=== PATIENT | male | born 1945 | race Caucasian/White ===

== ENCOUNTER 2017-08-12 12:25 | Inpatient (IN) | payer MEDICARE ==
[2017-08-12] MEDS: ALLOPURINOL 300 MG TAB PO (09:00)
[2017-08-12] MEDS: ESCITALOPRAM OXALATE 10 MG TAB (LEXAPRO) PO (09:00)
[2017-08-12] MEDS: DULoxetine 30 MG CAP (CYMBALTA) PO (09:00)
[2017-08-12] MEDS: NS 2,400 ML in APPROPRIATE DILUENT 1 EA IV (13:00)
[2017-08-12 13:12] LABS: HEMATOCRIT 44.8 % (42.0-52.0); HEMOGLOBIN 14.9 g/dl (13.5-17.5); MEAN CORPUSCULAR HEMOGLOBIN 31.8 pg (27.0-33.0); MEAN CORPUSCULAR HGB CONC 33.3 g/dl (32.0-36.5); MEAN CORPUSCULAR VOLUME 95.7 fl (80.0-96.0); PLATELET COUNT, AUTOMATED 144 10^3/uL (150-450); RED BLOOD COUNT 4.68 10^6/uL (4.30-6.10); RED CELL DISTRIBUTION WIDTH 16.1 % (11.5-14.5); WHITE BLOOD COUNT 17.4 10^3/uL (4.0-10.0)
[2017-08-12 13:17] LABS: PROTHROMBIN TIME 15.4 SECONDS (12.4-14.5)
[2017-08-12 13:18] LABS: PARTIAL THROMBOPLASTIN TIME 34.6 SECONDS (26.8-37.9)
[2017-08-12 13:28] LABS: ALBUMIN/GLOBULIN RATIO 0.73 (1.00-1.93); ALKALINE PHOSPHATASE 102 U/L (45-117); ALT/SGPT 255 U/L (12-78); AMYLASE 16 U/L (25-115); ANION GAP 8 MEQ/L (8-16); AST/SGOT 370 U/L (7-37); BILIRUBIN,DIRECT 0.2 MG/DL (0.0-0.2); BILIRUBIN,TOTAL 0.5 MG/DL (0.2-1.0); BLOOD UREA NITROGEN 39 MG/DL (7-18); CARBON DIOXIDE LEVEL 25 MEQ/L (21-32); CHLORIDE LEVEL 97 MEQ/L (98-107); CPK CREATINE PHOSPHOKINASE 329 U/L (39-308); CREATININE FOR GFR 3.44 MG/DL (0.70-1.30); GLOMERULAR FILTRATION RATE 18.9 (>42); GLUCOSE, FASTING 111 MG/DL (70-100); MB/CK RELATIVE INDEX 4.55 (< OR =4); POTASSIUM SERUM 5.1 MEQ/L (3.5-5.1); SODIUM LEVEL 130 MEQ/L (136-145); TOTAL PROTEIN 7.1 GM/DL (6.4-8.2)
[2017-08-12 13:38] LABS: ADD MANUAL DIFFER YES; DIFF SLIDE NUMBER 285; POSITIVE MORPH POS FLAG
[2017-08-12 13:40] LABS: BANDS 8 % (< 11); LYMPHOCYTES 9 % (16-52); MONOCYTES 5 % (0-8); NEUTROPHILS 78 % (35-75)
[2017-08-12 13:41] LABS: LACTIC ACID SEPSIS PROTOCOL 3.9 MMOL/L (0.4-2.0)
[2017-08-12 13:41] LABS: PLATELET ESTIMATE DECREASED (NORMAL); TROPONIN I 2.62 NG/ML (< 0.10)
[2017-08-12 13:42] LABS: ANISOCYTOSIS 1+; POLYCHROMASIA 1+
[2017-08-12 14:03] LABS: INFLUENZA A AMPLIFICATION NEGATIVE (NEGATIVE); INFLUENZA B AMPLIFICATION NEGATIVE (NEGATIVE)
[2017-08-12 14:06] LABS: ABG BASE EXCESS -5.7 (-2.0-2.0); ABG HCO3 19.6 MEQ/L (22.0-26.0); ABG O2 SATURATION 93.5 % (95.0-99.0); ABG PARTIAL PRESSURE CO2 37.8 mmHg (35.0-45.0); ABG PARTIAL PRESSURE O2 72.8 mmHg (75.0-100.0); ABG STANDARD HCO3 19.8 MEQ/L (22.0-26.0); ABG TOTAL CO2 20.8 MEQ/L (23.0-31.0); ABG pH (ARTERIAL) 7.333 UNITS (7.350-7.450)
[2017-08-12] MEDS: VANCOMYCIN 1000 MG/20 ML VIAL (J3370) IP (14:30)
[2017-08-12] MEDS: IMIPENEM/CILASTATIN 500 MG in D5W MINI-BAG PLUS 100 ML IV (14:30)
[2017-08-12] MEDS: NOREPINEPHRINE BITARTRATE 8 MG in D5W 500 ML IV (14:35)
[2017-08-12] MEDS: NS 1,000 ML IV ×2 (14:45→16:00)
[2017-08-12] MEDS: VANCOMYCIN HCL 1,000 MG, VIAL MATE ADAPTER 1 EACH in D5W 250 ML IV ×2 (14:45→21:40)
[2017-08-12 16:04] LABS: APPEARANCE, URINE HAZY (CLEAR); BACTERIA, URINE AUTO 3+ (NEGATIVE); BILIRUBIN, URINE AUTO NEGATIVE (NEGATIVE); BLOOD, URINE BLOOD 2+ (NEGATIVE); COLOR, URINE YELLOW (YELLOW); GLUCOSE, URINE (UA) AUTO NEGATIVE (NEGATIVE); KETONE, URINE AUTO NEGATIVE (NEGATIVE); LEUKOCYTE ESTERASE, URINE AUTO 2+ (NEGATIVE); NITRITE, URINE AUTO NEGATIVE (NEGATIVE); PROTEIN, URINE AUTO 1+ mg/dL (NEGATIVE); RBC, URINE AUTO 14 /HPF (0-3); SPECIFIC GRAVITY URINE AUTO 1.013 (1.002-1.035); SQUAMOUS EPITHELIAL CELL UR AU 0 /HPF (0-6); UROBILINOGEN, URINE AUTO 0.2 mg/dL (0.0-2.0); WBC, URINE AUTO 15 /HPF (0-3)
[2017-08-12] MEDS ORDERED: VANCOMYCIN HCL 750 MG, VIAL MATE ADAPTER 1 EACH in D5W 250 ML IV (17:45)
[2017-08-12] MEDS: MORPHINE 4 MG/ML 1ML VIAL/SYRINGE (J2270) IV (19:47)
[2017-08-12] MEDS: ACETAMINOPHEN TAB 650MG DOSE (2X325MG) PO ×2 (19:49→23:25)
[2017-08-12 19:55] LABS: CPK CREATINE PHOSPHOKINASE 537 U/L (39-308); THYROXINE (T4) 6.3 UG/DL (4.5-12.0)
[2017-08-12 19:59] LABS: CK-MB VALUE MASS 26.6 NG/ML (<3.6); FREE THYROXINE INDEX 2.3 % (1.4-3.8); MB/CK RELATIVE INDEX 4.95 (< OR =4); T UPTAKE 36 % (33-40)
[2017-08-12] MEDS ORDERED: NOREPINEPHRINE BITARTRATE 16 MG in D5W 484 ML IV (20:00)
[2017-08-12 20:04] LABS: TROPONIN I 3.22 NG/ML (< 0.10)
[2017-08-12 20:08] LABS: OSMOLALITY URINE 275 MOSM/KG (500-800)
[2017-08-12 20:16] LABS: CHLORIDE,RANDOM URINE 14 MEQ/L; POTASSIUM RANDOM URINE 42.5 MEQ/L; SODIUM,RANDOM URINE 15 MEQ/L; TOTAL PROTEIN,RANDOM URINE 86.3 MG/DL (0.0-12.0)
[2017-08-12] MEDS: TAMSULOSIN 0.4 MG CAP PO (20:24)
[2017-08-12] MEDS: METOPROLOL TART 25 MG TABLET PO (20:25)
[2017-08-12] MEDS: IMIPENEM/CILASTATIN 250 MG in D5W MINI-BAG PLUS 100 ML IV (20:34)
[2017-08-12] MEDS ORDERED: IPRATROPIUM 0.5MG/ALBUTEROL 2.5MG INH SOL UD 3ML (DUONEB)(J7620) NEB (21:30)
[2017-08-12] MEDS: PANTOPRAZOLE 40MG INJ (PROTONIX) (C9113) IV (21:37)
[2017-08-12] MEDS: SENOKOT S TAB PO (21:37)
[2017-08-12] MEDS: HEPARIN SOD (PORCINE) 5000 UNITS/ML VIAL SC (21:37)
[2017-08-12] MEDS: GABAPENTIN 300 MG CAP PO (21:37)
[2017-08-12] MEDS: ACYCLOVIR 200 MG CAPSULE PO (21:39)
[2017-08-12] MEDS: ASPIRIN 81 MG ENTERIC TAB PO (21:40)
[2017-08-12 23:13] LABS: ABG BASE EXCESS -4.5 (-2.0-2.0); ABG HCO3 19.9 MEQ/L (22.0-26.0); ABG O2 SATURATION 99.3 % (95.0-99.0); ABG PARTIAL PRESSURE CO2 34.8 mmHg (35.0-45.0); ABG PARTIAL PRESSURE O2 158.4 mmHg (75.0-100.0); ABG STANDARD HCO3 20.8 MEQ/L (22.0-26.0); ABG pH (ARTERIAL) 7.376 UNITS (7.350-7.450)
[2017-08-12] MEDS: VANCOMYCIN HCL 500 MG in D5W MINI-BAG PLUS 100 ML IV (23:25)
[2017-08-13 00:12] LABS: CK-MB VALUE MASS 15.3 NG/ML (<3.6); CPK CREATINE PHOSPHOKINASE 420 U/L (39-308); MB/CK RELATIVE INDEX 3.64 (< OR =4)
[2017-08-13 00:17] LABS: TROPONIN I 4.39 NG/ML (< 0.10)
[2017-08-13] MEDS: IPRATROPIUM 0.5MG/ALBUTEROL 2.5MG INH SOL UD 3ML (DUONEB)(J7620) NEB ×4 (02:34→20:39)
[2017-08-13] MEDS: IMIPENEM/CILASTATIN 250 MG in D5W MINI-BAG PLUS 100 ML IV ×4 (04:13→20:16)
[2017-08-13] MEDS: NS 1,000 ML IV (04:17)
[2017-08-13] MEDS: HEPARIN SOD (PORCINE) 5000 UNITS/ML VIAL SC ×3 (05:48→21:06)
[2017-08-13 06:05] LABS: HEMATOCRIT 35.8 % (42.0-52.0); MEAN CORPUSCULAR HEMOGLOBIN 31.8 pg (27.0-33.0); MEAN CORPUSCULAR HGB CONC 33.2 g/dl (32.0-36.5); MEAN CORPUSCULAR VOLUME 95.7 fl (80.0-96.0); PLATELET COUNT, AUTOMATED 116 10^3/uL (150-450); RED BLOOD COUNT 3.74 10^6/uL (4.30-6.10); WHITE BLOOD COUNT 18.2 10^3/uL (4.0-10.0)
[2017-08-13 06:10] LABS: HEMOGLOBIN 11.9 g/dl (13.5-17.5)
[2017-08-13 06:33] LABS: VANCOMYCIN RANDOM 19.9 UG/ML
[2017-08-13 06:38] LABS: ALBUMIN 2.4 GM/DL (3.2-5.2); ALBUMIN/GLOBULIN RATIO 0.83 (1.00-1.93); ALKALINE PHOSPHATASE 86 U/L (45-117); ALT/SGPT 177 U/L (12-78); ANION GAP 7 MEQ/L (8-16); AST/SGOT 182 U/L (7-37); BILIRUBIN,TOTAL 0.5 MG/DL (0.2-1.0); BLOOD UREA NITROGEN 40 MG/DL (7-18); CALCIUM LEVEL 7.6 MG/DL (8.8-10.2); CARBON DIOXIDE LEVEL 22 MEQ/L (21-32); CHLORIDE LEVEL 106 MEQ/L (98-107); CREATININE FOR GFR 1.96 MG/DL (0.70-1.30); GLOMERULAR FILTRATION RATE 36.2 (>42); GLUCOSE, FASTING 106 MG/DL (70-100); MAGNESIUM LEVEL 2.1 MG/DL (1.8-2.4); POTASSIUM SERUM 4.6 MEQ/L (3.5-5.1); SODIUM LEVEL 135 MEQ/L (136-145); TOTAL PROTEIN 5.3 GM/DL (6.4-8.2)
[2017-08-13 06:41] LABS: CK-MB VALUE MASS 13.5 NG/ML (<3.6); CPK CREATINE PHOSPHOKINASE 289 U/L (39-308); MB/CK RELATIVE INDEX 4.67 (< OR =4)
[2017-08-13 06:43] LABS: TROPONIN I 2.63 NG/ML (< 0.10)
[2017-08-13] MEDS ORDERED: NOREPINEPHRINE BITARTRATE 8 MG in D5W 500 ML IV (07:14)
[2017-08-13] MEDS: METOPROLOL TART 25 MG TABLET PO ×2 (09:00→20:00)
[2017-08-13] MEDS: VANCOMYCIN HCL 1,000 MG, VIAL MATE ADAPTER 1 EACH in D5W 250 ML IV (09:25)
[2017-08-13] MEDS: TAMSULOSIN 0.4 MG CAP PO ×2 (09:25→20:16)
[2017-08-13] MEDS: GABAPENTIN 300 MG CAP PO ×3 (09:26→20:16)
[2017-08-13] MEDS: ALLOPURINOL 300 MG TAB PO (09:26)
[2017-08-13] MEDS: ACYCLOVIR 200 MG CAPSULE PO ×3 (09:26→20:16)
[2017-08-13] MEDS: ASPIRIN 81 MG ENTERIC TAB PO (09:26)
[2017-08-13] MEDS: SENOKOT S TAB PO ×2 (09:26→20:16)
[2017-08-13] MEDS: ESCITALOPRAM OXALATE 10 MG TAB (LEXAPRO) PO (09:26)
[2017-08-13] MEDS: DULoxetine 30 MG CAP (CYMBALTA) PO (09:26)
[2017-08-13 10:08] LABS: CORTISOL AM 24.4 UG/DL (4.3-22.4)
[2017-08-13] MEDS: MORPHINE 4 MG/ML 1ML VIAL/SYRINGE (J2270) IV ×3 (12:22→20:16)
[2017-08-13] MEDS: PANTOPRAZOLE 40MG INJ (PROTONIX) (C9113) IV (20:16)
[2017-08-13] MEDS: ACETAMINOPHEN TAB 650MG DOSE (2X325MG) PO (21:06)
[2017-08-14] MEDS: MORPHINE 4 MG/ML 1ML VIAL/SYRINGE (J2270) IV ×3 (00:16→08:41)
[2017-08-14] MEDS: IPRATROPIUM 0.5MG/ALBUTEROL 2.5MG INH SOL UD 3ML (DUONEB)(J7620) NEB ×4 (01:39→21:13)
[2017-08-14] MEDS: IMIPENEM/CILASTATIN 250 MG in D5W MINI-BAG PLUS 100 ML IV ×2 (02:55→09:02)
[2017-08-14 05:44] LABS: HEMATOCRIT 37.7 % (42.0-52.0); HEMOGLOBIN 12.6 g/dl (13.5-17.5); MEAN CORPUSCULAR HEMOGLOBIN 31.3 pg (27.0-33.0); MEAN CORPUSCULAR HGB CONC 33.4 g/dl (32.0-36.5); MEAN CORPUSCULAR VOLUME 93.8 fl (80.0-96.0); PLATELET COUNT, AUTOMATED 111 10^3/uL (150-450); RED BLOOD COUNT 4.02 10^6/uL (4.30-6.10); RED CELL DISTRIBUTION WIDTH 15.7 % (11.5-14.5); WHITE BLOOD COUNT 10.4 10^3/uL (4.0-10.0)
[2017-08-14] MEDS: ACETAMINOPHEN TAB 650MG DOSE (2X325MG) PO ×2 (06:05→19:01)
[2017-08-14] MEDS: HEPARIN SOD (PORCINE) 5000 UNITS/ML VIAL SC (06:05)
[2017-08-14 06:13] LABS: ALBUMIN 2.4 GM/DL (3.2-5.2); ALBUMIN/GLOBULIN RATIO 0.83 (1.00-1.93); ALKALINE PHOSPHATASE 85 U/L (45-117); ALT/SGPT 132 U/L (12-78); ANION GAP 7 MEQ/L (8-16); AST/SGOT 86 U/L (7-37); BILIRUBIN,TOTAL 0.5 MG/DL (0.2-1.0); BLOOD UREA NITROGEN 29 MG/DL (7-18); CALCIUM LEVEL 7.8 MG/DL (8.8-10.2); CARBON DIOXIDE LEVEL 24 MEQ/L (21-32); CHLORIDE LEVEL 107 MEQ/L (98-107); CREATININE FOR GFR 1.33 MG/DL (0.70-1.30); GLOMERULAR FILTRATION RATE 56.6 (>42); GLUCOSE, FASTING 85 MG/DL (70-100); POTASSIUM SERUM 4.5 MEQ/L (3.5-5.1); SODIUM LEVEL 138 MEQ/L (136-145); TOTAL PROTEIN 5.3 GM/DL (6.4-8.2)
[2017-08-14] MEDS: NOREPINEPHRINE BITARTRATE 16 MG in D5W 484 ML IV (08:35)
[2017-08-14] MEDS: TAMSULOSIN 0.4 MG CAP PO ×2 (09:04→20:36)
[2017-08-14] MEDS: VANCOMYCIN HCL 1,000 MG, VIAL MATE ADAPTER 1 EACH in D5W 250 ML IV (09:04)
[2017-08-14] MEDS: SENOKOT S TAB PO ×2 (09:04→20:36)
[2017-08-14] MEDS: ALLOPURINOL 300 MG TAB PO (09:05)
[2017-08-14] MEDS: DULoxetine 30 MG CAP (CYMBALTA) PO (09:05)
[2017-08-14] MEDS: ASPIRIN 81 MG ENTERIC TAB PO (09:06)
[2017-08-14] MEDS: METOPROLOL TART 25 MG TABLET PO ×2 (09:06→20:36)
[2017-08-14] MEDS: GABAPENTIN 300 MG CAP PO ×3 (09:06→20:36)
[2017-08-14] MEDS: ACYCLOVIR 200 MG CAPSULE PO ×3 (09:06→20:36)
[2017-08-14] MEDS ORDERED: SODIUM CHLORIDE 0.9% INJ 10 ML SYR IV (10:00)
[2017-08-14] MEDS: ESCITALOPRAM OXALATE 10 MG TAB (LEXAPRO) PO (10:26)
[2017-08-14] MEDS: BACLOFEN 10 MG TAB PO ×2 (12:06→20:36)
[2017-08-14] MEDS: ERTAPENEM SODIUM 1 GM in NS MINI-BAG PLUS 50 ML IV (12:06)
[2017-08-14] MEDS: MORPHINE 30 MG SA TAB PO ×2 (13:48→21:37)
[2017-08-14] MEDS: SODIUM CHLORIDE 0.9% INJ 10 ML SYR IV ×2 (13:48→20:38)
[2017-08-14] MEDS: ONDANSETRON 4MG/2ML VIAL (J2405) IV (18:26)
[2017-08-14] MEDS: PANTOPRAZOLE 40MG INJ (PROTONIX) (C9113) IV (20:37)
[2017-08-15] MEDS: IPRATROPIUM 0.5MG/ALBUTEROL 2.5MG INH SOL UD 3ML (DUONEB)(J7620) NEB ×4 (01:45→21:15)
[2017-08-15] MEDS: MORPHINE 30 MG SA TAB PO ×3 (05:15→20:54)
[2017-08-15] MEDS: SODIUM CHLORIDE 0.9% INJ 10 ML SYR IV ×3 (05:15→20:52)
[2017-08-15 05:36] LABS: HEMATOCRIT 39.3 % (42.0-52.0); HEMOGLOBIN 13.3 g/dl (13.5-17.5); MEAN CORPUSCULAR HEMOGLOBIN 31.4 pg (27.0-33.0); MEAN CORPUSCULAR HGB CONC 33.8 g/dl (32.0-36.5); MEAN CORPUSCULAR VOLUME 92.9 fl (80.0-96.0); PLATELET COUNT, AUTOMATED 119 10^3/uL (150-450); RED BLOOD COUNT 4.23 10^6/uL (4.30-6.10); RED CELL DISTRIBUTION WIDTH 15.9 % (11.5-14.5); WHITE BLOOD COUNT 8.7 10^3/uL (4.0-10.0)
[2017-08-15 05:57] LABS: ALBUMIN 2.3 GM/DL (3.2-5.2); ALBUMIN/GLOBULIN RATIO 0.82 (1.00-1.93); ALKALINE PHOSPHATASE 83 U/L (45-117); ALT/SGPT 93 U/L (12-78); ANION GAP 3 MEQ/L (8-16); AST/SGOT 48 U/L (7-37); BILIRUBIN,TOTAL 0.4 MG/DL (0.2-1.0); BLOOD UREA NITROGEN 19 MG/DL (7-18); CALCIUM LEVEL 7.8 MG/DL (8.8-10.2); CARBON DIOXIDE LEVEL 28 MEQ/L (21-32); CHLORIDE LEVEL 110 MEQ/L (98-107); CREATININE FOR GFR 1.09 MG/DL (0.70-1.30); GLOMERULAR FILTRATION RATE > 60.0 (>42); GLUCOSE, FASTING 91 MG/DL (70-100); MAGNESIUM LEVEL 1.8 MG/DL (1.8-2.4); POTASSIUM SERUM 3.9 MEQ/L (3.5-5.1); SODIUM LEVEL 141 MEQ/L (136-145); TOTAL PROTEIN 5.1 GM/DL (6.4-8.2)
[2017-08-15] MEDS: GABAPENTIN 300 MG CAP PO ×3 (08:27→20:51)
[2017-08-15] MEDS: ESCITALOPRAM OXALATE 10 MG TAB (LEXAPRO) PO (08:27)
[2017-08-15] MEDS: DULoxetine 30 MG CAP (CYMBALTA) PO (08:27)
[2017-08-15] MEDS: ACYCLOVIR 200 MG CAPSULE PO ×3 (08:27→20:51)
[2017-08-15] MEDS: ALLOPURINOL 300 MG TAB PO (08:27)
[2017-08-15] MEDS: ASPIRIN 81 MG ENTERIC TAB PO (08:28)
[2017-08-15] MEDS: METOPROLOL TART 25 MG TABLET PO ×2 (08:28→20:54)
[2017-08-15] MEDS: TAMSULOSIN 0.4 MG CAP PO ×2 (08:28→20:52)
[2017-08-15] MEDS: BACLOFEN 10 MG TAB PO ×2 (08:28→20:52)
[2017-08-15] MEDS: SENOKOT S TAB PO ×2 (08:28→20:52)
[2017-08-15] MEDS: FINASTERIDE 5 MG TAB PO (11:02)
[2017-08-15] MEDS: ERTAPENEM SODIUM 1 GM in NS MINI-BAG PLUS 50 ML IV (11:20)
[2017-08-15] MEDS: PANTOPRAZOLE 40MG INJ (PROTONIX) (C9113) IV (20:51)
[2017-08-15] MEDS: ATORVASTATIN 20 MG TAB PO (20:51)
[2017-08-16] MEDS: IPRATROPIUM 0.5MG/ALBUTEROL 2.5MG INH SOL UD 3ML (DUONEB)(J7620) NEB ×4 (02:20→19:57)
[2017-08-16] MEDS: MORPHINE 30 MG SA TAB PO ×2 (05:35→13:29)
[2017-08-16] MEDS: SODIUM CHLORIDE 0.9% INJ 10 ML SYR IV ×3 (05:36→21:29)
[2017-08-16 05:55] LABS: HEMOGLOBIN 12.5 g/dl (13.5-17.5); MEAN CORPUSCULAR HEMOGLOBIN 31.6 pg (27.0-33.0); MEAN CORPUSCULAR HGB CONC 33.8 g/dl (32.0-36.5); MEAN CORPUSCULAR VOLUME 93.4 fl (80.0-96.0); PLATELET COUNT, AUTOMATED 128 10^3/uL (150-450); RED BLOOD COUNT 3.96 10^6/uL (4.30-6.10); RED CELL DISTRIBUTION WIDTH 15.8 % (11.5-14.5); WHITE BLOOD COUNT 6.4 10^3/uL (4.0-10.0)
[2017-08-16 06:14] LABS: ALBUMIN 2.2 GM/DL (3.2-5.2); ALBUMIN/GLOBULIN RATIO 0.69 (1.00-1.93); ALKALINE PHOSPHATASE 72 U/L (45-117); ALT/SGPT 55 U/L (12-78); ANION GAP 6 MEQ/L (8-16); AST/SGOT 23 U/L (7-37); BILIRUBIN,TOTAL 0.4 MG/DL (0.2-1.0); BLOOD UREA NITROGEN 18 MG/DL (7-18); C REACTIVE PROTEIN QUANTITATIV 8.37 MG/DL (0.00-0.30); CALCIUM LEVEL 7.8 MG/DL (8.8-10.2); CARBON DIOXIDE LEVEL 26 MEQ/L (21-32); CHLORIDE LEVEL 106 MEQ/L (98-107); CREATININE FOR GFR 1.12 MG/DL (0.70-1.30); GLOMERULAR FILTRATION RATE > 60.0 (>42); GLUCOSE, FASTING 95 MG/DL (70-100); MAGNESIUM LEVEL 1.7 MG/DL (1.8-2.4); POTASSIUM SERUM 3.7 MEQ/L (3.5-5.1); SODIUM LEVEL 138 MEQ/L (136-145); TOTAL PROTEIN 5.4 GM/DL (6.4-8.2)
[2017-08-16] MEDS: MAG SULF 1GM/100ML (MAG RUN) 1 GM in APPROPRIATE DILUENT 1 EA IV (08:24)
[2017-08-16] MEDS: SENOKOT S TAB PO ×2 (08:24→20:33)
[2017-08-16] MEDS: ASPIRIN 81 MG ENTERIC TAB PO (08:24)
[2017-08-16] MEDS: GABAPENTIN 300 MG CAP PO ×3 (08:25→20:33)
[2017-08-16] MEDS: TAMSULOSIN 0.4 MG CAP PO ×2 (08:25→20:33)
[2017-08-16] MEDS: BACLOFEN 10 MG TAB PO ×2 (08:25→20:34)
[2017-08-16] MEDS: FINASTERIDE 5 MG TAB PO (08:25)
[2017-08-16] MEDS: ESCITALOPRAM OXALATE 10 MG TAB (LEXAPRO) PO (08:25)
[2017-08-16] MEDS: ALLOPURINOL 300 MG TAB PO (08:25)
[2017-08-16] MEDS: DULoxetine 30 MG CAP (CYMBALTA) PO (08:25)
[2017-08-16] MEDS: ACYCLOVIR 200 MG CAPSULE PO ×3 (08:25→20:33)
[2017-08-16] MEDS: METOPROLOL TART 25 MG TABLET PO ×2 (08:26→20:34)
[2017-08-16] MEDS: POTASSIUM CHLORIDE 10 MEQ SR TABLET PO (08:26)
[2017-08-16] MEDS: ERTAPENEM SODIUM 1 GM in NS MINI-BAG PLUS 50 ML IV (12:22)
[2017-08-16] MEDS: NS 500 ML IV (14:12)
[2017-08-16] MEDS: NS 1,000 ML IV (15:21)
[2017-08-16] MEDS: ATORVASTATIN 20 MG TAB PO (20:33)
[2017-08-16] MEDS: PANTOPRAZOLE 40MG INJ (PROTONIX) (C9113) IV (20:34)
[2017-08-16] MEDS: MORPHINE 15 MG SA TAB PO (21:28)
[2017-08-17] MEDS: IPRATROPIUM 0.5MG/ALBUTEROL 2.5MG INH SOL UD 3ML (DUONEB)(J7620) NEB ×4 (01:59→20:00)
[2017-08-17 04:04] LABS: HEMATOCRIT 36.8 % (42.0-52.0); HEMOGLOBIN 12.4 g/dl (13.5-17.5); MEAN CORPUSCULAR HEMOGLOBIN 31.8 pg (27.0-33.0); MEAN CORPUSCULAR HGB CONC 33.7 g/dl (32.0-36.5); MEAN CORPUSCULAR VOLUME 94.4 fl (80.0-96.0); PLATELET COUNT, AUTOMATED 149 10^3/uL (150-450); RED CELL DISTRIBUTION WIDTH 15.9 % (11.5-14.5); WHITE BLOOD COUNT 6.5 10^3/uL (4.0-10.0)
[2017-08-17 04:24] LABS: ALBUMIN/GLOBULIN RATIO 0.63 (1.00-1.93); ALKALINE PHOSPHATASE 68 U/L (45-117); ALT/SGPT 43 U/L (12-78); ANION GAP 5 MEQ/L (8-16); AST/SGOT 22 U/L (7-37); BILIRUBIN,TOTAL 0.3 MG/DL (0.2-1.0); BLOOD UREA NITROGEN 16 MG/DL (7-18); C REACTIVE PROTEIN QUANTITATIV 7.73 MG/DL (0.00-0.30); CALCIUM LEVEL 7.7 MG/DL (8.8-10.2); CARBON DIOXIDE LEVEL 28 MEQ/L (21-32); CHLORIDE LEVEL 110 MEQ/L (98-107); CREATININE FOR GFR 0.95 MG/DL (0.70-1.30); GLOMERULAR FILTRATION RATE > 60.0 (>42); GLUCOSE, FASTING 109 MG/DL (70-100); MAGNESIUM LEVEL 1.9 MG/DL (1.8-2.4); POTASSIUM SERUM 3.9 MEQ/L (3.5-5.1); SODIUM LEVEL 143 MEQ/L (136-145); TOTAL PROTEIN 5.2 GM/DL (6.4-8.2)
[2017-08-17] MEDS: MORPHINE 15 MG SA TAB PO ×3 (05:56→21:21)
[2017-08-17] MEDS: SODIUM CHLORIDE 0.9% INJ 10 ML SYR IV ×3 (05:56→21:22)
[2017-08-17] MEDS: TAMSULOSIN 0.4 MG CAP PO ×2 (08:48→21:21)
[2017-08-17] MEDS: FINASTERIDE 5 MG TAB PO (08:48)
[2017-08-17] MEDS: DULoxetine 30 MG CAP (CYMBALTA) PO (08:48)
[2017-08-17] MEDS: ACYCLOVIR 200 MG CAPSULE PO ×3 (08:48→21:21)
[2017-08-17] MEDS: METOPROLOL TART 25 MG TABLET PO ×2 (08:49→21:22)
[2017-08-17] MEDS: BACLOFEN 10 MG TAB PO ×2 (08:49→21:21)
[2017-08-17] MEDS: ASPIRIN 81 MG ENTERIC TAB PO (08:49)
[2017-08-17] MEDS: SENOKOT S TAB PO ×2 (08:49→21:20)
[2017-08-17] MEDS: ALLOPURINOL 300 MG TAB PO (08:49)
[2017-08-17] MEDS: ESCITALOPRAM OXALATE 10 MG TAB (LEXAPRO) PO (08:49)
[2017-08-17] MEDS: GABAPENTIN 300 MG CAP PO ×3 (08:49→21:21)
[2017-08-17] MEDS: ERTAPENEM SODIUM 1 GM in NS MINI-BAG PLUS 50 ML IV (13:06)
[2017-08-17] MEDS: POTASSIUM CHLORIDE 10 MEQ SR TABLET PO (13:06)
[2017-08-17] MEDS: MAG SULF 1GM/100ML (MAG RUN) 1 GM in APPROPRIATE DILUENT 1 EA IV (13:46)
[2017-08-17] MEDS: PANTOPRAZOLE 40MG INJ (PROTONIX) (C9113) IV (20:34)
[2017-08-17] MEDS: ATORVASTATIN 20 MG TAB PO (21:20)
[2017-08-18] MEDS: IPRATROPIUM 0.5MG/ALBUTEROL 2.5MG INH SOL UD 3ML (DUONEB)(J7620) NEB ×4 (02:00→20:49)
[2017-08-18 05:12] LABS: HEMOGLOBIN 13.2 g/dl (13.5-17.5); MEAN CORPUSCULAR HEMOGLOBIN 31.4 pg (27.0-33.0); MEAN CORPUSCULAR HGB CONC 33.8 g/dl (32.0-36.5); MEAN CORPUSCULAR VOLUME 92.6 fl (80.0-96.0); PLATELET COUNT, AUTOMATED 184 10^3/uL (150-450); RED BLOOD COUNT 4.21 10^6/uL (4.30-6.10); RED CELL DISTRIBUTION WIDTH 15.7 % (11.5-14.5); WHITE BLOOD COUNT 6.5 10^3/uL (4.0-10.0)
[2017-08-18 05:30] LABS: ALBUMIN 2.1 GM/DL (3.2-5.2); ALBUMIN/GLOBULIN RATIO 0.62 (1.00-1.93); ALKALINE PHOSPHATASE 66 U/L (45-117); ALT/SGPT 39 U/L (12-78); ANION GAP 3 MEQ/L (8-16); AST/SGOT 23 U/L (7-37); BILIRUBIN,TOTAL 0.5 MG/DL (0.2-1.0); BLOOD UREA NITROGEN 14 MG/DL (7-18); C REACTIVE PROTEIN QUANTITATIV 6.72 MG/DL (0.00-0.30); CALCIUM LEVEL 8.2 MG/DL (8.8-10.2); CARBON DIOXIDE LEVEL 31 MEQ/L (21-32); CHLORIDE LEVEL 108 MEQ/L (98-107); CREATININE FOR GFR 0.97 MG/DL (0.70-1.30); GLOMERULAR FILTRATION RATE > 60.0 (>42); GLUCOSE, FASTING 101 MG/DL (70-100); MAGNESIUM LEVEL 1.9 MG/DL (1.8-2.4); POTASSIUM SERUM 3.9 MEQ/L (3.5-5.1); SODIUM LEVEL 142 MEQ/L (136-145); TOTAL PROTEIN 5.5 GM/DL (6.4-8.2)
[2017-08-18] MEDS: SODIUM CHLORIDE 0.9% INJ 10 ML SYR IV ×2 (06:00→14:00)
[2017-08-18] MEDS: MORPHINE 15 MG SA TAB PO ×3 (06:09→21:46)
[2017-08-18] MEDS: DULoxetine 30 MG CAP (CYMBALTA) PO (09:31)
[2017-08-18] MEDS: ASPIRIN 81 MG ENTERIC TAB PO (09:31)
[2017-08-18] MEDS: ESCITALOPRAM OXALATE 10 MG TAB (LEXAPRO) PO (09:32)
[2017-08-18] MEDS: ACYCLOVIR 200 MG CAPSULE PO ×3 (09:32→21:46)
[2017-08-18] MEDS: POTASSIUM CHLORIDE 10 MEQ SR TABLET PO (09:32)
[2017-08-18] MEDS: METOPROLOL TART 25 MG TABLET PO ×2 (09:32→21:46)
[2017-08-18] MEDS: GABAPENTIN 300 MG CAP PO ×3 (09:32→21:45)
[2017-08-18] MEDS: ALLOPURINOL 300 MG TAB PO (09:32)
[2017-08-18] MEDS: BACLOFEN 10 MG TAB PO ×2 (09:32→21:47)
[2017-08-18] MEDS: FINASTERIDE 5 MG TAB PO (09:32)
[2017-08-18] MEDS: MAG SULF 1GM/100ML (MAG RUN) 1 GM in APPROPRIATE DILUENT 1 EA IV (09:33)
[2017-08-18] MEDS: TAMSULOSIN 0.4 MG CAP PO ×2 (09:33→21:45)
[2017-08-18] MEDS: SENOKOT S TAB PO ×2 (09:33→21:47)
[2017-08-18] MEDS: ERTAPENEM SODIUM 1 GM in NS MINI-BAG PLUS 50 ML IV (12:08)
[2017-08-18] MEDS: PANTOPRAZOLE 40MG INJ (PROTONIX) (C9113) IV (20:10)
[2017-08-18] MEDS: ATORVASTATIN 20 MG TAB PO (21:45)
[2017-08-18] MEDS: ACETAMINOPHEN TAB 650MG DOSE (2X325MG) PO (22:29)
[2017-08-19] MEDS: IPRATROPIUM 0.5MG/ALBUTEROL 2.5MG INH SOL UD 3ML (DUONEB)(J7620) NEB ×4 (02:00→21:33)
[2017-08-19] MEDS: MORPHINE 15 MG SA TAB PO ×3 (05:58→21:24)
[2017-08-19 06:26] LABS: HEMATOCRIT 37.8 % (42.0-52.0); HEMOGLOBIN 12.7 g/dl (13.5-17.5); MEAN CORPUSCULAR HEMOGLOBIN 31.3 pg (27.0-33.0); MEAN CORPUSCULAR HGB CONC 33.6 g/dl (32.0-36.5); MEAN CORPUSCULAR VOLUME 93.1 fl (80.0-96.0); PLATELET COUNT, AUTOMATED 231 10^3/uL (150-450); RED BLOOD COUNT 4.06 10^6/uL (4.30-6.10); RED CELL DISTRIBUTION WIDTH 15.5 % (11.5-14.5); WHITE BLOOD COUNT 6.5 10^3/uL (4.0-10.0)
[2017-08-19 06:53] LABS: ALBUMIN 2.3 GM/DL (3.2-5.2); ALBUMIN/GLOBULIN RATIO 0.66 (1.00-1.93); ALKALINE PHOSPHATASE 68 U/L (45-117); ALT/SGPT 34 U/L (12-78); ANION GAP 6 MEQ/L (8-16); AST/SGOT 18 U/L (7-37); BILIRUBIN,TOTAL 0.5 MG/DL (0.2-1.0); BLOOD UREA NITROGEN 16 MG/DL (7-18); CALCIUM LEVEL 7.9 MG/DL (8.8-10.2); CARBON DIOXIDE LEVEL 29 MEQ/L (21-32); CHLORIDE LEVEL 108 MEQ/L (98-107); CREATININE FOR GFR 0.95 MG/DL (0.70-1.30); GLOMERULAR FILTRATION RATE > 60.0 (>42); GLUCOSE, FASTING 84 MG/DL (70-100); MAGNESIUM LEVEL 2.1 MG/DL (1.8-2.4); POTASSIUM SERUM 3.7 MEQ/L (3.5-5.1); SODIUM LEVEL 143 MEQ/L (136-145); TOTAL PROTEIN 5.8 GM/DL (6.4-8.2)
[2017-08-19] MEDS: METOPROLOL TART 25 MG TABLET PO ×2 (09:56→20:17)
[2017-08-19] MEDS: ASPIRIN 81 MG ENTERIC TAB PO (09:56)
[2017-08-19] MEDS: ACYCLOVIR 200 MG CAPSULE PO ×3 (09:56→20:16)
[2017-08-19] MEDS: FINASTERIDE 5 MG TAB PO (09:57)
[2017-08-19] MEDS: BACLOFEN 10 MG TAB PO ×2 (09:57→20:17)
[2017-08-19] MEDS: ESCITALOPRAM OXALATE 10 MG TAB (LEXAPRO) PO (09:57)
[2017-08-19] MEDS: DULoxetine 30 MG CAP (CYMBALTA) PO (09:57)
[2017-08-19] MEDS: TAMSULOSIN 0.4 MG CAP PO ×2 (09:57→20:17)
[2017-08-19] MEDS: ALLOPURINOL 300 MG TAB PO (09:57)
[2017-08-19] MEDS: SENOKOT S TAB PO ×2 (09:57→20:16)
[2017-08-19] MEDS: GABAPENTIN 300 MG CAP PO ×3 (09:57→20:17)
[2017-08-19] MEDS ORDERED: SLF 3 ML SYR IV (11:30)
[2017-08-19] MEDS: ERTAPENEM SODIUM 1 GM in NS MINI-BAG PLUS 50 ML IV (12:41)
[2017-08-19] MEDS: SLF 3 ML SYR IV ×2 (14:13→20:18)
[2017-08-19] MEDS: ATORVASTATIN 20 MG TAB PO (20:16)
[2017-08-19] MEDS: PANTOPRAZOLE 40MG INJ (PROTONIX) (C9113) IV (20:16)
[2017-08-20] MEDS: IPRATROPIUM 0.5MG/ALBUTEROL 2.5MG INH SOL UD 3ML (DUONEB)(J7620) NEB ×4 (00:37→20:01)
[2017-08-20] MEDS: MORPHINE 15 MG SA TAB PO ×3 (05:03→21:34)
[2017-08-20] MEDS: SLF 3 ML SYR IV ×3 (05:53→21:35)
[2017-08-20] MEDS: ACYCLOVIR 200 MG CAPSULE PO ×3 (09:09→21:33)
[2017-08-20] MEDS: ASPIRIN 81 MG ENTERIC TAB PO (09:10)
[2017-08-20] MEDS: METOPROLOL TART 25 MG TABLET PO ×2 (09:10→21:00)
[2017-08-20] MEDS: ESCITALOPRAM OXALATE 10 MG TAB (LEXAPRO) PO (09:10)
[2017-08-20] MEDS: BACLOFEN 10 MG TAB PO ×2 (09:10→21:34)
[2017-08-20] MEDS: GABAPENTIN 300 MG CAP PO ×3 (09:10→21:34)
[2017-08-20] MEDS: ALLOPURINOL 300 MG TAB PO (09:10)
[2017-08-20] MEDS: TAMSULOSIN 0.4 MG CAP PO ×2 (09:10→21:33)
[2017-08-20] MEDS: SENOKOT S TAB PO ×2 (09:11→21:33)
[2017-08-20] MEDS: DULoxetine 30 MG CAP (CYMBALTA) PO (09:11)
[2017-08-20] MEDS: FINASTERIDE 5 MG TAB PO (09:11)
[2017-08-20] MEDS: ERTAPENEM SODIUM 1 GM in NS MINI-BAG PLUS 50 ML IV (11:48)
[2017-08-20] MEDS: FOSFOMYCIN TROMETHAMINE 3 GM POWDER PACKET (MONUROL) PO (15:43)
[2017-08-20 15:57] LABS: HEMATOCRIT 38.5 % (42.0-52.0); HEMOGLOBIN 12.9 g/dl (13.5-17.5); MEAN CORPUSCULAR HEMOGLOBIN 31.5 pg (27.0-33.0); MEAN CORPUSCULAR HGB CONC 33.5 g/dl (32.0-36.5); MEAN CORPUSCULAR VOLUME 93.9 fl (80.0-96.0); PLATELET COUNT, AUTOMATED 280 10^3/uL (150-450); RED CELL DISTRIBUTION WIDTH 15.5 % (11.5-14.5); WHITE BLOOD COUNT 7.1 10^3/uL (4.0-10.0)
[2017-08-20 16:26] LABS: ANION GAP 4 MEQ/L (8-16); BLOOD UREA NITROGEN 22 MG/DL (7-18); C REACTIVE PROTEIN QUANTITATIV 3.21 MG/DL (0.00-0.30); CARBON DIOXIDE LEVEL 30 MEQ/L (21-32); CHLORIDE LEVEL 109 MEQ/L (98-107); GLOMERULAR FILTRATION RATE > 60.0 (>42); GLUCOSE, FASTING 100 MG/DL (70-100); POTASSIUM SERUM 3.9 MEQ/L (3.5-5.1); SODIUM LEVEL 143 MEQ/L (136-145)
[2017-08-20] MEDS: PANTOPRAZOLE 40MG INJ (PROTONIX) (C9113) IV (20:04)
[2017-08-20] MEDS: ATORVASTATIN 20 MG TAB PO (21:34)
[2017-08-21] MEDS: IPRATROPIUM 0.5MG/ALBUTEROL 2.5MG INH SOL UD 3ML (DUONEB)(J7620) NEB ×4 (01:50→20:32)
[2017-08-21] MEDS: SLF 3 ML SYR IV ×3 (05:08→22:22)
[2017-08-21] MEDS: MORPHINE 15 MG SA TAB PO ×3 (05:08→22:21)
[2017-08-21 05:59] LABS: HEMATOCRIT 40.7 % (42.0-52.0); HEMOGLOBIN 13.3 g/dl (13.5-17.5); MEAN CORPUSCULAR HEMOGLOBIN 30.8 pg (27.0-33.0); MEAN CORPUSCULAR HGB CONC 32.7 g/dl (32.0-36.5); MEAN CORPUSCULAR VOLUME 94.2 fl (80.0-96.0); PLATELET COUNT, AUTOMATED 283 10^3/uL (150-450); RED BLOOD COUNT 4.32 10^6/uL (4.30-6.10); RED CELL DISTRIBUTION WIDTH 15.3 % (11.5-14.5); WHITE BLOOD COUNT 9.1 10^3/uL (4.0-10.0)
[2017-08-21 06:13] LABS: ANION GAP 6 MEQ/L (8-16); BLOOD UREA NITROGEN 21 MG/DL (7-18); CALCIUM LEVEL 8.4 MG/DL (8.8-10.2); CARBON DIOXIDE LEVEL 30 MEQ/L (21-32); CHLORIDE LEVEL 108 MEQ/L (98-107); CREATININE FOR GFR 1.11 MG/DL (0.70-1.30); GLOMERULAR FILTRATION RATE > 60.0 (>42); GLUCOSE, FASTING 91 MG/DL (70-100); POTASSIUM SERUM 4.1 MEQ/L (3.5-5.1); SODIUM LEVEL 144 MEQ/L (136-145)
[2017-08-21] MEDS: ASPIRIN 81 MG ENTERIC TAB PO (08:35)
[2017-08-21] MEDS: SENOKOT S TAB PO ×2 (08:35→22:20)
[2017-08-21] MEDS: ACYCLOVIR 200 MG CAPSULE PO ×3 (08:35→22:21)
[2017-08-21] MEDS: TAMSULOSIN 0.4 MG CAP PO ×2 (08:36→22:19)
[2017-08-21] MEDS: FINASTERIDE 5 MG TAB PO (08:36)
[2017-08-21] MEDS: ALLOPURINOL 300 MG TAB PO (08:36)
[2017-08-21] MEDS: GABAPENTIN 300 MG CAP PO ×3 (08:36→22:20)
[2017-08-21] MEDS: METOPROLOL TART 25 MG TABLET PO (08:37)
[2017-08-21] MEDS: BACLOFEN 10 MG TAB PO ×2 (08:37→22:20)
[2017-08-21] MEDS: ESCITALOPRAM OXALATE 10 MG TAB (LEXAPRO) PO (08:37)
[2017-08-21] MEDS: DULoxetine 30 MG CAP (CYMBALTA) PO (08:37)
[2017-08-21] MEDS ORDERED: PANTOPRAZOLE 40MG TAB (PROTONIX) PO (16:15)
[2017-08-21] MEDS: METOPROLOL TART 12.5 MG PER 1/2 TAB PO (21:00)
[2017-08-21] MEDS: ATORVASTATIN 20 MG TAB PO (22:20)
[2017-08-22] MEDS: IPRATROPIUM 0.5MG/ALBUTEROL 2.5MG INH SOL UD 3ML (DUONEB)(J7620) NEB ×3 (01:44→13:40)
[2017-08-22] MEDS: ACETAMINOPHEN TAB 650MG DOSE (2X325MG) PO (02:02)
[2017-08-22 06:08] LABS: HEMATOCRIT 37.4 % (42.0-52.0); HEMOGLOBIN 12.5 g/dl (13.5-17.5); MEAN CORPUSCULAR HEMOGLOBIN 31.3 pg (27.0-33.0); MEAN CORPUSCULAR HGB CONC 33.4 g/dl (32.0-36.5); MEAN CORPUSCULAR VOLUME 93.5 fl (80.0-96.0); PLATELET COUNT, AUTOMATED 310 10^3/uL (150-450); RED CELL DISTRIBUTION WIDTH 15.2 % (11.5-14.5); WHITE BLOOD COUNT 7.9 10^3/uL (4.0-10.0)
[2017-08-22] MEDS: MORPHINE 15 MG SA TAB PO ×2 (06:11→14:14)
[2017-08-22] MEDS: SLF 3 ML SYR IV ×2 (06:12→14:00)
[2017-08-22 06:41] LABS: ANION GAP 8 MEQ/L (8-16); BLOOD UREA NITROGEN 22 MG/DL (7-18); CALCIUM LEVEL 8.6 MG/DL (8.8-10.2); CARBON DIOXIDE LEVEL 27 MEQ/L (21-32); CHLORIDE LEVEL 108 MEQ/L (98-107); CREATININE FOR GFR 0.95 MG/DL (0.70-1.30); GLOMERULAR FILTRATION RATE > 60.0 (>42); GLUCOSE, FASTING 89 MG/DL (70-100); POTASSIUM SERUM 3.6 MEQ/L (3.5-5.1); SODIUM LEVEL 143 MEQ/L (136-145)
[2017-08-22] MEDS: METOPROLOL TART 12.5 MG PER 1/2 TAB PO (08:18)
[2017-08-22] MEDS: ESCITALOPRAM OXALATE 10 MG TAB (LEXAPRO) PO (09:07)
[2017-08-22] MEDS: ACYCLOVIR 200 MG CAPSULE PO (09:07)
[2017-08-22] MEDS: TAMSULOSIN 0.4 MG CAP PO (09:07)
[2017-08-22] MEDS: ALLOPURINOL 300 MG TAB PO (09:07)
[2017-08-22] MEDS: DULoxetine 30 MG CAP (CYMBALTA) PO (09:07)
[2017-08-22] MEDS: GABAPENTIN 300 MG CAP PO (09:08)
[2017-08-22] MEDS: BACLOFEN 10 MG TAB PO (09:08)
[2017-08-22] MEDS: SENOKOT S TAB PO (09:08)
[2017-08-22] MEDS: FOSFOMYCIN TROMETHAMINE 3 GM POWDER PACKET (MONUROL) PO (09:08)
[2017-08-22] MEDS: ASPIRIN 81 MG ENTERIC TAB PO (09:08)
[2017-08-22] MEDS: FINASTERIDE 5 MG TAB PO (09:08)
== END 2017-08-22 14:56 | disposition home health service (06) | DRG 871 ==
LOC: M PCU 08-14 14:11 → M ED 12:25 → M ED INP 17:53 → M ICU 18:53
DX: A41.51 Sepsis due to Escherichia coli [E. coli] (principal); J96.21 Acute and chronic respiratory failure with hypoxia; I21.9 Acute myocardial infarction, unspecified; R65.21 Severe sepsis with septic shock; N17.9 Acute kidney failure, unspecified; K81.0 Acute cholecystitis; E87.2 Acidosis; N39.0 Urinary tract infection, site not specified; E87.1 Hypo-osmolality and hyponatremia; N40.0 Benign prostatic hyperplasia without lower urinary tract symptoms; J44.9 Chronic obstructive pulmonary disease, unspecified; M10.9 Gout, unspecified; Z79.899 Other long term (current) drug therapy; Z79.82 Long term (current) use of aspirin; Z87.891 Personal history of nicotine dependence; M54.5 Low back pain; I25.10 Atherosclerotic heart disease of native coronary artery without angina pectoris; Z99.81 Dependence on supplemental oxygen; E78.5 Hyperlipidemia, unspecified; Z88.0 Allergy status to penicillin

== ENCOUNTER 2017-09-17 15:24 | Inpatient (IN) | payer MEDICARE ==
[2017-09-17] MEDS: NS 1,000 ML IV ×3 (15:37→21:57)
[2017-09-17 16:33] LABS: BASO # 0.1 10^3/uL (0.0-0.2); BASO % 0.7 % (0.0-1.0); EOS # 0.2 10^3/uL (0.0-0.50); HEMATOCRIT 39.1 % (42.0-52.0); HEMOGLOBIN 12.9 g/dl (13.5-17.5); IMMATURE GRANULOCYTE % 0.4 % (0-3.0); LYMPH % 13.3 % (24.0-44.0); MONO # 0.3 10^3/uL (0.0-0.8); MONO % 4.4 % (0.0-5.0); NEUTROPHILS # 5.9 10^3/uL (1.8-7.7); NEUTROPHILS % 79.2 % (36.0-66.0); PLATELET COUNT, AUTOMATED 158 10^3/uL (150-450); RED BLOOD COUNT 4.03 10^6/uL (4.30-6.10); RED CELL DISTRIBUTION WIDTH 15.9 % (11.5-14.5); WHITE BLOOD COUNT 7.4 10^3/uL (4.0-10.0)
[2017-09-17 16:43] LABS: KETONE, URINE AUTO RFX TRACE mg/dL (NEGATIVE); MUCUS, URINE RFX SMALL (NEGATIVE); RBC, URINE AUTO RFX 12 /HPF (0-3); SPECIFIC GRAVITY UR AUTO RFX 1.012 (1.002-1.035); SQUAM EPITHELIAL CELL UR AURFX 0 /HPF (0-6)
[2017-09-17 16:50] LABS: LEUKOCYTE ESTERASE UR AUTO RFX 3+ (NEGATIVE); NITRITE, URINE AUTO RFX POSITIVE (NEGATIVE); WBC, URINE AUTO RFX 42 /HPF (0-3)
[2017-09-17 16:52] LABS: ALBUMIN 3.2 GM/DL (3.2-5.2); ALBUMIN/GLOBULIN RATIO 1.14 (1.00-1.93); ALKALINE PHOSPHATASE 82 U/L (45-117); ALT/SGPT 18 U/L (12-78); ANION GAP 6 MEQ/L (8-16); AST/SGOT 14 U/L (7-37); BILIRUBIN,DIRECT 0.2 MG/DL (0.0-0.2); BILIRUBIN,TOTAL 0.5 MG/DL (0.2-1.0); BLOOD UREA NITROGEN 15 MG/DL (7-18); CALCIUM LEVEL 8.8 MG/DL (8.8-10.2); CARBON DIOXIDE LEVEL 32 MEQ/L (21-32); CHLORIDE LEVEL 106 MEQ/L (98-107); CREATININE FOR GFR 1.15 MG/DL (0.70-1.30); GLOMERULAR FILTRATION RATE > 60.0 (>42); GLUCOSE, FASTING 86 MG/DL (70-100); LIPASE 50 U/L (73-393); POTASSIUM SERUM 4.6 MEQ/L (3.5-5.1); SODIUM LEVEL 144 MEQ/L (136-145)
[2017-09-17] MEDS: MORPHINE 30 MG SA TAB PO ×2 (16:52→22:11)
[2017-09-17 16:58] LABS: INR 1.04; PROTHROMBIN TIME 13.7 SECONDS (12.4-14.5)
[2017-09-17] MEDS ORDERED: ACETAMINOPHEN 500 MG TAB PO (19:15)
[2017-09-17] MEDS ORDERED: ONDANSETRON 4MG/2ML VIAL (J2405) IV (19:15)
[2017-09-17] MEDS: MORPHINE 10 MG/ML 1ML VIAL (J2270) IV ×2 (20:13→20:31)
[2017-09-17] MEDS ORDERED: MORPHINE 30 MG TAB **MSIR PO (20:45)
[2017-09-17] MEDS ORDERED: NS 1,000 ML IV (20:47)
[2017-09-17] MEDS: PIPERACILLIN/TAZOBACTAM SOD 4.5 GM in D5W MINI-BAG PLUS 50 ML IV (20:49)
[2017-09-17 20:57] LABS: ABG BASE EXCESS -2.5 (-2.0-2.0); ABG HCO3 22.5 MEQ/L (22.0-26.0); ABG O2 SATURATION 95.1 % (95.0-99.0); ABG PARTIAL PRESSURE CO2 39.7 mmHg (35.0-45.0); ABG PARTIAL PRESSURE O2 79.4 mmHg (75.0-100.0); ABG STANDARD HCO3 22.4 MEQ/L (22.0-26.0); ABG TOTAL CO2 23.8 MEQ/L (23.0-31.0); ABG pH (ARTERIAL) 7.372 UNITS (7.350-7.450)
[2017-09-17] MEDS ORDERED: EPIDURAL/PCA KEYS XX (21:00)
[2017-09-17] MEDS ORDERED: diphenhydrAMINE INJ 50MG/ML VIAL (J1200) IV (21:00)
[2017-09-17] MEDS ORDERED: NALBUPHINE HCL 10 MG/ML AMP (J2300) IV (21:00)
[2017-09-17] MEDS ORDERED: NALOXONE INJ 0.4 MG/1 ML VIAL (J2310) IV (21:00)
[2017-09-17] MEDS: BACLOFEN 10 MG TAB PO (21:25)
[2017-09-17] MEDS: TAMSULOSIN 0.4 MG CAP PO (21:52)
[2017-09-17] MEDS: DOCUSATE SODIUM 100 MG CAP PO (21:52)
[2017-09-17] MEDS: SENOKOT S TAB PO (21:52)
[2017-09-17] MEDS: GABAPENTIN 300 MG CAP PO (21:52)
[2017-09-17] MEDS: ASPIRIN 81 MG ENTERIC TAB PO (21:53)
[2017-09-18] MEDS: MORPHINE 1MG/ML IN 0.9% NACL 100ML IV BAG IV (00:28)
[2017-09-18] MEDS: PIPERACILLIN/TAZOBACTAM SOD 4.5 GM in D5W MINI-BAG PLUS 50 ML IV ×3 (04:23→20:44)
[2017-09-18 05:22] LABS: HEMATOCRIT 38.3 % (42.0-52.0); HEMOGLOBIN 12.5 g/dl (13.5-17.5); MEAN CORPUSCULAR HEMOGLOBIN 31.8 pg (27.0-33.0); MEAN CORPUSCULAR HGB CONC 32.6 g/dl (32.0-36.5); MEAN CORPUSCULAR VOLUME 97.5 fl (80.0-96.0); PLATELET COUNT, AUTOMATED 138 10^3/uL (150-450); RED BLOOD COUNT 3.93 10^6/uL (4.30-6.10); RED CELL DISTRIBUTION WIDTH 15.8 % (11.5-14.5); WHITE BLOOD COUNT 9.6 10^3/uL (4.0-10.0)
[2017-09-18 05:35] LABS: ALBUMIN 2.8 GM/DL (3.2-5.2); ALKALINE PHOSPHATASE 76 U/L (45-117); ALT/SGPT 15 U/L (12-78); ANION GAP 6 MEQ/L (8-16); AST/SGOT 15 U/L (7-37); BLOOD UREA NITROGEN 12 MG/DL (7-18); CARBON DIOXIDE LEVEL 30 MEQ/L (21-32); CHLORIDE LEVEL 108 MEQ/L (98-107); CREATININE FOR GFR 1.07 MG/DL (0.70-1.30); GLOMERULAR FILTRATION RATE > 60.0 (>42); GLUCOSE, FASTING 106 MG/DL (70-100); MAGNESIUM LEVEL 2.1 MG/DL (1.8-2.4); POTASSIUM SERUM 4.5 MEQ/L (3.5-5.1); SODIUM LEVEL 144 MEQ/L (136-145); TOTAL PROTEIN 5.9 GM/DL (6.4-8.2)
[2017-09-18] MEDS ORDERED: ENOXAPARIN 40 MG/0.4 ML SYRINGE (J1650) SC (09:00)
[2017-09-18] MEDS ORDERED: METOPROLOL TART 12.5 MG PER 1/2 TAB PO (09:00)
[2017-09-18] MEDS: ATORVASTATIN 20 MG TAB PO (09:51)
[2017-09-18] MEDS: GABAPENTIN 300 MG CAP PO ×3 (09:52→20:40)
[2017-09-18] MEDS: TAMSULOSIN 0.4 MG CAP PO ×2 (09:52→20:40)
[2017-09-18] MEDS: METOPROLOL TART 12.5 MG PER 1/2 TAB PO ×2 (09:52→20:42)
[2017-09-18] MEDS: DOCUSATE SODIUM 100 MG CAP PO ×2 (09:52→20:40)
[2017-09-18] MEDS: BACLOFEN 10 MG TAB PO ×2 (09:52→20:40)
[2017-09-18] MEDS: SENOKOT S TAB PO ×2 (09:53→20:40)
[2017-09-18] MEDS: DULoxetine 30 MG CAP (CYMBALTA) PO (09:53)
[2017-09-18] MEDS: ALLOPURINOL 300 MG TAB PO (09:56)
[2017-09-18] MEDS: MORPHINE 30 MG SA TAB PO ×3 (09:56→22:00)
[2017-09-18] MEDS ORDERED: PROPOFOL 200 MG/20 ML VIAL As Ordered ×3 (10:33→10:49)
[2017-09-18] MEDS ORDERED: BUPIVACAINE/DEXTROSE 0.75% 2 ML AMP As Ordered (10:33)
[2017-09-18] MEDS ORDERED: fentaNYL 100 MCG/2 ML INJECTION (J3010) As Ordered (10:37)
[2017-09-18] MEDS ORDERED: MIDAZOLAM INJ 2 MG/2 ML VIAL (J2250) As Ordered (10:38)
[2017-09-18] MEDS: VANCOMYCIN HCL 1,000 MG, VIAL MATE ADAPTER 1 EACH in D5W 250 ML IV (10:45)
[2017-09-18] MEDS ORDERED: ROCURONIUM BROMIDE 50 MG/5 ML VIAL As Ordered ×2 (10:49→11:55)
[2017-09-18] MEDS ORDERED: LIDOCAINE 2% INJ 100 MG/5 ML SDV (FOR ANES.) As Ordered (10:49)
[2017-09-18] MEDS ORDERED: PHENYLephrine HCL 500 MCG/5 ML (100MCG/ML) SYRINGE (J2370) As Ordered (11:23)
[2017-09-18] MEDS: VANCOMYCIN 1000 MG/20 ML VIAL (J3370) As Ordered (11:34)
[2017-09-18] MEDS: CLINDAMYCIN INJ 900MG/6ML VIAL As Ordered (11:40)
[2017-09-18] MEDS: BUPIVACAINE/EPIN 0.25% 30 ML VIAL As Ordered (11:40)
[2017-09-18] MEDS ORDERED: SUGAMMADEX SODIUM 500 MG/5 ML VIAL (BRIDION) As Ordered (12:08)
[2017-09-18] MEDS ORDERED: dexameTHASONE 4 MG/ML 1ML VIAL (J1100) As Ordered ×2 (12:08)
[2017-09-18] MEDS ORDERED: ONDANSETRON 4MG/2ML VIAL (J2405) As Ordered (12:08)
[2017-09-18] MEDS ORDERED: ONDANSETRON 4MG/2ML VIAL (J2405) IV ×2 (12:45→13:00)
[2017-09-18] MEDS ORDERED: fentaNYL 100 MCG/2 ML INJECTION (J3010) IV (12:45)
[2017-09-18] MEDS ORDERED: PERCOCET 5MG/325MG TAB PO (13:00)
[2017-09-18] MEDS ORDERED: MORPHINE 4 MG/ML 1ML VIAL/SYRINGE (J2270) IV (13:00)
[2017-09-18] MEDS: LR 1,000 ML IV ×3 (14:06→18:12)
[2017-09-18] MEDS: PERCOCET 5MG/325MG TAB PO (16:43)
[2017-09-18] MEDS: NS 0.45% 500 ML IV (18:12)
[2017-09-18] MEDS: RIVAROXABAN 10 MG TAB (XARELTO) PO (18:12)
[2017-09-18] MEDS: ASPIRIN 81 MG ENTERIC TAB PO (20:40)
[2017-09-19 05:19] LABS: HEMATOCRIT 32.4 % (42.0-52.0); HEMOGLOBIN 10.6 g/dl (13.5-17.5); MEAN CORPUSCULAR HEMOGLOBIN 31.4 pg (27.0-33.0); MEAN CORPUSCULAR HGB CONC 32.7 g/dl (32.0-36.5); MEAN CORPUSCULAR VOLUME 95.9 fl (80.0-96.0); PLATELET COUNT, AUTOMATED 120 10^3/uL (150-450); RED BLOOD COUNT 3.38 10^6/uL (4.30-6.10); RED CELL DISTRIBUTION WIDTH 15.4 % (11.5-14.5); WHITE BLOOD COUNT 11.4 10^3/uL (4.0-10.0)
[2017-09-19] MEDS: PIPERACILLIN/TAZOBACTAM SOD 4.5 GM in D5W MINI-BAG PLUS 50 ML IV ×3 (05:26→20:19)
[2017-09-19 05:39] LABS: ALBUMIN 2.4 GM/DL (3.2-5.2); ALKALINE PHOSPHATASE 61 U/L (45-117); ALT/SGPT 13 U/L (12-78); ANION GAP 6 MEQ/L (8-16); AST/SGOT 10 U/L (7-37); BILIRUBIN,TOTAL 0.7 MG/DL (0.2-1.0); BLOOD UREA NITROGEN 17 MG/DL (7-18); CALCIUM LEVEL 7.7 MG/DL (8.8-10.2); CARBON DIOXIDE LEVEL 29 MEQ/L (21-32); CHLORIDE LEVEL 106 MEQ/L (98-107); CREATININE FOR GFR 0.95 MG/DL (0.70-1.30); GLOMERULAR FILTRATION RATE > 60.0 (>42); GLUCOSE, FASTING 144 MG/DL (70-100); POTASSIUM SERUM 4.2 MEQ/L (3.5-5.1); SODIUM LEVEL 141 MEQ/L (136-145); TOTAL PROTEIN 5.4 GM/DL (6.4-8.2)
[2017-09-19] MEDS: LR 1,000 ML IV (06:15)
[2017-09-19] MEDS: MORPHINE 30 MG SA TAB PO ×3 (06:44→21:19)
[2017-09-19] MEDS: MOM 30ML SUSPENSION UDC PO (08:49)
[2017-09-19] MEDS: MIRALAX *UNIT DOSE* 17GM PACKET PO (08:49)
[2017-09-19] MEDS: VANCOMYCIN HCL 1,000 MG, VIAL MATE ADAPTER 1 EACH in D5W 250 ML IV (08:49)
[2017-09-19] MEDS: SENOKOT S TAB PO ×2 (08:49→20:21)
[2017-09-19] MEDS: METOPROLOL TART 12.5 MG PER 1/2 TAB PO ×3 (08:50→20:30)
[2017-09-19] MEDS: GABAPENTIN 300 MG CAP PO ×3 (08:50→20:21)
[2017-09-19] MEDS: ALLOPURINOL 300 MG TAB PO (08:51)
[2017-09-19] MEDS: DULoxetine 30 MG CAP (CYMBALTA) PO (08:52)
[2017-09-19] MEDS: BACLOFEN 10 MG TAB PO ×2 (08:52→20:23)
[2017-09-19] MEDS: DOCUSATE SODIUM 100 MG CAP PO ×2 (08:52→20:21)
[2017-09-19] MEDS: TAMSULOSIN 0.4 MG CAP PO ×2 (08:52→20:21)
[2017-09-19] MEDS ORDERED: ALBUTEROL SULFATE 2.5 MG/0.5 ML INH NEB SOLN NEB (15:45)
[2017-09-19] MEDS: RIVAROXABAN 10 MG TAB (XARELTO) PO (17:19)
[2017-09-19] MEDS: ATORVASTATIN 20 MG TAB PO (20:22)
[2017-09-19] MEDS: ASPIRIN 81 MG ENTERIC TAB PO (20:23)
[2017-09-20] MEDS: PIPERACILLIN/TAZOBACTAM SOD 4.5 GM in D5W MINI-BAG PLUS 50 ML IV ×3 (05:01→21:34)
[2017-09-20] MEDS: MORPHINE 30 MG SA TAB PO ×3 (05:01→22:00)
[2017-09-20 05:12] LABS: HEMATOCRIT 28.4 % (42.0-52.0); HEMOGLOBIN 9.3 g/dl (13.5-17.5); MEAN CORPUSCULAR HEMOGLOBIN 31.6 pg (27.0-33.0); MEAN CORPUSCULAR HGB CONC 32.7 g/dl (32.0-36.5); MEAN CORPUSCULAR VOLUME 96.6 fl (80.0-96.0); PLATELET COUNT, AUTOMATED 113 10^3/uL (150-450); RED BLOOD COUNT 2.94 10^6/uL (4.30-6.10); RED CELL DISTRIBUTION WIDTH 15.6 % (11.5-14.5); WHITE BLOOD COUNT 9.6 10^3/uL (4.0-10.0)
[2017-09-20 05:33] LABS: ALBUMIN 2.3 GM/DL (3.2-5.2); ALBUMIN/GLOBULIN RATIO 0.88 (1.00-1.93); ALKALINE PHOSPHATASE 49 U/L (45-117); ALT/SGPT 12 U/L (12-78); ANION GAP 6 MEQ/L (8-16); AST/SGOT 10 U/L (7-37); BILIRUBIN,TOTAL 0.5 MG/DL (0.2-1.0); BLOOD UREA NITROGEN 17 MG/DL (7-18); CALCIUM LEVEL 7.9 MG/DL (8.8-10.2); CARBON DIOXIDE LEVEL 31 MEQ/L (21-32); CHLORIDE LEVEL 107 MEQ/L (98-107); CREATININE FOR GFR 0.85 MG/DL (0.70-1.30); GLOMERULAR FILTRATION RATE > 60.0 (>42); GLUCOSE, FASTING 91 MG/DL (70-100); MAGNESIUM LEVEL 2.2 MG/DL (1.8-2.4); POTASSIUM SERUM 4.1 MEQ/L (3.5-5.1); SODIUM LEVEL 144 MEQ/L (136-145); TOTAL PROTEIN 4.9 GM/DL (6.4-8.2)
[2017-09-20] MEDS: SODIUM CHLORIDE 0.9% 1000 ML IV (06:58)
[2017-09-20] MEDS: MIRALAX *UNIT DOSE* 17GM PACKET PO (08:14)
[2017-09-20] MEDS: MOM 30ML SUSPENSION UDC PO (08:14)
[2017-09-20] MEDS: ALLOPURINOL 300 MG TAB PO (08:15)
[2017-09-20] MEDS: DOCUSATE SODIUM 100 MG CAP PO ×2 (08:15→22:11)
[2017-09-20] MEDS: SENOKOT S TAB PO ×2 (08:15→22:11)
[2017-09-20] MEDS: DULoxetine 30 MG CAP (CYMBALTA) PO (08:15)
[2017-09-20] MEDS: BACLOFEN 10 MG TAB PO ×2 (08:15→22:11)
[2017-09-20] MEDS: GABAPENTIN 300 MG CAP PO ×3 (08:15→22:12)
[2017-09-20] MEDS: TAMSULOSIN 0.4 MG CAP PO ×2 (08:15→22:12)
[2017-09-20] MEDS: METOPROLOL TART 12.5 MG PER 1/2 TAB PO ×2 (08:19→21:00)
[2017-09-20] MEDS: NS 500 ML IV (08:45)
[2017-09-20] MEDS: LR 1,000 ML IV (16:59)
[2017-09-20] MEDS: RIVAROXABAN 10 MG TAB (XARELTO) PO (16:59)
[2017-09-20 18:17] LABS: ABG BASE EXCESS 7.5 (-2.0-2.0); ABG HCO3 33.7 MEQ/L (22.0-26.0); ABG O2 SATURATION 90.1 % (95.0-99.0); ABG PARTIAL PRESSURE CO2 56.1 mmHg (35.0-45.0); ABG PARTIAL PRESSURE O2 58.4 mmHg (75.0-100.0); ABG STANDARD HCO3 31.2 MEQ/L (22.0-26.0); ABG TOTAL CO2 35.4 MEQ/L (23.0-31.0); ABG pH (ARTERIAL) 7.396 UNITS (7.350-7.450)
[2017-09-20] MEDS: ATORVASTATIN 20 MG TAB PO (22:12)
[2017-09-20] MEDS: ASPIRIN 81 MG ENTERIC TAB PO (22:12)
[2017-09-21 04:11] LABS: HEMATOCRIT 27.8 % (42.0-52.0); HEMOGLOBIN 8.9 g/dl (13.5-17.5); MEAN CORPUSCULAR HEMOGLOBIN 31.4 pg (27.0-33.0); MEAN CORPUSCULAR VOLUME 98.2 fl (80.0-96.0); PLATELET COUNT, AUTOMATED 108 10^3/uL (150-450); RED BLOOD COUNT 2.83 10^6/uL (4.30-6.10); RED CELL DISTRIBUTION WIDTH 15.7 % (11.5-14.5); WHITE BLOOD COUNT 7.2 10^3/uL (4.0-10.0)
[2017-09-21 04:31] LABS: ALBUMIN 2.3 GM/DL (3.2-5.2); ALBUMIN/GLOBULIN RATIO 0.79 (1.00-1.93); ALKALINE PHOSPHATASE 50 U/L (45-117); ALT/SGPT 12 U/L (12-78); ANION GAP 4 MEQ/L (8-16); AST/SGOT 11 U/L (7-37); BILIRUBIN,TOTAL 0.6 MG/DL (0.2-1.0); BLOOD UREA NITROGEN 18 MG/DL (7-18); CALCIUM LEVEL 7.8 MG/DL (8.8-10.2); CARBON DIOXIDE LEVEL 35 MEQ/L (21-32); CHLORIDE LEVEL 104 MEQ/L (98-107); CREATININE FOR GFR 1.01 MG/DL (0.70-1.30); GLOMERULAR FILTRATION RATE > 60.0 (>42); GLUCOSE, FASTING 88 MG/DL (70-100); MAGNESIUM LEVEL 2.1 MG/DL (1.8-2.4); POTASSIUM SERUM 4.3 MEQ/L (3.5-5.1); SODIUM LEVEL 143 MEQ/L (136-145); TOTAL PROTEIN 5.2 GM/DL (6.4-8.2)
[2017-09-21] MEDS: PIPERACILLIN/TAZOBACTAM SOD 4.5 GM in D5W MINI-BAG PLUS 50 ML IV ×3 (05:48→20:54)
[2017-09-21] MEDS: MORPHINE 30 MG SA TAB PO ×3 (06:24→21:17)
[2017-09-21] MEDS: LR 1,000 ML IV (08:55)
[2017-09-21] MEDS: DOCUSATE SODIUM 100 MG CAP PO ×2 (08:55→20:26)
[2017-09-21] MEDS: TAMSULOSIN 0.4 MG CAP PO ×2 (08:55→20:54)
[2017-09-21] MEDS: SENOKOT S TAB PO ×2 (08:55→20:27)
[2017-09-21] MEDS: ALLOPURINOL 300 MG TAB PO (08:56)
[2017-09-21] MEDS: GABAPENTIN 300 MG CAP PO ×3 (08:56→20:54)
[2017-09-21] MEDS: BACLOFEN 10 MG TAB PO ×2 (08:56→20:54)
[2017-09-21] MEDS: DULoxetine 30 MG CAP (CYMBALTA) PO (08:56)
[2017-09-21] MEDS: MOM 30ML SUSPENSION UDC PO (08:57)
[2017-09-21] MEDS: MIRALAX *UNIT DOSE* 17GM PACKET PO (08:57)
[2017-09-21] MEDS: METOPROLOL TART 12.5 MG PER 1/2 TAB PO ×2 (09:00→21:00)
[2017-09-21] MEDS: MIDODRINE 2.5 MG TAB PO ×2 (12:31→16:00)
[2017-09-21 16:26] LABS: ABG BASE EXCESS 6.8 (-2.0-2.0); ABG HCO3 31.5 MEQ/L (22.0-26.0); ABG PARTIAL PRESSURE CO2 45.9 mmHg (35.0-45.0); ABG PARTIAL PRESSURE O2 53.4 mmHg (75.0-100.0); ABG STANDARD HCO3 30.4 MEQ/L (22.0-26.0); ABG TOTAL CO2 32.9 MEQ/L (23.0-31.0); ABG pH (ARTERIAL) 7.454 UNITS (7.350-7.450)
[2017-09-21] MEDS: RIVAROXABAN 10 MG TAB (XARELTO) PO (18:13)
[2017-09-21] MEDS ORDERED: SLF 3 ML SYR IV (18:30)
[2017-09-21 19:13] LABS: NT-PRO BNP 2268 PG/ML (<125)
[2017-09-21] MEDS: ASPIRIN 81 MG ENTERIC TAB PO (20:54)
[2017-09-21] MEDS: ATORVASTATIN 20 MG TAB PO (20:54)
[2017-09-21] MEDS: SLF 3 ML SYR IV (21:18)
[2017-09-22 04:59] LABS: HEMATOCRIT 27.9 % (42.0-52.0); HEMOGLOBIN 9.2 g/dl (13.5-17.5); MEAN CORPUSCULAR HEMOGLOBIN 31.7 pg (27.0-33.0); MEAN CORPUSCULAR VOLUME 96.2 fl (80.0-96.0); PLATELET COUNT, AUTOMATED 139 10^3/uL (150-450); RED CELL DISTRIBUTION WIDTH 15.7 % (11.5-14.5)
[2017-09-22 05:16] LABS: ALBUMIN 2.3 GM/DL (3.2-5.2); ALBUMIN/GLOBULIN RATIO 0.79 (1.00-1.93); ALKALINE PHOSPHATASE 47 U/L (45-117); ALT/SGPT 12 U/L (12-78); ANION GAP 3 MEQ/L (8-16); AST/SGOT 11 U/L (7-37); BILIRUBIN,TOTAL 0.9 MG/DL (0.2-1.0); BLOOD UREA NITROGEN 15 MG/DL (7-18); CARBON DIOXIDE LEVEL 34 MEQ/L (21-32); CHLORIDE LEVEL 106 MEQ/L (98-107); CREATININE FOR GFR 0.88 MG/DL (0.70-1.30); GLOMERULAR FILTRATION RATE > 60.0 (>42); GLUCOSE, FASTING 84 MG/DL (70-100); POTASSIUM SERUM 3.9 MEQ/L (3.5-5.1); SODIUM LEVEL 143 MEQ/L (136-145); TOTAL PROTEIN 5.2 GM/DL (6.4-8.2)
[2017-09-22] MEDS: PIPERACILLIN/TAZOBACTAM SOD 4.5 GM in D5W MINI-BAG PLUS 50 ML IV ×3 (05:55→21:14)
[2017-09-22] MEDS: SLF 3 ML SYR IV ×3 (05:55→21:18)
[2017-09-22] MEDS: MORPHINE 30 MG SA TAB PO ×3 (05:58→21:16)
[2017-09-22] MEDS: MIDODRINE 2.5 MG TAB PO ×2 (07:30→16:45)
[2017-09-22] MEDS: DOCUSATE SODIUM 100 MG CAP PO ×2 (09:00→21:00)
[2017-09-22] MEDS: GABAPENTIN 300 MG CAP PO ×3 (09:41→21:17)
[2017-09-22] MEDS: BACLOFEN 10 MG TAB PO ×2 (09:41→21:14)
[2017-09-22] MEDS: TAMSULOSIN 0.4 MG CAP PO ×2 (09:42→21:26)
[2017-09-22] MEDS: ALLOPURINOL 300 MG TAB PO (09:43)
[2017-09-22] MEDS: DULoxetine 30 MG CAP (CYMBALTA) PO (09:43)
[2017-09-22] MEDS: METOPROLOL TART 12.5 MG PER 1/2 TAB PO ×2 (10:50→21:19)
[2017-09-22 15:51] LABS: IMMEDIATE SPIN CROSSMATCH 1 1
[2017-09-22] MEDS: RIVAROXABAN 10 MG TAB (XARELTO) PO (18:03)
[2017-09-22] MEDS: ATORVASTATIN 20 MG TAB PO (21:15)
[2017-09-22] MEDS: ASPIRIN 81 MG ENTERIC TAB PO (21:16)
[2017-09-23] MEDS: PIPERACILLIN/TAZOBACTAM SOD 4.5 GM in D5W MINI-BAG PLUS 50 ML IV ×3 (04:22→20:28)
[2017-09-23 04:29] LABS: HEMATOCRIT 29.5 % (42.0-52.0); HEMOGLOBIN 9.9 g/dl (13.5-17.5); MEAN CORPUSCULAR HEMOGLOBIN 31.5 pg (27.0-33.0); MEAN CORPUSCULAR HGB CONC 33.6 g/dl (32.0-36.5); MEAN CORPUSCULAR VOLUME 93.9 fl (80.0-96.0); PLATELET COUNT, AUTOMATED 160 10^3/uL (150-450); RED BLOOD COUNT 3.14 10^6/uL (4.30-6.10); RED CELL DISTRIBUTION WIDTH 16.3 % (11.5-14.5); WHITE BLOOD COUNT 7.4 10^3/uL (4.0-10.0)
[2017-09-23 05:09] LABS: ALBUMIN 2.2 GM/DL (3.2-5.2); ALBUMIN/GLOBULIN RATIO 0.73 (1.00-1.93); ALKALINE PHOSPHATASE 50 U/L (45-117); ALT/SGPT 12 U/L (12-78); ANION GAP 5 MEQ/L (8-16); AST/SGOT 12 U/L (7-37); BLOOD UREA NITROGEN 16 MG/DL (7-18); CALCIUM LEVEL 8.2 MG/DL (8.8-10.2); CARBON DIOXIDE LEVEL 32 MEQ/L (21-32); CHLORIDE LEVEL 107 MEQ/L (98-107); CREATININE FOR GFR 0.93 MG/DL (0.70-1.30); GLOMERULAR FILTRATION RATE > 60.0 (>42); GLUCOSE, FASTING 88 MG/DL (70-100); POTASSIUM SERUM 3.9 MEQ/L (3.5-5.1); SODIUM LEVEL 144 MEQ/L (136-145); TOTAL PROTEIN 5.2 GM/DL (6.4-8.2)
[2017-09-23 05:27] LABS: BILIRUBIN,TOTAL 1.5 MG/DL (0.2-1.0)
[2017-09-23] MEDS: MORPHINE 30 MG SA TAB PO ×3 (05:55→21:41)
[2017-09-23] MEDS: SLF 3 ML SYR IV ×3 (05:58→20:29)
[2017-09-23] MEDS: MIDODRINE 2.5 MG TAB PO ×2 (08:00→16:58)
[2017-09-23] MEDS: ALLOPURINOL 300 MG TAB PO (09:00)
[2017-09-23] MEDS: DOCUSATE SODIUM 100 MG CAP PO ×2 (09:00→20:28)
[2017-09-23] MEDS: METOPROLOL TART 12.5 MG PER 1/2 TAB PO ×2 (09:00→20:34)
[2017-09-23] MEDS: GABAPENTIN 300 MG CAP PO ×3 (09:00→20:27)
[2017-09-23] MEDS: BACLOFEN 10 MG TAB PO ×2 (09:00→20:27)
[2017-09-23] MEDS: TAMSULOSIN 0.4 MG CAP PO ×2 (09:00→20:27)
[2017-09-23] MEDS: DULoxetine 30 MG CAP (CYMBALTA) PO (09:00)
[2017-09-23 09:16] LABS: ABG BASE EXCESS 6.6 (-2.0-2.0); ABG HCO3 30.6 MEQ/L (22.0-26.0); ABG O2 SATURATION 87.8 % (95.0-99.0); ABG PARTIAL PRESSURE CO2 41.9 mmHg (35.0-45.0); ABG STANDARD HCO3 30.2 MEQ/L (22.0-26.0); ABG TOTAL CO2 31.9 MEQ/L (23.0-31.0); ABG pH (ARTERIAL) 7.482 UNITS (7.350-7.450)
[2017-09-23 09:19] LABS: ABG PARTIAL PRESSURE O2 49.8 mmHg (75.0-100.0)
[2017-09-23] MEDS: IPRATROPIUM 0.5MG/ALBUTEROL 2.5MG INH SOL UD 3ML (DUONEB)(J7620) NEB ×2 (14:06→19:48)
[2017-09-23] MEDS: RIVAROXABAN 10 MG TAB (XARELTO) PO (16:58)
[2017-09-23] MEDS: ASPIRIN 81 MG ENTERIC TAB PO (20:27)
[2017-09-23] MEDS: ATORVASTATIN 20 MG TAB PO (20:27)
[2017-09-24] MEDS: IPRATROPIUM 0.5MG/ALBUTEROL 2.5MG INH SOL UD 3ML (DUONEB)(J7620) NEB ×4 (00:30→19:39)
[2017-09-24 04:39] LABS: HEMATOCRIT 28.9 % (42.0-52.0); HEMOGLOBIN 9.5 g/dl (13.5-17.5); MEAN CORPUSCULAR HEMOGLOBIN 31.6 pg (27.0-33.0); MEAN CORPUSCULAR HGB CONC 32.9 g/dl (32.0-36.5); PLATELET COUNT, AUTOMATED 164 10^3/uL (150-450); RED BLOOD COUNT 3.01 10^6/uL (4.30-6.10); RED CELL DISTRIBUTION WIDTH 15.9 % (11.5-14.5)
[2017-09-24] MEDS: PIPERACILLIN/TAZOBACTAM SOD 4.5 GM in D5W MINI-BAG PLUS 50 ML IV (04:39)
[2017-09-24 05:02] LABS: ALBUMIN 2.3 GM/DL (3.2-5.2); ALBUMIN/GLOBULIN RATIO 0.72 (1.00-1.93); ALKALINE PHOSPHATASE 51 U/L (45-117); ALT/SGPT 13 U/L (12-78); ANION GAP 6 MEQ/L (8-16); AST/SGOT 14 U/L (7-37); BILIRUBIN,TOTAL 1.2 MG/DL (0.2-1.0); BLOOD UREA NITROGEN 17 MG/DL (7-18); CALCIUM LEVEL 8.3 MG/DL (8.8-10.2); CARBON DIOXIDE LEVEL 32 MEQ/L (21-32); CHLORIDE LEVEL 105 MEQ/L (98-107); CREATININE FOR GFR 1.02 MG/DL (0.70-1.30); GLOMERULAR FILTRATION RATE > 60.0 (>42); GLUCOSE, FASTING 91 MG/DL (70-100); MAGNESIUM LEVEL 2.1 MG/DL (1.8-2.4); POTASSIUM SERUM 3.9 MEQ/L (3.5-5.1); SODIUM LEVEL 143 MEQ/L (136-145); TOTAL PROTEIN 5.5 GM/DL (6.4-8.2)
[2017-09-24] MEDS: MORPHINE 30 MG SA TAB PO ×3 (05:57→20:47)
[2017-09-24] MEDS: SLF 3 ML SYR IV ×3 (05:58→22:00)
[2017-09-24] MEDS: DOCUSATE SODIUM 100 MG CAP PO ×2 (08:09→20:47)
[2017-09-24] MEDS: MIDODRINE 2.5 MG TAB PO ×2 (08:09→17:28)
[2017-09-24] MEDS: DULoxetine 30 MG CAP (CYMBALTA) PO (08:10)
[2017-09-24] MEDS: ALLOPURINOL 300 MG TAB PO (08:10)
[2017-09-24] MEDS: GABAPENTIN 300 MG CAP PO ×3 (08:10→20:48)
[2017-09-24] MEDS: BACLOFEN 10 MG TAB PO ×2 (08:10→20:47)
[2017-09-24] MEDS: TAMSULOSIN 0.4 MG CAP PO ×2 (08:11→20:48)
[2017-09-24] MEDS: METOPROLOL TART 12.5 MG PER 1/2 TAB PO ×2 (09:00→20:56)
[2017-09-24 10:04] LABS: ERYTHROCYTE SEDIMENTATION RATE 45 mm/hr (0-20)
[2017-09-24] MEDS: predniSONE 20 MG TAB PO (11:03)
[2017-09-24] MEDS: MEROPENEM INJ 1 GM in APPROPRIATE DILUENT 1 EA IV ×2 (11:04→17:28)
[2017-09-24] MEDS ORDERED: PERCOCET 5MG/325MG TAB PO ×2 (16:15)
[2017-09-24] MEDS: RIVAROXABAN 10 MG TAB (XARELTO) PO (17:28)
[2017-09-24] MEDS: ASPIRIN 81 MG ENTERIC TAB PO (20:47)
[2017-09-24] MEDS: predniSONE 10 MG TAB PO (20:48)
[2017-09-24] MEDS: ATORVASTATIN 20 MG TAB PO (20:48)
[2017-09-25] MEDS: IPRATROPIUM 0.5MG/ALBUTEROL 2.5MG INH SOL UD 3ML (DUONEB)(J7620) NEB ×4 (01:33→19:49)
[2017-09-25] MEDS: MEROPENEM INJ 1 GM in APPROPRIATE DILUENT 1 EA IV ×3 (02:22→17:40)
[2017-09-25] MEDS: MORPHINE 30 MG SA TAB PO ×3 (05:03→22:28)
[2017-09-25] MEDS: SLF 3 ML SYR IV ×3 (05:04→20:39)
[2017-09-25 07:18] LABS: BASO % 0.1 % (0.0-1.0); EOS % 0.1 % (0.0-3.0); HEMATOCRIT 29.8 % (42.0-52.0); HEMOGLOBIN 10.1 g/dl (13.5-17.5); IMMATURE GRANULOCYTE % 0.2 % (0-3.0); LYMPH # 0.6 10^3/uL (1.5-4.5); LYMPH % 7.7 % (24.0-44.0); MEAN CORPUSCULAR HEMOGLOBIN 31.4 pg (27.0-33.0); MEAN CORPUSCULAR HGB CONC 33.9 g/dl (32.0-36.5); MEAN CORPUSCULAR VOLUME 92.5 fl (80.0-96.0); MONO # 0.4 10^3/uL (0.0-0.8); MONO % 5.3 % (0.0-5.0); NEUTROPHILS % 86.6 % (36.0-66.0); PLATELET COUNT, AUTOMATED 196 10^3/uL (150-450); RED BLOOD COUNT 3.22 10^6/uL (4.30-6.10); RED CELL DISTRIBUTION WIDTH 15.9 % (11.5-14.5); WHITE BLOOD COUNT 8.1 10^3/uL (4.0-10.0)
[2017-09-25 07:56] LABS: ALBUMIN 2.7 GM/DL (3.2-5.2); ALKALINE PHOSPHATASE 61 U/L (45-117); ALT/SGPT 15 U/L (12-78); ANION GAP 7 MEQ/L (8-16); AST/SGOT 15 U/L (7-37); BILIRUBIN,TOTAL 1.3 MG/DL (0.2-1.0); BLOOD UREA NITROGEN 16 MG/DL (7-18); CALCIUM LEVEL 8.3 MG/DL (8.8-10.2); CARBON DIOXIDE LEVEL 28 MEQ/L (21-32); CHLORIDE LEVEL 107 MEQ/L (98-107); CREATININE FOR GFR 0.76 MG/DL (0.70-1.30); GLOMERULAR FILTRATION RATE > 60.0 (>42); GLUCOSE, FASTING 103 MG/DL (70-100); POTASSIUM SERUM 4.2 MEQ/L (3.5-5.1); SODIUM LEVEL 142 MEQ/L (136-145); TOTAL PROTEIN 5.7 GM/DL (6.4-8.2)
[2017-09-25] MEDS: TAMSULOSIN 0.4 MG CAP PO ×2 (08:31→20:38)
[2017-09-25] MEDS: DOCUSATE SODIUM 100 MG CAP PO ×2 (08:31→20:37)
[2017-09-25] MEDS: GABAPENTIN 300 MG CAP PO ×3 (08:31→20:37)
[2017-09-25] MEDS: ALLOPURINOL 300 MG TAB PO (08:32)
[2017-09-25] MEDS: BACLOFEN 10 MG TAB PO ×2 (08:32→20:37)
[2017-09-25] MEDS: MIDODRINE 2.5 MG TAB PO ×2 (08:32→15:53)
[2017-09-25] MEDS: DULoxetine 30 MG CAP (CYMBALTA) PO (08:32)
[2017-09-25] MEDS: predniSONE 20 MG TAB PO (08:32)
[2017-09-25] MEDS: METOPROLOL TART 12.5 MG PER 1/2 TAB PO ×2 (08:37→20:38)
[2017-09-25] MEDS: RIVAROXABAN 10 MG TAB (XARELTO) PO (17:40)
[2017-09-25] MEDS: predniSONE 10 MG TAB PO (20:37)
[2017-09-25] MEDS: ASPIRIN 81 MG ENTERIC TAB PO (20:37)
[2017-09-25] MEDS: ATORVASTATIN 20 MG TAB PO (20:38)
[2017-09-26] MEDS: IPRATROPIUM 0.5MG/ALBUTEROL 2.5MG INH SOL UD 3ML (DUONEB)(J7620) NEB ×4 (02:00→19:40)
[2017-09-26] MEDS: MEROPENEM INJ 1 GM in APPROPRIATE DILUENT 1 EA IV ×3 (02:02→17:54)
[2017-09-26 05:01] LABS: BASO % 0.3 % (0.0-1.0); EOS # 0.1 10^3/uL (0.0-0.50); EOS % 1.2 % (0.0-3.0); HEMATOCRIT 30.4 % (42.0-52.0); HEMOGLOBIN 9.9 g/dl (13.5-17.5); IMMATURE GRANULOCYTE % 0.5 % (0-3.0); LYMPH # 1.1 10^3/uL (1.5-4.5); LYMPH % 10.7 % (24.0-44.0); MEAN CORPUSCULAR HEMOGLOBIN 31.2 pg (27.0-33.0); MEAN CORPUSCULAR HGB CONC 32.6 g/dl (32.0-36.5); MEAN CORPUSCULAR VOLUME 95.9 fl (80.0-96.0); MONO # 0.7 10^3/uL (0.0-0.8); MONO % 7.6 % (0.0-5.0); NEUTROPHILS # 7.8 10^3/uL (1.8-7.7); NEUTROPHILS % 79.7 % (36.0-66.0); PLATELET COUNT, AUTOMATED 207 10^3/uL (150-450); RED BLOOD COUNT 3.17 10^6/uL (4.30-6.10); RED CELL DISTRIBUTION WIDTH 16.2 % (11.5-14.5); WHITE BLOOD COUNT 9.8 10^3/uL (4.0-10.0)
[2017-09-26 05:15] LABS: ANION GAP 7 MEQ/L (8-16); BLOOD UREA NITROGEN 22 MG/DL (7-18); CALCIUM LEVEL 8.4 MG/DL (8.8-10.2); CARBON DIOXIDE LEVEL 28 MEQ/L (21-32); CHLORIDE LEVEL 108 MEQ/L (98-107); GLOMERULAR FILTRATION RATE > 60.0 (>42); GLUCOSE, FASTING 100 MG/DL (70-100); POTASSIUM SERUM 4.1 MEQ/L (3.5-5.1); SODIUM LEVEL 143 MEQ/L (136-145)
[2017-09-26] MEDS: SLF 3 ML SYR IV ×3 (06:00→20:20)
[2017-09-26] MEDS: ALLOPURINOL 300 MG TAB PO (07:56)
[2017-09-26] MEDS: DULoxetine 30 MG CAP (CYMBALTA) PO (07:57)
[2017-09-26] MEDS: predniSONE 20 MG TAB PO (07:57)
[2017-09-26] MEDS: BACLOFEN 10 MG TAB PO ×2 (07:57→20:18)
[2017-09-26] MEDS: TAMSULOSIN 0.4 MG CAP PO ×2 (07:57→20:20)
[2017-09-26] MEDS: MIDODRINE 2.5 MG TAB PO ×2 (07:57→15:55)
[2017-09-26] MEDS: GABAPENTIN 300 MG CAP PO ×3 (07:58→20:18)
[2017-09-26] MEDS: DOCUSATE SODIUM 100 MG CAP PO ×2 (07:58→20:18)
[2017-09-26] MEDS: MORPHINE 30 MG SA TAB PO ×3 (07:59→23:45)
[2017-09-26] MEDS: METOPROLOL TART 12.5 MG PER 1/2 TAB PO ×2 (08:09→20:20)
[2017-09-26] MEDS: RIVAROXABAN 10 MG TAB (XARELTO) PO (17:54)
[2017-09-26] MEDS: predniSONE 10 MG TAB PO (20:18)
[2017-09-26] MEDS: ASPIRIN 81 MG ENTERIC TAB PO (20:18)
[2017-09-26] MEDS: ATORVASTATIN 20 MG TAB PO (20:18)
[2017-09-27] MEDS: MEROPENEM INJ 1 GM in APPROPRIATE DILUENT 1 EA IV ×2 (01:28→09:49)
[2017-09-27] MEDS: IPRATROPIUM 0.5MG/ALBUTEROL 2.5MG INH SOL UD 3ML (DUONEB)(J7620) NEB ×3 (01:34→14:09)
[2017-09-27 05:12] LABS: BASO % 0.1 % (0.0-1.0); EOS % 0.4 % (0.0-3.0); HEMATOCRIT 33.1 % (42.0-52.0); LYMPH # 1.1 10^3/uL (1.5-4.5); LYMPH % 11.2 % (24.0-44.0); MEAN CORPUSCULAR HEMOGLOBIN 31.7 pg (27.0-33.0); MEAN CORPUSCULAR HGB CONC 33.2 g/dl (32.0-36.5); MEAN CORPUSCULAR VOLUME 95.4 fl (80.0-96.0); MONO # 0.7 10^3/uL (0.0-0.8); MONO % 7.5 % (0.0-5.0); NEUTROPHILS # 7.8 10^3/uL (1.8-7.7); NEUTROPHILS % 79.8 % (36.0-66.0); PLATELET COUNT, AUTOMATED 258 10^3/uL (150-450); RED BLOOD COUNT 3.47 10^6/uL (4.30-6.10); RED CELL DISTRIBUTION WIDTH 16.2 % (11.5-14.5); WHITE BLOOD COUNT 9.8 10^3/uL (4.0-10.0)
[2017-09-27 05:29] LABS: ANION GAP 7 MEQ/L (8-16); BLOOD UREA NITROGEN 25 MG/DL (7-18); CALCIUM LEVEL 8.5 MG/DL (8.8-10.2); CARBON DIOXIDE LEVEL 29 MEQ/L (21-32); CHLORIDE LEVEL 107 MEQ/L (98-107); CREATININE FOR GFR 0.87 MG/DL (0.70-1.30); GLOMERULAR FILTRATION RATE > 60.0 (>42); GLUCOSE, FASTING 103 MG/DL (70-100); POTASSIUM SERUM 4.3 MEQ/L (3.5-5.1); SODIUM LEVEL 143 MEQ/L (136-145)
[2017-09-27] MEDS: SLF 3 ML SYR IV ×2 (05:51→14:00)
[2017-09-27] MEDS: MORPHINE 30 MG SA TAB PO (07:38)
[2017-09-27] MEDS: MIDODRINE 2.5 MG TAB PO (07:38)
[2017-09-27] MEDS: DULoxetine 30 MG CAP (CYMBALTA) PO (09:46)
[2017-09-27] MEDS: TAMSULOSIN 0.4 MG CAP PO (09:46)
[2017-09-27] MEDS: DOCUSATE SODIUM 100 MG CAP PO (09:46)
[2017-09-27] MEDS: GABAPENTIN 300 MG CAP PO (09:47)
[2017-09-27] MEDS: ALLOPURINOL 300 MG TAB PO (09:48)
[2017-09-27] MEDS: predniSONE 20 MG TAB PO (09:48)
[2017-09-27] MEDS: BACLOFEN 10 MG TAB PO (09:48)
[2017-09-27] MEDS: METOPROLOL TART 12.5 MG PER 1/2 TAB PO (09:48)
[2017-09-27] MEDS: FOSFOMYCIN TROMETHAMINE 3 GM POWDER PACKET (MONUROL) PO (13:31)
== END 2017-09-27 15:24 | disposition home health service (06) | DRG 480 ==
LOC: M ED 15:24 → M ED INP 19:13 → M ICU 23:37
PROC: 0QS704Z Reposition Left Upper Femur with Internal Fixation Device, Open Approach (ICD-10-PCS; principal; 2017-09-18 10:30)
DX: S72.145A Nondisplaced intertrochanteric fracture of left femur, initial encounter for closed fracture (principal); J96.21 Acute and chronic respiratory failure with hypoxia; N39.0 Urinary tract infection, site not specified; Z88.0 Allergy status to penicillin; I25.10 Atherosclerotic heart disease of native coronary artery without angina pectoris; Z95.2 Presence of prosthetic heart valve; J44.9 Chronic obstructive pulmonary disease, unspecified; I25.2 Old myocardial infarction; Z87.891 Personal history of nicotine dependence; Z79.899 Other long term (current) drug therapy; Z79.82 Long term (current) use of aspirin; M10.9 Gout, unspecified; F32.9 Major depressive disorder, single episode, unspecified; I10 Essential (primary) hypertension; E78.5 Hyperlipidemia, unspecified; Z96.652 Presence of left artificial knee joint; N40.0 Benign prostatic hyperplasia without lower urinary tract symptoms; M54.5 Low back pain; D64.9 Anemia, unspecified; W07.XXXA Fall from chair, initial encounter; Y92.009 Unspecified place in unspecified non-institutional (private) residence as the place of occurrence of the external cause

== ENCOUNTER → 2017-10-22 | Outpatient (REF) | payer MEDICARE | LOC: M SMT 13:00 | DX: Z01.818 Encounter for other preprocedural examination (principal); N39.0 Urinary tract infection, site not specified | CPT/HCPCS: 87186 ==

== ENCOUNTER 2017-10-31 09:38 | Day surgery (SDC) | payer MEDICARE ==
[~2017-10-31 09:38] MED LIST: LR 1,000 ML IV
[2017-10-31] MEDS ORDERED: fentaNYL 100 MCG/2 ML INJECTION (J3010) As Ordered (10:48)
[2017-10-31] MEDS ORDERED: MIDAZOLAM INJ 2 MG/2 ML VIAL (J2250) As Ordered (10:48)
[2017-10-31] MEDS ORDERED: ROCURONIUM BROMIDE 50 MG/5 ML VIAL As Ordered (10:49)
[2017-10-31] MEDS ORDERED: PROPOFOL 200 MG/20 ML VIAL As Ordered ×2 (10:50)
[2017-10-31] MEDS ORDERED: LIDOCAINE 2% INJ 100 MG/5 ML SDV (FOR ANES.) As Ordered (10:50)
[2017-10-31] MEDS: VANCOMYCIN HCL 1,000 MG, VIAL MATE ADAPTER 1 EACH in D5W 250 ML IV (10:50)
[2017-10-31] MEDS ORDERED: dexameTHASONE 4 MG/ML 1ML VIAL (J1100) As Ordered (12:18)
[2017-10-31] MEDS ORDERED: ONDANSETRON 4MG/2ML VIAL (J2405) As Ordered (12:18)
[2017-10-31] MEDS ORDERED: KETOROLAC 60 MG/2 ML VIAL (J1885) As Ordered (12:18)
[2017-10-31] MEDS: GENTAMICIN 80 MG in APPROPRIATE DILUENT 1 EA IV (12:23)
[2017-10-31] MEDS ORDERED: LR 1,000 ML IV (13:45)
[2017-10-31] MEDS ORDERED: ACETAMINOPHEN TAB 650MG DOSE (2X325MG) PO (13:45)
[2017-10-31] MEDS ORDERED: fentaNYL 100 MCG/2 ML INJECTION (J3010) IV (13:45)
[2017-10-31] MEDS ORDERED: ONDANSETRON 4MG/2ML VIAL (J2405) IV (13:45)
== END 2017-10-31 14:56 | disposition home or self-care (01) ==
LOC: M SDC 09:38
DX: C67.9 Malignant neoplasm of bladder, unspecified (principal); N40.1 Benign prostatic hyperplasia with lower urinary tract symptoms; E78.5 Hyperlipidemia, unspecified; I25.10 Atherosclerotic heart disease of native coronary artery without angina pectoris; I10 Essential (primary) hypertension; M54.5 Low back pain; J44.9 Chronic obstructive pulmonary disease, unspecified; M51.9 Unspecified thoracic, thoracolumbar and lumbosacral intervertebral disc disorder; M48.00 Spinal stenosis, site unspecified; F41.9 Anxiety disorder, unspecified; F32.9 Major depressive disorder, single episode, unspecified; Z88.0 Allergy status to penicillin; Z79.899 Other long term (current) drug therapy; Z79.82 Long term (current) use of aspirin; Z99.81 Dependence on supplemental oxygen; Z87.440 Personal history of urinary (tract) infections; Z95.5 Presence of coronary angioplasty implant and graft; Z87.891 Personal history of nicotine dependence
CPT/HCPCS: 52234

== ENCOUNTER → 2017-11-29 | Outpatient (REF) | payer MEDICARE | LOC: M SMT 13:45 | DX: N39.0 Urinary tract infection, site not specified (principal) | CPT/HCPCS: 87186 ==

== ENCOUNTER 2018-03-11 13:27 | Emergency (ER) | payer MEDICARE ==
[2018-03-11 13:56] LABS: VENOUS BASE EXCESS 1.6 (-2.0-2.0); VENOUS HCO3 28.7 MEQ/L (23.0-27.0); VENOUS O2 SATURATION 47.5 % (60.0-80.0); VENOUS PARTIAL PRESSURE CO2 55.4 mmHg (38.0-50.0); VENOUS PARTIAL PRESSURE O2 28.1 mmHg (30.0-50.0); VENOUS PH 7.332 UNITS (7.330-7.430); VENOUS STANDARD HCO3 24.7 MEQ/L; VENOUS TOTAL CO2 30.4 MEQ/L (24.0-28.0)
[2018-03-11] MEDS: methylPREDNISolone INJ 125 MG/2 ML VIAL (J2930) IV (14:03)
[2018-03-11] MEDS: ASPIRIN 81 MG CHEW TABLET PO (14:04)
[2018-03-11 14:05] LABS: BASO % 0.1 % (0.0-1.0); EOS % 0.4 % (0.0-3.0); HEMATOCRIT 39.2 % (42.0-52.0); HEMOGLOBIN 12.7 g/dl (13.5-17.5); IMMATURE GRANULOCYTE % 0.3 % (0-3.0); LYMPH # 0.7 10^3/uL (1.5-4.5); LYMPH % 10.1 % (24.0-44.0); MEAN CORPUSCULAR HEMOGLOBIN 29.4 pg (27.0-33.0); MEAN CORPUSCULAR HGB CONC 32.4 g/dl (32.0-36.5); MEAN CORPUSCULAR VOLUME 90.7 fl (80.0-96.0); MONO # 0.2 10^3/uL (0.0-0.8); MONO % 3.1 % (0.0-5.0); NEUTROPHILS # 6.1 10^3/uL (1.8-7.7); PLATELET COUNT, AUTOMATED 177 10^3/uL (150-450); RED BLOOD COUNT 4.32 10^6/uL (4.30-6.10); RED CELL DISTRIBUTION WIDTH 17.8 % (11.5-14.5); WHITE BLOOD COUNT 7.1 10^3/uL (4.0-10.0)
[2018-03-11] MEDS: IPRATROPIUM 0.5MG/ALBUTEROL 2.5MG INH SOL UD 3ML (DUONEB)(J7620) NEB (15:13)
[2018-03-11 16:08] LABS: KETONE, URINE AUTO RFX NEGATIVE (NEGATIVE); LEUKOCYTE ESTERASE UR AUTO RFX 2+ (NEGATIVE); MUCUS, URINE RFX SMALL (NEGATIVE); NITRITE, URINE AUTO RFX NEGATIVE (NEGATIVE); RBC, URINE AUTO RFX 3 /HPF (0-3); SPECIFIC GRAVITY UR AUTO RFX 1.011 (1.002-1.035); SQUAM EPITHELIAL CELL UR AURFX 0 /HPF (0-6); WBC, URINE AUTO RFX 43 /HPF (0-3)
[2018-03-11 16:47] LABS: ANION GAP 8 MEQ/L (8-16); BLOOD UREA NITROGEN 24 MG/DL (7-18); CALCIUM LEVEL 8.9 MG/DL (8.8-10.2); CARBON DIOXIDE LEVEL 28 MEQ/L (21-32); CHLORIDE LEVEL 101 MEQ/L (98-107); CPK CREATINE PHOSPHOKINASE 155 U/L (39-308); CREATININE FOR GFR 1.66 MG/DL (0.70-1.30); GLOMERULAR FILTRATION RATE 43.8 (>42); GLUCOSE, FASTING 107 MG/DL (70-100); MB/CK RELATIVE INDEX 3.81 (< OR =4); POTASSIUM SERUM 4.6 MEQ/L (3.5-5.1); SODIUM LEVEL 137 MEQ/L (136-145); TROPONIN I 0.36 NG/ML (< 0.10)
== END 2018-03-11 16:58 | disposition home or self-care (01) ==
LOC: M ED 13:27
DX: J44.1 Chronic obstructive pulmonary disease with (acute) exacerbation (principal); N39.0 Urinary tract infection, site not specified; I10 Essential (primary) hypertension; Z98.61 Coronary angioplasty status; Z95.1 Presence of aortocoronary bypass graft
CPT/HCPCS: J2930

== ENCOUNTER 2018-03-30 19:58 | Inpatient (IN) | payer MEDICARE ==
[~2018-03-30] VITALS: Ht 175.3 cm; Wt 76.4 kg
[~2018-03-30 19:58] MED LIST changes: +ACYC200C8 PO; +ALLO10TA PO; +ASPI1TAB PO; +ASPI81TA24 PO; +ATOR1TAB21 PO; +BACL10TA2 PO; +BACT800T5 PO; +CIPR-249 PO; +DULO1CAP3 PO; +ESCI10TA2 PO; +ESCI5SOL3 PO; +FINA5TAB2 PO; +FLOM0.4C39 PO; +Fosfomycin Tromethamine PO; +GABA-845 PO; +GABA600T4 PO; -LR 1,000 ML IV; +METO1TAB32 PO; +METO1TAB87 PO; +METO50TA7 PO; +MIDO2.5T PO; +MORP-38 PO; +MORP1TAB21 PO; +MORP20SO PO; +NITR0.4S14 SL; +PRED10TA2 PO; +PRED20TA PO; +SULF1TAB72 PO; +XARE10TA PO; +ZYLO300T6 PO
[2018-03-30] MEDS ORDERED: IMIPENEM/CILASTATIN 500 MG in D5W MINI-BAG PLUS 100 ML IV ONE (20:15)
[2018-03-30 20:21] LABS: VENOUS BASE EXCESS -8.1 (-2.0-2.0); VENOUS HCO3 19.7 MEQ/L (23.0-27.0); VENOUS O2 SATURATION 49.4 % (60.0-80.0); VENOUS PARTIAL PRESSURE CO2 48.6 mmHg (38.0-50.0); VENOUS PARTIAL PRESSURE O2 34.2 mmHg (30.0-50.0); VENOUS PH 7.225 UNITS (7.330-7.430); VENOUS TOTAL CO2 21.2 MEQ/L (24.0-28.0)
[2018-03-30 20:24] LABS: BASO % 0.1 % (0.0-1.0); EOS % 0.1 % (0.0-3.0); HEMOGLOBIN 13.8 g/dl (13.5-17.5); LYMPH # 0.3 10^3/uL (1.5-4.5); LYMPH % 3.2 % (24.0-44.0); MEAN CORPUSCULAR HEMOGLOBIN 29.5 pg (27.0-33.0); MEAN CORPUSCULAR HGB CONC 32.1 g/dl (32.0-36.5); MEAN CORPUSCULAR VOLUME 91.9 fl (80.0-96.0); MONO # 0.3 10^3/uL (0.0-0.8); MONO % 3.7 % (0.0-5.0); NEUTROPHILS # 7.8 10^3/uL (1.8-7.7); NEUTROPHILS % 92.3 % (36.0-66.0); PLATELET COUNT, AUTOMATED 100 10^3/uL (150-450); RED BLOOD COUNT 4.68 10^6/uL (4.30-6.10); WHITE BLOOD COUNT 8.5 10^3/uL (4.0-10.0)
[2018-03-30 20:28] LABS: ABG BASE EXCESS -8.2 (-2.0-2.0); ABG O2 SATURATION 97.5 % (95.0-99.0); ABG PARTIAL PRESSURE CO2 29.8 mmHg (35.0-45.0); ABG PARTIAL PRESSURE O2 102.4 mmHg (75.0-100.0); ABG pH (ARTERIAL) 7.349 UNITS (7.350-7.450)
[2018-03-30] MEDS ORDERED: ACETAMINOPHEN TAB 650MG DOSE (2X325MG) PO ONE (20:30)
--- NOTE | 2018-03-30 20:33 | REP ---
Clinical: Cough and dyspnea. Technique: Portable upright AP view. Comparison: 03/11/2018. Findings: Mediastinum and cardiac silhouette are stable. Diffuse chronic interstitial and fibrotic changes are appreciated with superimposed left lower lobe infiltrate compatible with pneumonia. No obvious effusion. No pneumothorax. Skeletal structures stable. Impression: Acute left lower lobe infiltrate compatible with pneumonia/atelectasis. Electronically Signed by Juma Anderson MD 03/30/2018 08:24 P
[2018-03-30] MEDS ORDERED: PRED10TA2 PO (20:44)
[2018-03-30] MEDS ORDERED: OXYB10TA PO (20:44)
[2018-03-30] MEDS: IPRATROPIUM 0.5MG/ALBUTEROL 2.5MG INH SOL UD 3ML (DUONEB)(J7620) NEB PRN ×2 (20:58→21:22)
[2018-03-30 21:03] LABS: ALBUMIN 3.1 GM/DL (3.2-5.2); BILIRUBIN,DIRECT 0.7 MG/DL (0.0-0.2); BILIRUBIN,TOTAL 1.4 MG/DL (0.2-1.0); CALCIUM LEVEL 8.8 MG/DL (8.8-10.2); CREATININE FOR GFR 1.84 MG/DL (0.70-1.30); GLOMERULAR FILTRATION RATE 38.9 (>42); MB/CK RELATIVE INDEX 2.23 (< OR =4); POTASSIUM SERUM 5.3 MEQ/L (3.5-5.1); THYROID STIMULATING HORMONE 0.908 uIU/ML (0.358-3.740); THYROXINE (T4) 6.7 UG/DL (4.5-12.0); TOTAL PROTEIN 5.9 GM/DL (6.4-8.2); TROPONIN I 0.47 NG/ML (< 0.10)
[2018-03-30] MEDS ORDERED: NS 2,250 ML in APPROPRIATE DILUENT 1 EA IV ONE (21:30)
[2018-03-30] MEDS ORDERED: MORPHINE 4 MG/ML 1ML VIAL/SYRINGE (J2270) IV PRN (22:45)
[2018-03-30 22:55] LABS: MB/CK RELATIVE INDEX 1.93 (< OR =4); TROPONIN I 0.95 NG/ML (< 0.10)
[2018-03-31] VITALS (11 sets, daily range): BP systolic 96–134; BP diastolic 56–74; O2SAT 83–91
[2018-03-31] MEDS ORDERED: ONDANSETRON 4MG/2ML VIAL (J2405) IV PRN (00:30)
[2018-03-31] MEDS ORDERED: IPRATROPIUM 0.5MG/ALBUTEROL 2.5MG INH SOL UD 3ML (DUONEB)(J7620) NEB PRN (00:30)
[2018-03-31] MEDS ORDERED: BISACODYL 10 MG SUPP PR PRN (00:30)
[2018-03-31] MEDS ORDERED: ACETAMINOPHEN TAB 650MG DOSE (2X325MG) PO PRN (00:30)
[2018-03-31] MEDS ORDERED: NITROGLYCERIN 0.4 MG SUBL TABLET SL PRN (00:45)
--- NOTE | 2018-03-31 01:18 | HPEPDOC ---
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 concern that he may have bladder cancer, severe spinal stenosis, adxed in July 2017 for septic shock complicated by respiratory failure and NH, and then in August 2017 for left hip fracture status post ORIF, hospitalization at that time complicated by respiratory failure, ESBL UTI, and hypotension. Patient was subsequently able to go home and is on chronic 6-8 L nasal cannula saturating only in the 85-87% baseline at rest. Requiring 10 L with activity at home. Today Patient concentrator not working. Patient cranked up his oxygen to 10 L and EMS call. Patient was placed on nonrebreather. In the emergency room patient was noted to have hypoxemic, febrile, and as per ER physician bluish in color and thus was placed on BiPAP. Patient was started on antibiotic and fluid. Patients condition improved. Patient resting comfortably on BiPAP in the emergency room. Patient was also noted to have positive troponin. ER contacted human resources safety manager and specialty development consultant to agree to see and follow patient. Patient resting comfortably with daughter at the bedside on BiPAP. Patient denies of any chest pain. He denied of any abdominal pain, diarrhea or dysuria. Feeling better and able to breathe on BiPAP. Patients recently in March 152017. Shortly after couple days later patient tries PCP and requested DNR/DNI and comfort care. Denied in the emergency room patient requests that he be treated and short-term intubation be utilized if needed but requests that he be DNR. Patient aware the risk and benefit of intubation, especially in light of his lung disease. Well honor patients wishes. Review system: 10 point review systems negative than those described in HPI. 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 concern that he may have bladder cancer, severe spinal stenosis, recently admitted with septic shock complicated by respiratory failure and NH in July 2017, left hip fracture in August 2017 [facility]: left knee sx, left hip orif, cardiac stent SOCIAL HISTORY: Former smoker 50 pack years, occasional etoh, worked in the [place] in the past, no IV drug abuse ALLERGIES: Please see below. HOME MEDICATIONS: Please see below. PHYSICAL EXAMINATION: VITAL SIGNS: Please see below GENERAL APPEARANCE: Resting comfortably with Bipap HEENT: Normocephalic, PERRLA, Mucous moist, CARDIOVASCULAR: S1,S2, pulse present, regularly, regular LUNGS: Equal decreased air entry b/l, no wheezes but fine crackles base ABDOMEN: Soft, BS present, no tenderness, no guarding GENITOURINARY: No Owens EXTREMITIES: B/L no edema, capillary refill present SKIN: Warm, No fever NEUROLOGICAL: Cranial nerves grossly intact PSYCHIATRIC: Normal mood and affect for current situation, daughter at bedside LABORATORY DATA: See below. IMAGING: [CXR: Acute left lower lobe infiltrate compatible with pneumonia/atelectasis.] MICROBIOLOGY: Please see below. 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 concern that he may have bladder cancer, severe spinal stenosis, adxed in July 2017 for septic shock complicated by respiratory failure and NH, and then in August 2017 for left hip fracture status post ORIF, hospitalization at that time complicated by respiratory failure, ESBL UTI, and hypotension. Patient was subsequently able to go home and is on chronic 6-8 L nasal cannula saturating only in the 85-87% baseline at rest. Requiring 10 L wit h activity at home. Patient came to the emergency room complaining of shortness of breath after his concentrator malfunctioned and in the ER noted to have fever and pneumonia on the chest x-ray. Severe Sepsis with end organ damage from left lower lobe pneumonia + lactic [employer]+ hypoxemia -History of end-stage lung disease chronically on oxygen 6-8 L at rest titrate (baseline saturation only 85-87% at home) and requires 10 L with activity -RT, oxygen, BiPAP as per pulmonology -Blood cultures pending -Empiric primaxin and Levaquin -Pulmonary Dr. Aden consulted -ICU monitoring -IV fluid -Chronically on prednisone, utilize IV steroids for stress -Resume home acyclovir Acute renal failure, secondary due to sepsis -IV fluid -Renal ultrasound -Continue to monitor -Avoid renal toxic medication Mild hyperkalemia -Likely will improve with IV fluid and urination -Owens prn -Continue to monitor -Telemetry Positive troponin from sepsis(NH in july 2017 from sepsis), history of CAD status post stent -Telemetry, serial cardiac enzyme, echocardiogram -Cardiology Dr. Isabel consulted -continue asa, pt not on bb or statin -spoke to pharmacy, patient was on metoprolol at time of previous NH but ? if patient not been taking due to not filling meds or med d/c. Judiciously use metoprolol as patient has lung disease and await further recommendation by cardiology such as calcium channel blockers or alternative medication(s) -lipid profile -echo july 2017: 1. Technically limited study due to poor acoustic window due to lung interference. 2. Normal global left ventricular systolic function. There are features of left ventricular diastolic dysfunction, grade 1. 3. Aortic valve sclerosis without stenosis or aortic regurgitation. 4. Mild tricuspid regurgitation with mild pulmonary hypertension. Transaminitis and mild elevation of bilirubin, organ damage likely from sepsis -Treat problems above -Monitor -Liver ultrasound -Avoid hepatic toxic medication if possible -Protonix iv Gout, hold allopurinol Chronic pain, resume home regimen baclofen, gabapentin (renally dose), morphine judiciously (use Narcan prn) Depression, resume escitalopram DVT px with hep sc DNR but trial of intubation okay. Will honor patient's wishes. Patient and family willing to have ongoing discussion. Vital Signs Vital Signs Date Time Temp Pulse Resp B/P (MAP) Pulse Ox O2 Delivery O2 Flow Rate FiO2 03/31/18 01:04 99.4 03/31/18 00:45 93 101/59 (73) 88 03/30/18 23:00 25 NIPPV (BIPAP/CPAP) 03/30/18 20:51 80 Laboratory Data Labs 24H Laboratory Tests 2 03/30/18 20:08: Immature Granulocyte % (Auto) 0.6, White Blood Count 8.5, Red Blood Count 4.68, Hemoglobin 13.8, Hematocrit 43.0, Mean Corpuscular Volume 91.9, Mean Corpuscular Hemoglobin 29.5, Mean Corpuscular Hemoglobin Concent 32.1, Red Cell Distribution Width 19.1H, Platelet Count 100L, Neutrophils (%) (Auto) 92.3H, Lymphocytes (%) (Auto) 3.2L, Monocytes (%) (Auto) 3.7, Eosinophils (%) (Auto) 0.1, Basophils (%) (Auto) 0.1, Neutrophils # (Auto) 7.8H, Lymphocytes # (Auto) 0.3L, Monocytes # (Auto) 0.3, Eosinophils # (Auto) 0.0, Basophils # (Auto) 0.0, Nucleated Red Blood Cells % (auto) 0.0, Blood Gas Bicarbonate Standard 17.0, Venous Blood pH 7.225L, Venous Blood Partial Pressure CO2 48.6, Venous Blood Partial Pressure O2 34.2, Venous Blood Total Carbon Dioxide 21.2L, Venous Blood HCO3 19.7L, Venous Blood Oxygen Saturation 49.4L, Venous Blood Base Excess -8.1L, Anion Gap 16, Glomerular Filtration Rate 38.9L, Lactic Acid Level 10.0*H, Calcium Level 8.8, Aspartate Amino Transf (AST/SGOT) 1459H, Alanine Aminotransferase (ALT/SGPT) 934H, Alkaline Phosphatase 310H, Total Bilirubin 1.4H, Direct Bilirubin 0.7H, Total Creatine Kinase 193, Creatine Kinase MB 4.0H, Creatine Kinase MB Relative Index 2.23, Troponin I 0.47H, XS-Isu-T-Type Natriuretic Peptide [id number], Total Protein 5.9L, Albumin 3.1L, Albumin/Globulin Ratio 1.11, Thyroid Stimulating Hormone (TSH) 0.908, Thyroxine (T4) 6.7 03/30/18 20:25: Blood Gas Bicarbonate Standard 18.0L, Arterial Blood pH 7.349L, Arterial Blood Partial Pressure CO2 29.8L, Arterial Blood Partial Pressure O2 102.4H, Arterial Blood Total CO2 17.0L, Arterial Blood HCO3 16.0L, Arterial Blood Base Excess - 8.2L, Arterial Blood Oxygen Saturation 97.5 03/30/18 22:10: Total Creatine Kinase 228, Creatine Kinase MB 4.0H, Creatine Kinase MB Relative Index 1.93, Troponin I 0.95#H 03/31/18 00:39: CBC/BMP Laboratory Tests 03/30/18 20:08 Red Blood Count 4.68, Mean Corpuscular Volume 91.9, Mean Corpuscular Hemoglobin 29.5, Mean Corpuscular Hemoglobin Concent 32.1, Red Cell Distribution Width 19.1 H, Neutrophils (%) (Auto) 92.3 H, Lymphocytes (%) (Auto) 3.2 L, Monocytes (%) (Auto) 3.7, Eosinophils (%) (Auto) 0.1, Basophils (%) (Auto) 0.1, Neutrophils # (Auto) 7.8 H, Lymphocytes # (Auto) 0.3 L, Monocytes # (Auto) 0.3, Eosinophils # (Auto) 0.0, Basophils # (Auto) 0.0 Microbiology Microbiology 03/30/18 Blood Culture, Received Pending 03/30/18 Blood Culture, Received Pending 03/30/18 Respiratory Virus Panel (PCR) ([facility]) - Final, Complete Home Medications Scheduled (Acyclovir) 200 Mg Cap, 200 MG PO TID Allopurinol (Zyloprim) 300 Mg Tab, 300 MG PO DAILY Aspirin (Aspirin EC) 81 Mg Tab, 81 MG PO QHS Baclofen (Baclofen) 10 Mg Tab, 10 MG PO BID Escitalopram Oxalate (Escitalopram Oxalate) 10 Mg Tab, 10 MG PO DAILY Gabapentin (Gabapentin) 600 Mg Tab, 600 MG PO DAILY 1200 Morphine Sulfate (Morphine Sulfate Cr) 60 Mg Tab, 60 MG PO TID Oxybutynin Chloride (Oxybutynin Chloride ER) 10 Mg Tab, 10 MG PO DAILY Prednisone (Prednisone) 10 Mg Tab, 10 MG PO DAILY Scheduled PRN Nitroglycerin (Nitroglycerin) 0.4 Mg Sub, 0.4 MG SL NITRO PRN for CHEST PAIN Allergies Coded Allergies: Penicillins (Verified Allergy, Mild, RASH / ITCHING, 03/11/18) KAMRYN MCGEE MD Mar 31, 2018 01:18
[2018-03-31 01:20] LABS: MB/CK RELATIVE INDEX 1.95 (< OR =4); TROPONIN I 1.95 NG/ML (< 0.10)
[2018-03-31] MEDS ORDERED: ESCI10TA2 PO (01:25)
[2018-03-31] MEDS: IPRATROPIUM 0.5MG/ALBUTEROL 2.5MG INH SOL UD 3ML (DUONEB)(J7620) NEB SCH ×4 (01:42→19:27)
[2018-03-31] MEDS: LevoFLOXacin IV 750 MG in APPROPRIATE DILUENT 1 EA IV SCH (02:04)
[2018-03-31] MEDS: NS 1,000 ML IV SCH ×3 (02:05→21:15)
[2018-03-31] MEDS ORDERED: METOPROLOL SUCC *XL* 12.5MG PER 1/2 TAB (TopROL *XL*) PO ONE (02:15)
[2018-03-31] MEDS ORDERED: METOPROLOL TART 12.5 MG PER 1/2 TAB PO ONE (02:40)
[2018-03-31] MEDS: ASPIRIN 81 MG ENTERIC TAB PO SCH ×2 (03:07→21:14)
[2018-03-31] MEDS: PANTOPRAZOLE 40MG INJ (PROTONIX) (C9113) IV SCH (05:38)
[2018-03-31] MEDS: IMIPENEM/CILASTATIN 500 MG in D5W MINI-BAG PLUS 100 ML IV SCH ×3 (05:39→21:15)
[2018-03-31] MEDS: MORPHINE 30 MG SA TAB PO SCH ×3 (05:39→21:16)
[2018-03-31] MEDS ORDERED: HEPARIN SOD (PORCINE) 5000 UNITS/ML VIAL SC SCH (06:00)
[2018-03-31] MEDS ORDERED: PREVNAR 13 VACCINE SYRINGE (CPT CODE:90670) IM SCH (06:00)
[2018-03-31 06:11] LABS: HEMATOCRIT 38.5 % (42.0-52.0); HEMOGLOBIN 12.3 g/dl (13.5-17.5); MEAN CORPUSCULAR HGB CONC 31.9 g/dl (32.0-36.5); MEAN CORPUSCULAR VOLUME 90.8 fl (80.0-96.0); RED BLOOD COUNT 4.24 10^6/uL (4.30-6.10); WHITE BLOOD COUNT 9.7 10^3/uL (4.0-10.0)
[2018-03-31 06:40] LABS: MB/CK RELATIVE INDEX 2.3 (< OR =4); TROPONIN I 2.07 NG/ML (< 0.10)
[2018-03-31 06:44] LABS: PLATELET COUNT, AUTOMATED 71 10^3/uL (150-450)
[2018-03-31 07:00] LABS: ALBUMIN 2.6 GM/DL (3.2-5.2); BILIRUBIN,TOTAL 0.9 MG/DL (0.2-1.0); CALCIUM LEVEL 7.7 MG/DL (8.8-10.2); CHOLESTEROL RISK RATIO 1.912 (<5); CREATININE FOR GFR 1.49 MG/DL (0.70-1.30); FREE THYROXINE INDEX 1.9 % (1.4-3.8); GLOMERULAR FILTRATION RATE 49.6 (>42); MAGNESIUM LEVEL 2.2 MG/DL (1.8-2.4); POTASSIUM SERUM 5.1 MEQ/L (3.5-5.1); THYROID STIMULATING HORMONE 0.653 uIU/ML (0.358-3.740); THYROXINE (T4) 5.7 UG/DL (4.5-12.0)
[2018-03-31 08:57] LABS: ABG BASE EXCESS -4.1 (-2.0-2.0); ABG HCO3 20.4 MEQ/L (22.0-26.0); ABG O2 SATURATION 96.4 % (95.0-99.0); ABG PARTIAL PRESSURE CO2 35.5 mmHg (35.0-45.0); ABG STANDARD HCO3 21.1 MEQ/L (22.0-26.0); ABG TOTAL CO2 21.5 MEQ/L (23.0-31.0); ABG pH (ARTERIAL) 7.377 UNITS (7.350-7.450)
[2018-03-31] MEDS ORDERED: ESCITALOPRAM OXALATE 5MG TABLET (LEXAPRO) PO SCH (09:00)
[2018-03-31] MEDS ORDERED: METOPROLOL TART 12.5 MG PER 1/2 TAB PO SCH (09:00)
[2018-03-31] MEDS ORDERED: methylPREDNISolone INJ 40 MG/1 ML VIAL (J2920) IV SCH (09:00)
[2018-03-31] MEDS ORDERED: predniSONE 10 MG TAB PO SCH (09:00)
--- NOTE | 2018-03-31 09:23 | REP ---
Clinical: Elevated liver function tests and decreased renal function. Technique: Real time coronado scale and color ultrasound examination using curved array transducer including Doppler evaluation of the hepatic vasculature. Findings: The liver is grossly unremarkable. Gallbladder demonstrates considerable wall thickening greater than 12 mm without sonographic Randhawa's sign or obvious gallstones. No biliary ductal dilatation is appreciated and the common bile duct measures 3.9 mm diameter. The spleen is minimally enlarged but normal in contour and echogenicity without focal splenic lesion and measures 10.9 x 5.5 x 10.8 cm (splenic index 647). The pancreas is incompletely evaluated due to interposed bowel gas. The bilateral kidneys demonstrate cortical thinning and increased central sinus fat consistent with chronic metal pole renal disease and no evidence for hydronephrosis. Right kidney measures 10.6 x 6.4 x 5.1 cm. Left kidney measures 9.5 x 6.4 x 6.3 cm. Trace perihepatic free fluid. Doppler interrogation demonstrates normal flow direction and velocities. There is evidence pulsatile portal venous flow along with prominent hepatic veins consistent with CHF/cardiac disease including tricuspid regurgitation. Main portal vein 16.3 cm/sec Right portal vein 18.3 cm/sec Main portal vein 16.1 cm/sec Left portal vein 16.9 cm/sec Impression: 1. Significant gallbladder wall thickening and small amount of perihepatic ascites. No gallstones or sonographic Randhawa's sign. No biliary ductal dilatation. 2. Chronic medical renal disease without hydronephrosis. 3. Doppler interrogation consistent with cardiac disease. Electronically Signed by Juma Anderson MD 03/31/2018 09:14 A
[2018-03-31] MEDS: BISACODYL 5 MG TAB PO PRN (10:05)
[2018-03-31] MEDS: methylPREDNISolone INJ 125 MG/2 ML VIAL (J2930) IV SCH ×3 (10:05→21:14)
[2018-03-31] MEDS: BACLOFEN 10 MG TAB PO SCH ×2 (10:05→21:14)
[2018-03-31] MEDS: SENOKOT S TAB PO SCH ×2 (10:06→21:14)
[2018-03-31] MEDS: ESCITALOPRAM OXALATE 10 MG TAB (LEXAPRO) PO SCH (10:06)
[2018-03-31] MEDS: oxyBUTYnin *DITROPAN XL* 5 MG TABCR PO SCH (10:06)
[2018-03-31] MEDS: ACYCLOVIR 200 MG CAPSULE PO SCH ×3 (10:07→21:14)
[2018-03-31] MEDS ORDERED: GABAPENTIN 300 MG CAP PO SCH (12:00)
[2018-03-31] MEDS: GABAPENTIN 300 MG CAP PO SCH (12:51)
--- NOTE | 2018-03-31 13:36 | CR ---
DATE OF CONSULTATION: 03/31/2018 CARDIOLOGY CONSULTATION (Covering for Dr. Nathan and Dr. Jonas) INDICATION: Acute on chronic respiratory failure with probable pneumonia. Troponin I elevation. HISTORY: This 72-year-old, recently (for the second time) father of six (two of his own and four of his departed ), disabled since 1992 (originally due to orthopedic injury; more recently advanced pulmonary disease). 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 Known history of ischemic heart disease dating back 2013. Had three stents placed for a distal right coronary artery (RCA) occlusion. Had preserved left ventricular systolic function at that time with 40% left anterior descending (LAD) stenosis. July 2017, hospitalized for urosepsis and shock requiring high dose pressor therapy. Had very subtle EKG ST-T wave changes with troponin rise of approximately 4. Has continued to follow with Dr. Nathan. CARDINAL CARDIAC SYMPTOMS: With his respiratory problems and continuous home O2, walks no farther than approximately 12 feet prior to stopping with shortness of breath. Did not recall having chest pain at the time of his septic shock July 2017. Have been experiencing some increasing shortness of breath over the course of several days and yesterday reports he had a sustained lower chest discomfort. Took two sublingual nitroglycerin with response after 15 minutes. Has had no recurrent discomfort here. Was subsequently found collapsed on the floor and an ambulance was summoned. EMS found the patient on the ground and reported he was cold to touch. On nasal cannula at 8 liters per minute, his O2 saturation was only 55%. Initial emergency room (ER) vital signs showed a heart rate of 133 beats per minute, blood pressure 103/58 with temperature of 102.7 degrees. Portable upright chest x-ray was reported as showing "stable heart size" with diffuse chronic interstitial and fibrotic changes with superimposed left lower lobe pneumonia, new from March 11, 2018. No pleural effusion or pneumothorax. EKG was reported as showing sinus tachycardia with nonspecific ST- T wave abnormalities. Normal white blood cell count. Presenting arterial blood gas pH of 7.35, pCO2 of 30, a pO2 of 102 on Bilevel positive airway pressure (BiPAP). Pro-BNP level was elevated at 12,191 (up from 2267August 2017). Serial troponin I levels showed initially indeterminate levels that reached a maximum of 2 shortly after midnight. Cardiology consult was placed because of his prior history and these troponin elevations. Effort dyspnea and associated chronic cough, as mentioned above. Somewhat restless sleeper but no history of sleep apnea. No history of dependent edema or known cardiomegaly. Has not been on diuretic therapy. Claims not to have a problem with dizziness, and his only falls were related to trips with his feet tangled in his oxygen tubing. Fractured his hip July 2017. Loss of awareness at the time of his urosepsis in 2013 and yesterday with his acute on chronic respiratory distress. Denies any lateralizing neurological deficit to suggest a systemic embolic event. No history of claudication or ankle swelling. CORONARY RISK FACTORS: Age. Male gender. Remote 50 year history of smoking. Chronic hypertension and dyslipidemia. No history of diabetes mellitus or family history of premature coronary heart disease. OTHER PAST MEDICAL HISTORY: Weight problem. Smoking-induced COPD/chronic respiratory failure, on continuous home O2. Benign prostatic hypertrophy with recent diagnosis of bladder cancer. Gout. Chronic depression. Prior left knee replacement. Extraction of teeth. Several urological procedures and left hip internal fixation August 2017. SYSTEMS REVIEW: Apparently had noticed some feverishness and worsening of his dyspnea with chronic cough. All other systems review is negative. MEDICATIONS: At home, he is on prednisone 10 mg daily, continuous home O2 by nasal prongs. Aspirin 81 mg daily, morphine sulfate 60 mg by mouth three times a day, baclofen 10 mg twice a day (for spinal stenosis), escitalopram 10 mg daily, oxybutynin 10 mg by mouth daily, allopurinol 300 mg daily, gabapentin 600 mg tablets daily, nitroglycerin 0.4 mg every 5 minutes as needed for chest pain, acyclovir 200 mg by mouth three times a day. ALLERGIES: PENICILLIN. PHYSICAL EXAMINATION: CONSTITUTIONAL: Pleasant elderly male of medium body build, lay seemingly comfortable with the head of the bed elevated 30 degrees, on BiPAP. Was able to communicate without difficulty. Had a good memory for prior events. VITAL SIGNS: Heart rate 69 beats per minute and regular, blood pressure 126/74 supine, respiratory rate 18, oxygen saturation 96% on BiPAP with supplemental oxygen at 55%. Afebrile. Weight 170 pounds. Height 69 inches. Body mass index (BMI) 25. EYES: Normal conjunctivae and lids. No pallor or icterus, or petechiae. No xanthelasma. ENT/MOUTH: Normal oral moisture. No central cyanosis. NECK: Trachea midline. Thyroid was not enlarged. Neck veins were not elevated. RESPIRATORY: Increased anteroposterior chest diameter with reduced chest excursion. Reduced air entry with inspiratory rales, especially left base posteriorly. Prolongation of expiration but no audible wheeze. CARDIOVASCULAR: Apical impulse not palpable. Heart sounds not audible. No obvious gallop, rub, or murmur. Normal carotid upstrokes and volume with no audible bruit. Upper extremity pulses were symmetrical and normal. Femoral pulses were also symmetrical and normal. Pedal pulses were symmetrically decreased. There was no dependent edema. No varicose veins. Abdominal aorta not palpable. No bruit. EXTREMITIES: No clubbing, peripheral cyanosis, or splinter hemorrhages. GASTROINTESTINAL: Soft, nontender abdomen with no hepatosplenomegaly. Rectal examination not indicated. MUSCULOSKELETAL: Well-healed knee incision, but no obvious joint deformities. History of spinal stenosis and back pain. Gait, of course, was not assessed at this time. NEUROLOGIC/PSYCH: Bright, alert, and oriented, gave a lucid history. Eye, facial, and extremity movements were symmetrical and normal. No abnormal movements. Current affect appeared to be normal. SKIN: No pallor, icterus, or ecchymotic lesions. INVESTIGATIONS: Chest x-ray from last evening was reviewed independently. Portable upright study with heavy pulmonary interstitial markings, somewhat difficult to define cardiac size precisely, but this was perhaps upper limits of normal at worst. Unfolded thoracic aorta. Pulmonary markings clearly were asymmetrical, the left lower base, in keeping with new pneumonitis that has developed since March 11, 2018. Echocardiogram: Study performed at [facility] August 13, 2017 because of his urosepsis and hypotension showed obvious technical difficulties but left ventricle of normal size with normal wall thickness and wall motion, left ventricular ejection fraction (LVEF) 55-60%. Left atrium was reportedly normal. Difficult to see his right heart chamber sizes, but his inferior vena cava was reported to be normal in size. Pulmonary trunk and pulmonary vasculature was not well visualized. Mild aortic valvular sclerosis with adequate separation. Mild mitral annular calcification with adequate leaflet excursion. Doppler showed a degree of left ventricular (LV) diastolic dysfunction and at least mild pulmonary hypertension, mild tricuspid, but no aortic or mitral insufficiency. Serial EKGs: Tracing yesterday at 8:26 p.m. showed sinus tachycardia at 123 beats per minute, low voltages with left atrial conduction disturbance, prominent R waves in V1 and V2 with small inferior Q waves, question of prior inferoposterior infarction, could not rule out right ventricular hypertrophy. Subtle diffuse ST-T wave abnormalities that actually seemed to become a little bit more prominent on followup tracing yesterday at 10:00 p.m. These abnormalities were not significantly changed from those of March 11, 2018. Chest CT scan with contrast: Study performed September 20, 2017 was reviewed independently and shows atherosclerotic change of his thoracic aorta but vessel of normal diameter with aortic root diameter of 3.5 cm. Pulmonary trunk was slightly dilated at 3.0 cm. Some calcification of the coronary arteries. Left atrial size was at least mildly increased. Left ventricular size and wall thickness appeared to be normal. Right heart chambers were obviously dilated. His inferior vena cava was upper limits of normal at 2.4, slightly dilated. Miniscule pericardial effusion. Lungs were reported to show honeycombing throughout both lung jacinto, consistent with fibrosis, more advanced in the right lung. Focal consolidation versus mass in the right lower lobe measuring 4 cm in diameter. Some calcification and associated focal pleural thickening. Enlarged paratracheal lymph node. Multiple mediastinal nodes of borderline size. Upper abdomen was reportedly unremarkable. Blood work: Hemoglobin today 12.3, normal white blood cell count. Platelet count markedly decreased at 71. PT/INR in the past has been normal. Arterial blood gas this morning on BiPAP showed a pH of 7.38, a pCO2 of 35.5, pO2 of 88 on supplemental oxygen at 55%. Chemistry this morning showed slight hyponatremia of 134. Other electrolytes were normal. BUN on admission was 42 and stable today, but this is up from March 11, 2018. Creatinine 1.5, actually improved from 1.8 yesterday and 1.7 March 11, 2018. Fasting glucose this morning 118. Lactic acid levels have been elevated. Serum magnesium level 2.2, Calcium 7.7 with albumin decreased at 2.5. Markedly elevated transaminases and alkaline phosphatase was slightly elevated with normal total bilirubin. CPK was normal with negative MB fraction. Elevated pro-BNP level, as mentioned before. Fasting lipid profile showed a total cholesterol of 109, HDL 57, triglycerides 67, total/HDL ratio 1.9. Ultrasensitive TSH was normal. IMPRESSION/PLAN: 1. Coronary artery disease (zuni vessel)/remote RCA stenting/recurrent non-ST segment elevation myocardial infarction: Patient describes an episode of chest discomfort yesterday with no definite nonanginal features, though the patient does not customarily have chest pain, has subtle repolarization abnormalities but troponin I is slightly increased at 2. I am not surprised that he may have had a small myocardial injury as we would have expected troponin rise even if his coronaries were normal with his reported oxygen saturation on presentation of only 50%. Barnes management to protect his heart would be optimal pulmonary management and controlled supplemental oxygen. Presently on low dose aspirin antiplatelet therapy. Despite his advanced pulmonary disease, had been given at least one dose of metoprolol succinate earlier today, questionable, questionable. Despite his platelet count of only 70,000, having dropped from his admission, he remains on low dose heparin therapy, which I have discontinued. Especially in light of his very guarded pulmonary status, his acute renal insufficiency, and pneumonia, he is definitely not a candidate for invasive intervention. 2. Abnormal EKG: Multiple features in keeping with his pulmonary disease, including possible right ventricular hypertrophy or enlargement, could not rule out a prior inferoposterior infarction, though no such problem was documented on his echocardiogram July 2017. As mentioned above, subtle repolarization abnormalities, not that have changed, not surprisingly, with his marked hypoxia on admission. Despite his severe medical illness, has been free of any significant arrhythmia. We certainly respect his wish to be DO NOT RESUSCITATE (DNR)/DO NOT INTUBATE (DNI). 3. Hypertensive heart disease (benign without heart failure): Effort dyspnea as mentioned above due to his pulmonary disease. No other features to suggest pulmonary congestion clinically. Current blood pressure is well controlled without antihypertensive therapies. With his acute renal insufficiency he is not a candidate for an angiotensin-converting enzyme (MART) inhibitor. Beta rocky therapy is contraindicated, despite his elevated troponin, his pro-BNP level, diuretic therapy will not be administered. 4. Smoking-induced COPD/chronic eucapnic respiratory failure/cor pulmonale/right heart failure: Undoubtedly, his elevated pro-BNP level is related to his right heart, not left heart disease. Again, as mentioned, optimal management would be that of his pulmonary disease with assuring adequate O2 saturation. He is on aggressive bronchodilator, steroid and antibiotic therapy for his pneumonia. His prognosis is guarded due to his pulmonary disease. Our plan would be to follow him briefly with you until Dr. Jonas/Dr. Nathan return on April 02, 2018. SHAWNA
[2018-03-31] MEDS: MIRALAX *UNIT DOSE* 17GM PACKET PO PRN (13:43)
--- NOTE | 2018-03-31 13:46 | ECGEPIP ---
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
[2018-03-31 20:30] LABS: MB/CK RELATIVE INDEX 2.42 (< OR =4); TROPONIN I 1.14 NG/ML (< 0.10)
[2018-04-01] VITALS (9 sets, daily range): BP systolic 100–115; BP diastolic 58–68; O2SAT 85–91
[2018-04-01] MEDS: IPRATROPIUM 0.5MG/ALBUTEROL 2.5MG INH SOL UD 3ML (DUONEB)(J7620) NEB SCH ×4 (01:27→19:35)
[2018-04-01] MEDS: methylPREDNISolone INJ 125 MG/2 ML VIAL (J2930) IV SCH ×3 (03:15→19:16)
[2018-04-01 03:58] LABS: HEMATOCRIT 37.1 % (42.0-52.0); HEMOGLOBIN 12.2 g/dl (13.5-17.5); MEAN CORPUSCULAR HEMOGLOBIN 29.4 pg (27.0-33.0); MEAN CORPUSCULAR HGB CONC 32.9 g/dl (32.0-36.5); MEAN CORPUSCULAR VOLUME 89.4 fl (80.0-96.0); RED BLOOD COUNT 4.15 10^6/uL (4.30-6.10); WHITE BLOOD COUNT 7.9 10^3/uL (4.0-10.0)
[2018-04-01 04:38] LABS: ALBUMIN 2.7 GM/DL (3.2-5.2); ALT/SGPT 2104 U/L (12-78); BLOOD UREA NITROGEN 40 MG/DL (7-18); CALCIUM LEVEL 8.1 MG/DL (8.8-10.2); CARBON DIOXIDE LEVEL 23 MEQ/L (21-32); CHLORIDE LEVEL 105 MEQ/L (98-107); CREATININE FOR GFR 1.05 MG/DL (0.70-1.30); GLOMERULAR FILTRATION RATE > 60.0 (>42); GLUCOSE, FASTING 124 MG/DL (70-100); MAGNESIUM LEVEL 2.1 MG/DL (1.8-2.4); POTASSIUM SERUM 4.3 MEQ/L (3.5-5.1); SODIUM LEVEL 135 MEQ/L (136-145); TOTAL PROTEIN 5.5 GM/DL (6.4-8.2)
[2018-04-01 04:47] LABS: PLATELET COUNT, AUTOMATED 79 10^3/uL (150-450)
[2018-04-01] MEDS: PANTOPRAZOLE 40MG INJ (PROTONIX) (C9113) IV SCH (05:06)
[2018-04-01] MEDS: IMIPENEM/CILASTATIN 500 MG in D5W MINI-BAG PLUS 100 ML IV SCH ×3 (05:07→20:15)
[2018-04-01] MEDS: MORPHINE 30 MG SA TAB PO SCH ×3 (05:07→21:58)
[2018-04-01] MEDS: NS 1,000 ML IV SCH ×2 (08:06→16:18)
[2018-04-01] MEDS: LACTULOSE 20 GM/30 ML SYRUP UD PO SCH ×4 (09:34→23:54)
[2018-04-01] MEDS: oxyBUTYnin *DITROPAN XL* 5 MG TABCR PO SCH (09:36)
[2018-04-01] MEDS: BACLOFEN 10 MG TAB PO SCH ×2 (09:36→20:15)
[2018-04-01] MEDS: ACYCLOVIR 200 MG CAPSULE PO SCH ×3 (09:36→20:15)
[2018-04-01] MEDS: ESCITALOPRAM OXALATE 10 MG TAB (LEXAPRO) PO SCH (09:36)
[2018-04-01] MEDS: SENOKOT S TAB PO SCH ×2 (09:36→20:15)
[2018-04-01] MEDS: GABAPENTIN 300 MG CAP PO SCH (11:35)
--- NOTE | 2018-04-01 12:49 | IPNPDOC ---
Text Note Date of Service The patient was seen on 04/01/18. 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 In the ER patient was found to be hypoxemic, febrile and hypotensive. Patient received IV fluid hydration was placed on BiPAP and antibiotics were started. Patient was admitted to the hospitalist service for further evaluation / treatment. Cardiology and pulmonary were called on consultation. Patient was seen and examined at the bedside. Currently patient notes that her breathing is doing slightly better. He still notes shortness of breath, but denied any significant productive cough. Denied chest pain or palpitations. No nausea, vomiting, abdominal pain, or diarrhea. They do note that the experience constipation. Objective: Vitals (See below) General: Lying in bed, no acute distress, comfortable, AAOx3 HEENT: NC, AT CVS: RRR, +S1S2 Lungs: Fair air entry b/l, -w/r/r Abdomen: Soft, ND, NT Extremities: - Edema, - Calf tenderness Assessment and plan: s/p Severe sepsis - possibly 2/2 community acquired pneumonia - Clinically has improvement in symptoms - Physical unrevealing; no further febrile episodes - WBC count stable; s/p Lactic acidosis - CXR 03/30: Acute left lower lobe infiltrate compatible with pneumonia/atelectasis. - Respiratory panel 03/30: Negative - Blood cultures 03/30: No growth at 24 hours - c/w Levofloxacin & Imipenem/Cilastatin Acute on chronic hypoxic respiratory failure - Hx of COPD on 8-10 liters of oxygen at baseline - c/w Solumedrol; will reduce dose - Dr. Aden on consultation; appreciate their input Elevated troponin - likely 2/2 demand ischemia - Hx of CA 2018 2/2 Sepssi - Hx of CAD s/p stent x3 (2013) - ECHO 07/2017: G1DD, AV sclerosis, Mild TR, Mild pulmonary HTN - c/w ASA - Dr. Isabel on consultation; appreciate their input Transaminitis - possibly 2/2 shock liver - Has been trending down - Physical without abdominal tenderness - US abdomen 03/31: Significant gallbladder wall thickening and small amount of perihepatic ascites. No gallstones or sonographic Randhawa's sign. No biliary ductal dilatation. Chronic medical renal disease without hydronephrosis. Doppler interrogation consistent with cardiac disease. Acute renal failure - likely 2/2 pre-renal etiology - Improving - Avoid nephrotoxic medications - c/w NS Urinary retention - possibly 2/2 constipation - c/w Bladder scans and straight catheterization if >500cc Overactive bladder - Will stop Oxybutynin Constipation - Will start Lactulose and titrate for 1-2 BM daily s/p Hyperkalemia Gout - Resume allopurinol Chronic pain - c/w Baclofen, Gabapentin, Morphine Depression - c/w Escitalopram GI prophylaxis - c/w Protonix DVT prophylaxis - c/w Heparin Code Status: - DNR - Trial of intubation Disposition: - Awaiting clinical improvement VSKailey, I+O VSKailey I+O Laboratory Tests 04/01/18 03:45 Red Blood Count 4.15 L, Mean Corpuscular Volume 89.4, Mean Corpuscular Hemoglobin 29.4, Mean Corpuscular Hemoglobin Concent 32.9, Red Cell Distribution Width 18.6 H, Calcium Level 8.1 L, Aspartate Amino Transf (AST/SGOT) 2314 H, Alanine Aminotransferase (ALT/SGPT) 2104 H, Alkaline Phosphatase 212 H, Total Bilirubin 1.0, Total Protein 5.5 L, Albumin 2.7 L Vital Signs Date Time Temp Pulse Resp B/P (MAP) Pulse Ox O2 Delivery O2 Flow Rate FiO2 04/01/18 07:54 91 04/01/18 07:53 87 Nasal Cannula 25.0 04/01/18 05:07 18 04/01/18 04:00 97.9 115/68 (84) 03/31/18 09:00 55 I&O- Last 24 Hours up to 6 AM 04/01/18 05:59 Intake Total 3400 ml Output Total 1950 ml Balance 1450 ml FATIMAH SAHA MD Apr 01, 2018 12:49
[2018-04-01] MEDS: ALLOPURINOL 300 MG TAB PO SCH (13:51)
[2018-04-01] MEDS: MIRALAX *UNIT DOSE* 17GM PACKET PO PRN (17:20)
--- NOTE | 2018-04-01 20:11 | IPN ---
DATE: 04/01/2018 INDICATION: Cardiology progress note covering for Dr. Jonas/Dr. Nathan SUBJECTIVE: Continues to have episodic dyspnea even at rest despite his controlled supplemental oxygen. No further chest discomfort. Remains unaware of his heart action. Denies any lightheadedness or dizziness. Has been coughing without sputum production. OBJECTIVE: Pleasant elderly male of medium body build lying in bed with the head elevated approximately 45 degrees, wearing supplemental oxygen but appears dyspneic even with communication. Vital signs: Shows heart rate of 90 beats per minute, blood pressure 107/60, respiratory rate 22 with O2 saturation 87% on supplemental oxygen. Afebrile. His weight is stable despite a recorded positive fluid balance the past 2 days. Has fairly diffuse and inspiratory crepitations that appear similar to yesterday with prolonged expiration but no audible wheeze. Heart sounds not audible. Dailey not palpable due to his increased anteroposterior chest configuration. Has no dependent edema. Electrocardiogram monitoring has shown essentially sinus rhythm without significant rhythm disturbance. LABORATORY DATA: Hemoglobin stable at 12.2. White blood cell count remains normal 7.9, platelet count had been dropping on heparin therapy but since this was discontinued yesterday it is not dropped any further measuring 79,000, platelets today. No manifest of bleeding. Chemistry confirms electrolyte balance with stable BUN of 40, creatinine improved from 1.84 on admission to 1.05, fasting glucose 124. Normal magnesium level. Transaminases remain significantly elevated but are virtually half the values they were yesterday. Total bilirubin is normal. His CPK is slightly higher today than on admission with negative MB fraction. Troponin I level is down to 1.1. IMPRESSION/PLAN: 1. Coronary disease (moapa vessel) / remote RCA stenting / recurrent non-Q-wave non-ST elevation IA: Has been free of chest discomfort since his admission. No followup EKG today. Troponin level has decreased. As previously mentioned not a candidate for beta rocky therapy because of his lung disease not a candidate for more low-dose aspirin in light of his thrombocytopenia. Not a candidate for lisinopril in light of his renal insufficiency and current control blood pressure. Certainly not a candidate for any invasive intervention from our standpoint. 2. Abnormal EKG: No followup tracing today. Has been free of any significant rhythm disturbance. Remains a DO NOT RESUSCITATE / DO NOT INTUBATE. 3. Hypertensive heart disease (benign with heart failure): Again his current dyspnea even at rest is his attributed to his advanced pulmonary problems aggravated by recent pneumonitis. Present blood pressure appears controlled without pharmacological therapy. 4. Smoking induced COPD / chronic eucapnic, respiratory failure / cor pulmonale / right heart failure: As mentioned his elevated pro BNP level is believed to be related to right ventricular strain. Neck veins did not appear to be elevated and he has no dependent edema. Optimal management is showing adequate O2 saturation along with his aggressive bronchodilator, steroid and antibiotic therapy. Dr. Jonas/ Dr. Nathan will be resuming his primary cardiology followup tomorrow.
[2018-04-01] MEDS: ASPIRIN 81 MG ENTERIC TAB PO SCH (20:15)
[2018-04-01] MEDS: LevoFLOXacin IV 750 MG in APPROPRIATE DILUENT 1 EA IV SCH (23:54)
[2018-04-02] VITALS (7 sets, daily range): BP systolic 102–156; BP diastolic 63–80; O2SAT 89
[2018-04-02] MEDS: IPRATROPIUM 0.5MG/ALBUTEROL 2.5MG INH SOL UD 3ML (DUONEB)(J7620) NEB SCH ×4 (02:13→20:08)
[2018-04-02] MEDS: methylPREDNISolone INJ 125 MG/2 ML VIAL (J2930) IV SCH ×2 (02:51→15:20)
[2018-04-02] MEDS: IMIPENEM/CILASTATIN 500 MG in D5W MINI-BAG PLUS 100 ML IV SCH ×2 (04:04→13:16)
[2018-04-02] MEDS: NS 1,000 ML IV SCH ×2 (04:04→16:13)
[2018-04-02] MEDS: LACTULOSE 20 GM/30 ML SYRUP UD PO SCH (04:34)
[2018-04-02 04:54] LABS: HEMATOCRIT 36.2 % (42.0-52.0); HEMOGLOBIN 11.7 g/dl (13.5-17.5); MEAN CORPUSCULAR HEMOGLOBIN 29.3 pg (27.0-33.0); MEAN CORPUSCULAR HGB CONC 32.3 g/dl (32.0-36.5); MEAN CORPUSCULAR VOLUME 90.5 fl (80.0-96.0); WHITE BLOOD COUNT 10.3 10^3/uL (4.0-10.0)
[2018-04-02 04:55] LABS: PLATELET COUNT, AUTOMATED 69 10^3/uL (150-450)
[2018-04-02 05:10] LABS: ALBUMIN 2.7 GM/DL (3.2-5.2); ALT/SGPT 1935 U/L (12-78); BILIRUBIN,TOTAL 1.1 MG/DL (0.2-1.0); BLOOD UREA NITROGEN 33 MG/DL (7-18); CALCIUM LEVEL 7.9 MG/DL (8.8-10.2); CARBON DIOXIDE LEVEL 26 MEQ/L (21-32); CHLORIDE LEVEL 104 MEQ/L (98-107); CREATININE FOR GFR 0.99 MG/DL (0.70-1.30); GLOMERULAR FILTRATION RATE > 60.0 (>42); GLUCOSE, FASTING 103 MG/DL (70-100); MAGNESIUM LEVEL 1.9 MG/DL (1.8-2.4); POTASSIUM SERUM 4.9 MEQ/L (3.5-5.1); SODIUM LEVEL 137 MEQ/L (136-145); TOTAL PROTEIN 5.6 GM/DL (6.4-8.2)
[2018-04-02] MEDS: PANTOPRAZOLE 40MG INJ (PROTONIX) (C9113) IV SCH (05:36)
[2018-04-02] MEDS: MORPHINE 30 MG SA TAB PO SCH ×3 (05:37→21:22)
--- NOTE | 2018-04-02 05:54 | ECHO ---
DATE OF PROCEDURE: 03/31/2018 AGE: 72 GENDER: Male REFERRING PHYSICIAN: Dr. Dirk Zamora. HEIGHT: 69 inches. WEIGHT: 169 pounds. BODY SURFACE AREA: 1.92 sq m. INPATIENT: Intensive care unit (ICU) Room 3201 INDICATION: Dyspnea. MEASUREMENTS: 2D MEASUREMENTS: RV - 4.4 cm LV- 4.3 cm Septum - 1.1 cm Posterior wall - 1.0 cm Aortic root - 3.3 cm LA - 3.7 cm LVEF - 45-50% DOPPLER MEASUREMENTS: AV - 0.97 m/s LVOT - 0.95 m/s LVOT - 2.2 cm MV-E: 49 A: 63 EA ratio 0.8 Early mitral deacceleration time - 232 ms E-prime - 4 A-prime - 6 E/E prime ratio 12 PCWP - 14 mmHg PV - 0.6 m/s Pulmonary artery acceleration time - 67 ms RVSP - 71 mmHg IVC - 2.5 cm COMMENTS: Normal sinus rhythm without intraventricular conduction disturbance. Technically difficult study in light of the patient's advanced pulmonary disease but some diagnostically useful information was still obtained. M-mode and two-dimensional echocardiography was performed with pulsed, continuous wave, color flow and tissue Doppler studies. Normal left ventricular size and wall thickness with obvious septal wall motion abnormality related to right ventricular pressure overload. Resulting in a mild degree of global left ventricular systolic impairment. Borderline left atrial enlargement with Doppler evidence of an impairment of LV diastolic function but currently normal estimated mean left atrial pressure. Moderately dilated right heart chambers with hypokinesis of the right ventricular free wall and Doppler evidence of severe pulmonary hypertension. Moderately dilated IVC with reduced respiratory collapse in keeping with an elevated central venous pressure/right heart failure. Moderate aortic valvular sclerosis without stenosis and no more than trace insufficiency. Mild mitral annular calcification without functional valvular abnormality. With severe insufficiency likely related to tricuspid valve annular dilatation with right ventricular enlargement. No apparent intracardiac mass or pericardial effusion. Normal aortic root size.
[2018-04-02] MEDS: ACYCLOVIR 200 MG CAPSULE PO SCH ×3 (08:13→21:17)
[2018-04-02] MEDS: BACLOFEN 10 MG TAB PO SCH ×2 (08:14→21:17)
[2018-04-02] MEDS: ALLOPURINOL 300 MG TAB PO SCH (08:14)
[2018-04-02] MEDS: SENOKOT S TAB PO SCH ×2 (09:00→21:00)
[2018-04-02] MEDS ORDERED: ISOVUE-370 76% 100ML VIAL (Q9967) As Ordered ONE (10:58)
[2018-04-02] MEDS: ESCITALOPRAM OXALATE 10 MG TAB (LEXAPRO) PO SCH (11:27)
[2018-04-02] MEDS: GABAPENTIN 300 MG CAP PO SCH (11:27)
[2018-04-02] MEDS ORDERED: LACTULOSE 20 GM/30 ML SYRUP UD PO PRN (12:00)
--- NOTE | 2018-04-02 13:28 | IPNPDOC ---
Text Note Date of Service The patient was seen on 04/02/18. 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 In the ER patient was found to be hypoxemic, febrile and hypotensive. Patient received IV fluid hydration was placed on BiPAP and antibiotics were started. Patient was admitted to the hospitalist service for further evaluation / treatment. Cardiology and pulmonary were called on consultation. Patient was seen and examined at the bedside. Patient continues to experience shortness of breath. Is still requiring 25L of high flow nasal cannula oxygen. Denies chest pain or palpitations. Denies any N/V, abdominal pain, C/D. Objective: Vitals (See below) General: Lying in bed, no acute distress, comfortable, AAOx3 HEENT: NC, AT CVS: RRR, +S1S2 Lungs: Fair air entry b/l, no evidence of wheezing, rhonchi or rales Abdomen: Soft, nondistended, without tenderness Extremities: No evidence of lower extremity edema, - Calf tenderness Assessment and plan: s/p Severe sepsis - possibly 2/2 community acquired pneumonia - Clinically has improvement in symptoms - Physical unrevealing; no further febrile episodes - WBC count stable; s/p Lactic acidosis - CXR 03/30: Acute left lower lobe infiltrate compatible with pneumonia/atelectasis. - Respiratory panel 03/30: Negative - Blood cultures 03/30: No growth at 48 hours - c/w Levofloxacin & Imipenem/Cilastatin Acute on chronic hypoxic respiratory failure - Hx of COPD on 8-10 liters of oxygen at baseline - c/w Solumedrol; c/w current dose - Will get CTA chest to evaluate for possible PE Elevated troponin - likely 2/2 demand ischemia - Hx of [place] 2017 2/2 Sepsis - Hx of CAD s/p stent x3 (2013) - ECHO 07/2017: G1DD, AV sclerosis, Mild TR, Mild pulmonary HTN - c/w ASA - Dr. Isabel on consultation; appreciate their input Transaminitis - possibly 2/2 shock liver - Has been trending down - Physical without abdominal tenderness - US abdomen 03/31: Significant gallbladder wall thickening and small amount of perihepatic ascites. No gallstones or sonographic Randhawa's sign. No biliary ductal dilatation. Chronic medical renal disease without hydronephrosis. Doppler interrogation consistent with cardiac disease. Acute renal failure - likely 2/2 pre-renal etiology - Improving - Avoid nephrotoxic medications - c/w NS Overactive bladder -s/p Oxybutynin s/p Urinary retention - possibly 2/2 constipation - c/w Bladder scans and straight catheterization if >500cc s/p Constipation - c/w Lactulose; will change to PRN s/p Hyperkalemia Gout - Resume allopurinol Chronic pain - c/w Baclofen, Gabapentin, Morphine Depression - c/w Escitalopram GI prophylaxis - c/w Protonix DVT prophylaxis - c/w Heparin Code Status: - DNR - Trial of intubation Disposition: - Awaiting clinical improvement VS,Kailey, I+O VS, Kailey, I+O Laboratory Tests 04/02/18 04:20 Red Blood Count 4.00 L, Mean Corpuscular Volume 90.5, Mean Corpuscular Hemoglobin 29.3, Mean Corpuscular Hemoglobin Concent 32.3, Red Cell Distribution Width 18.9 H, Calcium Level 7.9 L, Aspartate Amino Transf (AST/SGOT) 1387 H, Alanine Aminotransferase (ALT/SGPT) 1935 H, Alkaline Phosphatase 196 H, Total Bilirubin 1.1 H, Total Protein 5.6 L, Albumin 2.7 L Vital Signs Date Time Temp Pulse Resp B/P (MAP) Pulse Ox O2 Delivery O2 Flow Rate FiO2 04/02/18 13:16 19 04/02/18 08:00 99.0 83 120/68 (85) 89 Comfort Flow 25.0 03/31/18 09:00 55 I&O- Last 24 Hours up to 6 AM 04/02/18 06:00 Intake Total 4620 ml Output Total 1850 ml Balance 2770 ml FATIMAH SAHA MD Apr 02, 2018 13:28
--- NOTE | 2018-04-02 13:44 | REP ---
CT pulmonary angiogram: With IV contrast. History: Hypoxia. Comparison studies: September 20, 2017. Contrast dose: 75 mL of Isovue [address] technique: Helical scanning is acquired and overlapping 1.5 mm and contiguous 3 mm axial images are reformatted. In addition, maximum intensity projection and multiplanar re-formation images are generated in sagittal and coronal imaging projections. CT pulmonary angiographic findings: There is good opacification of the pulmonary arterial tree. There is no CT evidence of pulmonary embolus on axial or maximum intensity projection or multiplanar reformation images. No filling defect or vessel cutoff seen. The thoracic aorta is tortuous and calcific but no evidence of aneurysm or dissection is seen. There is no evidence of pleural or pericardial effusion. Bilateral coronary artery calcification is seen. There is an area of dense consolidation in the left lower lobe consistent with pneumonia. There are air bronchograms. There is a peripheral rounded area of parenchymal opacification in the right lower lobe which is similar to its appearance on the September 20, 2017 prior study. This contains an area of calcification. This may be spiral atelectasis. No other new area of infiltrate is seen. Impression: Left lower lobe infiltrate consistent with pneumonia. Stable pleuroparenchymal opacity right lower lobe which may be spiral atelectasis. No CT evidence of pulmonary embolism. Stable pretracheal mediastinal lymph nodes unchanged from September 20, 2017. Electronically Signed by Erik Jose MD 04/02/2018 06:51 P
[2018-04-02 14:08] LABS: C REACTIVE PROTEIN QUANTITATIV 8.04 MG/DL (0.00-0.30)
[2018-04-02] MEDS: MEROPENEM INJ 1 GM in APPROPRIATE DILUENT 1 EA IV SCH (17:39)
[2018-04-02] MEDS: ASPIRIN 81 MG ENTERIC TAB PO SCH (21:17)
[2018-04-03] VITALS (9 sets, daily range): BP systolic 103–146; BP diastolic 57–79; O2SAT 85–91
[2018-04-03] MEDS: NS 1,000 ML IV SCH (00:16)
[2018-04-03] MEDS: MEROPENEM INJ 1 GM in APPROPRIATE DILUENT 1 EA IV SCH ×3 (01:58→18:00)
[2018-04-03] MEDS: methylPREDNISolone INJ 125 MG/2 ML VIAL (J2930) IV SCH ×2 (01:58→14:30)
[2018-04-03] MEDS: IPRATROPIUM 0.5MG/ALBUTEROL 2.5MG INH SOL UD 3ML (DUONEB)(J7620) NEB SCH ×4 (02:04→19:47)
[2018-04-03 04:27] LABS: HEMATOCRIT 37.9 % (42.0-52.0); HEMOGLOBIN 12.4 g/dl (13.5-17.5); MEAN CORPUSCULAR HEMOGLOBIN 29.1 pg (27.0-33.0); MEAN CORPUSCULAR HGB CONC 32.7 g/dl (32.0-36.5); PLATELET COUNT, AUTOMATED 64 10^3/uL (150-450); RED BLOOD COUNT 4.26 10^6/uL (4.30-6.10); WHITE BLOOD COUNT 7.8 10^3/uL (4.0-10.0)
[2018-04-03 04:50] LABS: ALBUMIN 2.7 GM/DL (3.2-5.2); ALT/SGPT 1792 U/L (12-78); BILIRUBIN,TOTAL 1.4 MG/DL (0.2-1.0); BLOOD UREA NITROGEN 26 MG/DL (7-18); C REACTIVE PROTEIN QUANTITATIV 9.53 MG/DL (0.00-0.30); CALCIUM LEVEL 8.4 MG/DL (8.8-10.2); CARBON DIOXIDE LEVEL 29 MEQ/L (21-32); CHLORIDE LEVEL 104 MEQ/L (98-107); CREATININE FOR GFR 0.95 MG/DL (0.70-1.30); GLOMERULAR FILTRATION RATE > 60.0 (>42); GLUCOSE, FASTING 109 MG/DL (70-100); POTASSIUM SERUM 5.2 MEQ/L (3.5-5.1); SODIUM LEVEL 137 MEQ/L (136-145); TOTAL PROTEIN 5.9 GM/DL (6.4-8.2)
[2018-04-03] MEDS: PANTOPRAZOLE 40MG INJ (PROTONIX) (C9113) IV SCH (06:02)
[2018-04-03] MEDS: MORPHINE 30 MG SA TAB PO SCH ×3 (06:03→21:20)
[2018-04-03 07:49] LABS: NT-PRO BNP 6045 PG/ML (<125)
[2018-04-03] MEDS ORDERED: FUROSEMIDE 40 MG/4 ML VIAL (J1940) IV ONE (08:00)
[2018-04-03] MEDS: ACYCLOVIR 200 MG CAPSULE PO SCH ×3 (09:00→21:20)
[2018-04-03] MEDS: BACLOFEN 10 MG TAB PO SCH ×2 (09:00→21:20)
[2018-04-03] MEDS: SENOKOT S TAB PO SCH ×2 (09:00→21:20)
[2018-04-03] MEDS: ALLOPURINOL 300 MG TAB PO SCH (09:00)
[2018-04-03] MEDS: ESCITALOPRAM OXALATE 10 MG TAB (LEXAPRO) PO SCH (09:00)
--- NOTE | 2018-04-03 09:14 | IPN ---
DATE OF SERVICE: 04/02/2018 Mr. Gerda Whatley was seen in the evening of 04/02/2018, he is still in intensive care unit (ICU) bed 9. He was sitting in bed, no acute distress at rest and his nurse as well as a family member were at bedside. He is feeling slowly better. He denies any chest pain and he has not had any more shortness of breath than usual for him. He has no palpitations. He has no focal manifestation. There is no report of bleeding. He was recently admitted on 03/31/2018 and was seen on cardiology consult by Dr. Malik Isabel, who was covering for the holidays, because of abnormal serum troponin. Echocardiogram done on 03/31/2018 revealed a mildly depressed global left function. He was found at home on the floor very weak and markedly hypoxemic. He was in respiratory failure and he was managed noninvasively. He has a DO NOT RESUSCITATE and DO NOT INTUBATE status. He has not been able to receive treatment for his underlying coronary artery disease (CAD) because of his thrombocytopenia and he was hypotensive. He also had underlying chronic obstructive pulmonary disease (COPD) and severe lung disease and beta rocky was not started. He however has been doing well with treatment of his underlying lung disease. His blood pressure is now stable and his oxygen saturation was about 92% when I was at bedside. On physical examination, patient is alert, oriented, in no acute distress at rest but is short of breath. His vital signs when I was at bedside revealed a blood pressure of 135/68 with a pulse of 81, respirations 16 and his maximum temperature was 97.9 degrees Fahrenheit with oxygen saturation of 92% when I was at bedside on Comfort Adolfo at 30 liters a minute. He has a positive fluid balance of 2.4 liters for 04/01/2018. For 03/31/2018, he had a positive fluid balance of 2.9 liters. Examination of the head: Atraumatic. Neck is supple with extended external jugular. Lungs reveal bilateral dry crackles but no wheezing. Heart examination revealed normal S1 without gallops. PMI is slightly displaced inferiorly. There is no rub. I could not appreciate any murmurs. Abdomen is soft. Extremities reveal trace bilateral lower leg and ankle edema. Neurological examination is negative for focal deficit. LABS: CBC done today reveals a WBC of 10.3, hemoglobin 11.7, hematocrit 36.2 and platelets 69,000. BMP revealed a sodium of 137, potassium 4.9, chloride 104, CO2 26, BUN 33, creatinine 0.99, glomerular filtration rate more than 60. Fasting glucose 103, calcium 7.9. Magnesium is 1.9. Liver enzymes revealed a total bilirubin of 1.1, AST 1387, ALT 1935, alkaline phosphatase is 196. Total protein 5.6. Albumin 2.7. Telemetry was reviewed and revealed normal sinus rhythm with ST-T abnormalities. CT angiogram today 04/02/2018 revealed left lower lobe infiltrate consistent with pneumonia, no evidence of pulmonary embolism. No significant changes from prior study on 09/20/2017. Coronary artery calcification was noted. The thoracic aorta was tortuous and calcific but no evidence of aneurysm or dissection. IMPRESSION: 1. Abnormal serum troponin and this may be related to underlying type 2 myocardial infarction (NE) but he does have underlying coronary artery disease. He however has been asymptomatic and I will monitor him along with you on current meds. As mentioned above, he has not been able to receive any doron inhibitor, or beta rocky, or anticoagulation therapy. He is currently on a baby aspirin. He is not on a statin because of the abnormalities. 2. Coronary artery disease, patient did have a negative nuclear stress test earlier this year prior to his most recent surgery. 3. History of chronic obstructive pulmonary disease (COPD) and interstitial lung disease/pulmonary fibrosis. Oxygen dependent, on nasal cannula at 6 liters per minute continuously at home prior to this admission. 4. History of hyperlipidemia. 5. Cardiomyopathy, newly diagnosed with an ejection fraction of 45% by the most recent echocardiogram reported by Dr. Isabel. 6. Pneumonia, and this is being addressed. Status post respiratory failure. It was a pleasure to participate in the care of Mr. Gerda Whatley for his underlying cardiac condition. I will continue to follow along with you. Please do not hesitate to call if any questions.
--- NOTE | 2018-04-03 11:24 | IPNPDOC ---
Text Note Date of Service The patient was seen on 04/03/18. 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 In the ER patient was found to be hypoxemic, febrile and hypotensive. Patient received IV fluid hydration was placed on BiPAP and antibiotics were started. Patient was admitted to the hospitalist service for further evaluation / treatment. Cardiology and pulmonary were called on consultation. Patient was seen and examined at the bedside. Currently, patient was sitting up in chair eating breakfast. He denies any chest pain or palpitations. Still notes difficulty breathing. . He was ambulating yesterday and did not experience that much shortness of breath with exertion. Patient denies nausea, vomiting, abdominal pain, constipation or diarrhea. Objective: Vitals (See below) General: Lying in bed, no acute distress, comfortable, AAOx3 HEENT: NC, AT CVS: RRR, +S1S2 Lungs: Fair air entry b/l, there is mild crackles that can be appreciated at bilateral lung jacinto. There are no wheezing or rhonchi Abdomen: Soft, nondistended, without tenderness Extremities: 1+ pitting edema bilateral lower extremities, - Calf tenderness Assessment and plan: s/p Severe sepsis - possibly 2/2 community acquired pneumonia - Clinically has improvement in symptoms - Physical unrevealing; no further febrile episodes - WBC count stable; s/p Lactic acidosis - CXR 03/30: Acute left lower lobe infiltrate compatible with pneumonia/atelectasis. - Respiratory panel 03/30: Negative; MRSA screen: Pending - Blood cultures 03/30: No growth at 72 hours - c/w Levofloxacin & Meropenem (Day #4) Acute on chronic hypoxic respiratory failure- possibly 2/2 above, possibly 2/2 fluid overload 2/2 decompensated diastolic CHF - Hx of COPD on 8-10 liters of oxygen at baseline - ECHO 03/31: Impaired diastolic function, severe pulmonary hypertension, elevated CVP - c/w Solumedrol; c/w current dose - CTA 04/02: Left lower lobe infiltrate consistent with pneumonia. Stable pleuroparenchymal opacity right lower lobe which may be spiral atelectasis. No CT evidence of pulmonary embolism. Stable pretracheal mediastinal lymph nodes unchanged from September 20, 2017. - Strict ins/outs, daily weights - Patient has received Furosemide 40 IV and has had significant diuresis; will continue with furosemide 40 IV daily Elevated troponin - likely 2/2 demand ischemia - Hx of [place] 2017 2/2 Sepsis - Hx of CAD s/p stent x3 (2013) - c/w ASA - Dr. Isabel on consultation; appreciate their input Transaminitis - possibly 2/2 shock liver - Has been trending down - Physical without abdominal tenderness - US abdomen 03/31: Significant gallbladder wall thickening and small amount of perihepatic ascites. No gallstones or sonographic Randhawa's sign. No biliary ductal dilatation. Chronic medical renal disease without hydronephrosis. Doppler interrogation consistent with cardiac disease. Acute renal failure - likely 2/2 pre-renal etiology - Improving - Avoid nephrotoxic medications - c/w NS Overactive bladder -s/p Oxybutynin s/p Urinary retention - possibly 2/2 constipation - c/w Bladder scans and straight catheterization if >500cc s/p Constipation - c/w Lactulose; will change to PRN s/p Hyperkalemia Gout - c/w allopurinol Chronic pain - c/w Baclofen, Gabapentin, Morphine Depression - c/w Escitalopram GI prophylaxis - c/w Protonix DVT prophylaxis - c/w Heparin Code Status: - DNR / DNI Disposition: - Awaiting clinical improvement - c/w Diuresis (Re: positive fluid balance) VS,Fishbone, I+O VS, Fishbone, I+O Laboratory Tests 04/03/18 04:08 Red Blood Count 4.26 L, Mean Corpuscular Volume 89.0, Mean Corpuscular Hemoglobin 29.1, Mean Corpuscular Hemoglobin Concent 32.7, Red Cell Distribution Width 19.0 H, Calcium Level 8.4 L, Aspartate Amino Transf (AST/SGOT) 961 H, Reji ine Aminotransferase (ALT/SGPT) 1792 H, Alkaline Phosphatase 194 H, Total Bilirubin 1.4 H, Total Protein 5.9 L, Albumin 2.7 L Vital Signs Date Time Temp Pulse Resp B/P (MAP) Pulse Ox O2 Delivery O2 Flow Rate FiO2 04/03/18 10:00 95 14 91 Comfort Flow 25.0 04/03/18 08:00 97.7 143/79 (100) 03/31/18 09:00 55 I&O- Last 24 Hours up to 6 AM 04/03/18 06:00 Intake Total 2895 ml Output Total 3075 ml Balance -180 ml FATIMAH SAHA MD Apr 03, 2018 11:24
[2018-04-03] MEDS: MIRALAX *UNIT DOSE* 17GM PACKET PO PRN (12:08)
[2018-04-03] MEDS: GABAPENTIN 300 MG CAP PO SCH (12:08)
[2018-04-03] MEDS: ASPIRIN 81 MG ENTERIC TAB PO SCH (21:20)
[2018-04-04] VITALS (8 sets, daily range): BP systolic 117–158; BP diastolic 56–74; O2SAT 92–93
[2018-04-04] MEDS: LevoFLOXacin IV 750 MG in APPROPRIATE DILUENT 1 EA IV SCH (00:16)
[2018-04-04] MEDS: methylPREDNISolone INJ 125 MG/2 ML VIAL (J2930) IV SCH ×2 (01:55→14:26)
[2018-04-04] MEDS: MEROPENEM INJ 1 GM in APPROPRIATE DILUENT 1 EA IV SCH ×3 (01:55→18:06)
[2018-04-04] MEDS: IPRATROPIUM 0.5MG/ALBUTEROL 2.5MG INH SOL UD 3ML (DUONEB)(J7620) NEB SCH ×4 (02:15→20:19)
[2018-04-04 04:42] LABS: HEMATOCRIT 36.6 % (42.0-52.0); HEMOGLOBIN 12.3 g/dl (13.5-17.5); MEAN CORPUSCULAR HEMOGLOBIN 29.5 pg (27.0-33.0); MEAN CORPUSCULAR HGB CONC 33.6 g/dl (32.0-36.5); MEAN CORPUSCULAR VOLUME 87.8 fl (80.0-96.0); RED BLOOD COUNT 4.17 10^6/uL (4.30-6.10); WHITE BLOOD COUNT 7.4 10^3/uL (4.0-10.0)
[2018-04-04 04:43] LABS: PLATELET COUNT, AUTOMATED 75 10^3/uL (150-450)
[2018-04-04] MEDS: MORPHINE 30 MG SA TAB PO SCH ×3 (05:05→21:11)
[2018-04-04] MEDS: PANTOPRAZOLE 40MG INJ (PROTONIX) (C9113) IV SCH (05:05)
[2018-04-04 05:30] LABS: ALBUMIN 2.3 GM/DL (3.2-5.2); ALT/SGPT 1406 U/L (12-78); BILIRUBIN,TOTAL 1.3 MG/DL (0.2-1.0); BLOOD UREA NITROGEN 27 MG/DL (7-18); C REACTIVE PROTEIN QUANTITATIV 5.33 MG/DL (0.00-0.30); CALCIUM LEVEL 8.1 MG/DL (8.8-10.2); CARBON DIOXIDE LEVEL 31 MEQ/L (21-32); CHLORIDE LEVEL 104 MEQ/L (98-107); CREATININE FOR GFR 0.68 MG/DL (0.70-1.30); GLOMERULAR FILTRATION RATE > 60.0 (>42); GLUCOSE, FASTING 109 MG/DL (70-100); POTASSIUM SERUM 3.7 MEQ/L (3.5-5.1); SODIUM LEVEL 141 MEQ/L (136-145); TOTAL PROTEIN 5.3 GM/DL (6.4-8.2)
[2018-04-04] MEDS ORDERED: FUROSEMIDE 40 MG/4 ML VIAL (J1940) IV ONE (08:00)
[2018-04-04] MEDS: ESCITALOPRAM OXALATE 10 MG TAB (LEXAPRO) PO SCH (09:11)
[2018-04-04] MEDS: ALLOPURINOL 300 MG TAB PO SCH (09:11)
[2018-04-04] MEDS: ACYCLOVIR 200 MG CAPSULE PO SCH ×3 (09:12→21:10)
[2018-04-04] MEDS: SENOKOT S TAB PO SCH ×2 (09:12→21:10)
[2018-04-04] MEDS: BACLOFEN 10 MG TAB PO SCH ×2 (09:12→21:10)
[2018-04-04] MEDS: MIRALAX *UNIT DOSE* 17GM PACKET PO PRN (11:55)
[2018-04-04] MEDS: GABAPENTIN 300 MG CAP PO SCH (11:56)
--- NOTE | 2018-04-04 14:55 | IPNPDOC ---
Text Note Date of Service The patient was seen on 04/04/18. 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 In the ER patient was found to be hypoxemic, febrile and hypotensive. Patient received IV fluid hydration was placed on BiPAP and antibiotics were started. Patient was admitted to the hospitalist service for further evaluation / treatment. Cardiology and pulmonary were called on consultation. Patient was seen and examined at the bedside. Patient is still requiring high amounts of oxygen. Reports that his breathing is relatively unchanged. Denies any significant cough. Denies chest pain or palpitations. Denies nausea, vomiting, abdominal pain, constipation, diarrhea or discomfort with urination. Objective: Vitals (See below) General: Lying in bed, no acute distress, comfortable, AAOx3 HEENT: NC, AT CVS: RRR, +S1S2 Lungs: Fair air entry b/l, no appreciable wheezing, rales or rhonchi Abdomen: Soft, nondistended, without tenderness Extremities: 1+ pitting edema bilateral lower extremities (L>R), - Calf tenderness Assessment and plan: s/p Severe sepsis - possibly 2/2 community acquired pneumonia - Still complains of some shortness of breath - Remains afebrile - WBC count stable; s/p Lactic acidosis - CXR 03/30: Acute left lower lobe infiltrate compatible with pneumonia/atelectasis. - Respiratory panel 03/30: Negative; MRSA screen: Negative - Blood cultures 03/30: No growth at 72 hours - c/w Levofloxacin & Meropenem (Day #5) Acute on chronic hypoxic respiratory failure - possibly 2/2 above, possibly 2/2 fluid overload 2/2 decompensated diastolic CHF - Hx of COPD on 8-10 liters of oxygen at baseline - ECHO 03/31: Impaired diastolic function, severe pulmonary hypertension, elevated CVP - c/w Solumedrol; c/w current dose - CTA 04/02: Left lower lobe infiltrate consistent with pneumonia. Stable pleuroparenchymal opacity right lower lobe which may be spiral atelectasis. No CT evidence of pulmonary embolism. Stable pretracheal mediastinal lymph nodes unchanged from September 20, 2017. - Strict ins/outs, daily weights - Will c/w Furosemide 40 IV daily Elevated troponin - likely 2/2 demand ischemia - Hx of [place] 2017 2/2 Sepsis - Hx of CAD s/p stent x3 (2013) - c/w ASA - Dr. Isabel on consultation; appreciate their input Transaminitis - possibly 2/2 shock liver - Has been trending down - Physical without abdominal tenderness - US abdomen 03/31: Significant gallbladder wall thickening and small amount of perihepatic ascites. No gallstones or sonographic Randhawa's sign. No biliary ductal dilatation. Chronic medical renal disease without hydronephrosis. Doppler interrogation consistent with cardiac disease. Acute renal failure - likely 2/2 pre-renal etiology - Improving - Avoid nephrotoxic medications - c/w NS Overactive bladder -s/p Oxybutynin s/p Urinary retention - possibly 2/2 constipation - c/w Bladder scans and straight catheterization if >500cc s/p Constipation - c/w Lactulose; will change to PRN s/p Hyperkalemia Gout - c/w allopurinol Chronic pain - c/w Baclofen, Gabapentin, Morphine Depression - c/w Escitalopram GI prophylaxis - c/w Protonix DVT prophylaxis - c/w Heparin Code Status: - DNR / DNI Disposition: - Awaiting clinical improvement - c/w Diuresis (Re: positive fluid balance) VS,Fishbone, I+O VS, Fishbone, I+O Laboratory Tests 04/04/18 04:06 Red Blood Count 4.17 L, Mean Corpuscular Volume 87.8, Mean Corpuscular Hemoglobin 29.5, Mean Corpuscular Hemoglobin Concent 33.6, Red Cell Distribution Width 18.6 H, Calcium Level 8.1 L, Aspartate Amino Transf (AST/SGOT) 504 H, Alanine Aminotransferase (ALT/SGPT) 1406 H, Alkaline Phosphatase 167 H, Total Bilirubin 1.3 H, Total Protein 5.3 L, Albumin 2.3 L Vital Signs Date Time Temp Pulse Resp B/P (MAP) Pulse Ox O2 Delivery O2 Flow Rate FiO2 04/04/18 14:26 16 04/04/18 08:00 30.0 04/04/18 08:00 97.1 68 138/63 (88) 68 Comfort Flow 03/31/18 09:00 55 I&O- Last 24 Hours up to 6 AM 04/04/18 05:59 Intake Total 1535 ml Output Total 5075 ml Balance -3540 ml FATIMAH SAHA MD Apr 04, 2018 14:55
[2018-04-04] MEDS: ASPIRIN 81 MG ENTERIC TAB PO SCH (21:10)
[2018-04-05] VITALS (7 sets, daily range): BP systolic 118–142; BP diastolic 58–67; O2SAT 88
[2018-04-05] MEDS: MEROPENEM INJ 1 GM in APPROPRIATE DILUENT 1 EA IV SCH (01:04)
[2018-04-05] MEDS: methylPREDNISolone INJ 125 MG/2 ML VIAL (J2930) IV SCH ×2 (02:04→15:43)
[2018-04-05] MEDS: IPRATROPIUM 0.5MG/ALBUTEROL 2.5MG INH SOL UD 3ML (DUONEB)(J7620) NEB SCH ×4 (03:22→19:34)
[2018-04-05 05:03] LABS: HEMOGLOBIN 13.1 g/dl (13.5-17.5); MEAN CORPUSCULAR HEMOGLOBIN 28.5 pg (27.0-33.0); MEAN CORPUSCULAR HGB CONC 32.8 g/dl (32.0-36.5); MEAN CORPUSCULAR VOLUME 87.1 fl (80.0-96.0); RED BLOOD COUNT 4.59 10^6/uL (4.30-6.10); WHITE BLOOD COUNT 7.1 10^3/uL (4.0-10.0)
[2018-04-05 05:04] LABS: PLATELET COUNT, AUTOMATED 74 10^3/uL (150-450)
[2018-04-05 05:20] LABS: ALBUMIN 2.4 GM/DL (3.2-5.2); ALT/SGPT 1131 U/L (12-78); BILIRUBIN,TOTAL 1.5 MG/DL (0.2-1.0); BLOOD UREA NITROGEN 30 MG/DL (7-18); C REACTIVE PROTEIN QUANTITATIV 2.98 MG/DL (0.00-0.30); CALCIUM LEVEL 8.1 MG/DL (8.8-10.2); CARBON DIOXIDE LEVEL 34 MEQ/L (21-32); CHLORIDE LEVEL 99 MEQ/L (98-107); CREATININE FOR GFR 0.73 MG/DL (0.70-1.30); GLOMERULAR FILTRATION RATE > 60.0 (>42); GLUCOSE, FASTING 118 MG/DL (70-100); MAGNESIUM LEVEL 1.9 MG/DL (1.8-2.4); POTASSIUM SERUM 3.6 MEQ/L (3.5-5.1); SODIUM LEVEL 139 MEQ/L (136-145); TOTAL PROTEIN 5.3 GM/DL (6.4-8.2)
[2018-04-05] MEDS: PANTOPRAZOLE 40MG INJ (PROTONIX) (C9113) IV SCH (06:08)
[2018-04-05] MEDS: MORPHINE 30 MG SA TAB PO SCH ×3 (06:09→21:25)
[2018-04-05] MEDS: ALLOPURINOL 300 MG TAB PO SCH (08:54)
[2018-04-05] MEDS: FUROSEMIDE 40 MG/4 ML VIAL (J1940) IV SCH ×2 (08:55→16:43)
[2018-04-05] MEDS: ESCITALOPRAM OXALATE 10 MG TAB (LEXAPRO) PO SCH (08:55)
[2018-04-05] MEDS: ACYCLOVIR 200 MG CAPSULE PO SCH ×3 (08:55→21:24)
[2018-04-05] MEDS: SENOKOT S TAB PO SCH ×2 (08:55→21:24)
[2018-04-05] MEDS: BACLOFEN 10 MG TAB PO SCH ×2 (08:55→21:24)
[2018-04-05] MEDS: GABAPENTIN 300 MG CAP PO SCH (11:37)
[2018-04-05] MEDS: MIRALAX *UNIT DOSE* 17GM PACKET PO PRN (11:37)
--- NOTE | 2018-04-05 13:03 | IPNPDOC ---
Text Note Date of Service The patient was seen on 04/05/18. 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 In the ER patient was found to be hypoxemic, febrile and hypotensive. Patient received IV fluid hydration was placed on BiPAP and antibiotics were started. Patient was admitted to the hospitalist service for further evaluation / treatment. Cardiology and pulmonary were called on consultation. Patient was seen and examined at the bedside. Patient has continued to have good diuresis. Denies any CP or palpitations. Still requiring high amounts of supplemental oxygen. Denies any abdominal pain, constipation, diarrhea or urinary discomfort. Objective: Vitals (See below) General: Lying in bed, no acute distress, comfortable, AAOx3 HEENT: NC, AT CVS: RRR, +S1S2 Lungs: Fair air entry b/l, no appreciable wheezing, rales or rhonchi Abdomen: Soft, nondistended, without tenderness Extremities: 1+ pitting edema bilateral lower extremities (L>R), - Calf tenderness Assessment and plan: s/p Severe sepsis - possibly 2/2 community acquired pneumonia - Still requiring supplemental oxygen - Remains afebrile - WBC count stable; s/p Lactic acidosis - CXR 03/30: Acute left lower lobe infiltrate compatible with pneumonia/atelectasis. - Respiratory panel 03/30: Negative; MRSA screen: Negative - Blood cultures 03/30: No growth at 5 days - c/w Levofloxacin; Will DC Meropenem (Antibiotic day #6) Acute on chronic hypoxic respiratory failure - possibly 2/2 above, possibly 2/2 fluid overload 2/2 decompensated diastolic CHF - Hx of COPD on 8-10 liters of oxygen at baseline - ECHO 03/31: Impaired diastolic function, severe pulmonary hypertension, elevated CVP - c/w Solumedrol; c/w current dose - CTA 04/02: Left lower lobe infiltrate consistent with pneumonia. Stable pleuroparenchymal opacity right lower lobe which may be spiral atelectasis. No CT evidence of pulmonary embolism. Stable pretracheal mediastinal lymph nodes unchanged from September 20, 2017. - Strict ins/outs, daily weights - c/w Furosemide 40; will increase frequency Elevated troponin - likely 2/2 demand ischemia - Hx of [place] 2017 2/2 Sepsis - Hx of CAD s/p stent x3 (2013) - c/w ASA - Dr. Isabel on consultation; appreciate their input Transaminitis - possibly 2/2 shock liver - Has been trending down - Physical without abdominal tenderness - US abdomen 03/31: Significant gallbladder wall thickening and small amount of perihepatic ascites. No gallstones or sonographic Randhawa's sign. No biliary ductal dilatation. Chronic medical renal disease without hydronephrosis. Doppler interrogation consistent with cardiac disease. Acute renal failure - likely 2/2 pre-renal etiology - Improving - Avoid nephrotoxic medications - c/w NS Overactive bladder -s/p Oxybutynin s/p Urinary retention - possibly 2/2 constipation - c/w Bladder scans and straight catheterization if >500cc s/p Constipation - c/w Lactulose; will change to PRN s/p Hyperkalemia Gout - c/w allopurinol Chronic pain - c/w Baclofen, Gabapentin, Morphine Depression - c/w Escitalopram GI prophylaxis - c/w Protonix DVT prophylaxis - c/w Heparin Code Status: - DNR / DNI Disposition: - Awaiting clinical improvement - c/w Diuresis (Re: positive fluid balance) VS,Kailey, I+O VS, Dominice, I+O Laboratory Tests 04/05/18 04:06 Red Blood Count 4.59, Mean Corpuscular Volume 87.1, Mean Corpuscular Hemoglobin 28.5, Mean Corpuscular Hemoglobin Concent 32.8, Red Cell Distribution Width 18.6 H, Calcium Level 8.1 L, Aspartate Amino Transf (AST/SGOT) 217 H, Alanine Aminotransferase (ALT/SGPT) 1131 H, Alkaline Phosphatase 162 H, Total Bilirubin 1.5 H, Total Protein 5.3 L, Albumin 2.4 L Vital Signs Date Time Temp Pulse Resp B/P (MAP) Pulse Ox O2 Delivery O2 Flow Rate FiO2 04/05/18 12:00 25.0 04/05/18 12:00 97.6 78 17 129/64 (85) 90 Comfort Flow 03/31/18 09:00 55 I&O- Last 24 Hours up to 6 AM 04/05/18 05:59 Intake Total 1260 ml Output Total 3525 ml Balance -2265 ml FATIMAH SAHA MD Apr 05, 2018 13:02
[2018-04-05] MEDS: BISACODYL 5 MG TAB PO PRN (13:56)
[2018-04-05] MEDS: ASPIRIN 81 MG ENTERIC TAB PO SCH (21:24)
[2018-04-05] MEDS: LevoFLOXacin IV 750 MG in APPROPRIATE DILUENT 1 EA IV SCH (23:06)
[2018-04-06] VITALS (22 sets, daily range): BP systolic 82–144; BP diastolic 52–81; O2SAT 86–90
[2018-04-06] MEDS: IPRATROPIUM 0.5MG/ALBUTEROL 2.5MG INH SOL UD 3ML (DUONEB)(J7620) NEB SCH ×2 (01:47→07:53)
[2018-04-06] MEDS: methylPREDNISolone INJ 125 MG/2 ML VIAL (J2930) IV SCH ×2 (01:58→15:04)
[2018-04-06 04:39] LABS: HEMATOCRIT 39.9 % (42.0-52.0); HEMOGLOBIN 13.3 g/dl (13.5-17.5); MEAN CORPUSCULAR HEMOGLOBIN 28.7 pg (27.0-33.0); MEAN CORPUSCULAR HGB CONC 33.3 g/dl (32.0-36.5); MEAN CORPUSCULAR VOLUME 86.2 fl (80.0-96.0); RED BLOOD COUNT 4.63 10^6/uL (4.30-6.10); WHITE BLOOD COUNT 8.3 10^3/uL (4.0-10.0)
[2018-04-06 04:41] LABS: PLATELET COUNT, AUTOMATED 81 10^3/uL (150-450)
[2018-04-06 04:57] LABS: ALBUMIN 2.4 GM/DL (3.2-5.2); ALT/SGPT 839 U/L (12-78); BILIRUBIN,TOTAL 1.7 MG/DL (0.2-1.0); BLOOD UREA NITROGEN 31 MG/DL (7-18); C REACTIVE PROTEIN QUANTITATIV 1.67 MG/DL (0.00-0.30); CARBON DIOXIDE LEVEL 39 MEQ/L (21-32); CHLORIDE LEVEL 96 MEQ/L (98-107); CREATININE FOR GFR 0.71 MG/DL (0.70-1.30); GLOMERULAR FILTRATION RATE > 60.0 (>42); GLUCOSE, FASTING 114 MG/DL (70-100); MAGNESIUM LEVEL 1.8 MG/DL (1.8-2.4); POTASSIUM SERUM 3.4 MEQ/L (3.5-5.1); SODIUM LEVEL 140 MEQ/L (136-145); TOTAL PROTEIN 5.4 GM/DL (6.4-8.2)
[2018-04-06] MEDS: PANTOPRAZOLE 40MG INJ (PROTONIX) (C9113) IV SCH (05:43)
[2018-04-06] MEDS: MORPHINE 30 MG SA TAB PO SCH ×3 (05:43→21:50)
[2018-04-06] MEDS: POTASSIUM CHLORIDE 10 MEQ SR TABLET PO SCH ×2 (08:56→13:01)
[2018-04-06] MEDS: ACYCLOVIR 200 MG CAPSULE PO SCH ×3 (08:57→20:29)
[2018-04-06] MEDS: ALLOPURINOL 300 MG TAB PO SCH (08:57)
[2018-04-06] MEDS: SENOKOT S TAB PO SCH ×2 (08:57→20:29)
[2018-04-06] MEDS: BACLOFEN 10 MG TAB PO SCH ×2 (08:57→20:29)
[2018-04-06] MEDS: ESCITALOPRAM OXALATE 10 MG TAB (LEXAPRO) PO SCH (08:57)
[2018-04-06] MEDS: FUROSEMIDE 40 MG/4 ML VIAL (J1940) IV SCH ×2 (08:58→16:47)
--- NOTE | 2018-04-06 09:41 | REP ---
LIMITED ABDOMINAL ULTRASOUND: HISTORY: Elevated bilirubin. COMPARISON: 03/31/2018 There are no filling defects in the gallbladder. The gallbladder wall measures 2.3 mm and is decreased in thickness compared to the previous study. The common bile duct measures 5.4 mm. There is fatty infiltration of the liver. The pancreas is not seen due to overlying bowel gas. The right kidney measures 5.7 cm in transverse x 5 cm in AP x 11.2 cm in cephalocaudal dimensions. There is minimal cortical thinning . A small amount of free fluid is present in the right upper quadrant. IMPRESSION: 1. The gallbladder wall measures 2.3 mm in width and is decreased in thickness compared to the previous study. 2. Fatty infiltration of the liver. 3. There is a small amount of free fluid. Electronically Signed by Arash De León MD 04/06/2018 10:00 A
[2018-04-06] MEDS: MIRALAX *UNIT DOSE* 17GM PACKET PO PRN (13:01)
[2018-04-06] MEDS: GABAPENTIN 300 MG CAP PO SCH (13:01)
[2018-04-06] MEDS ORDERED: LEVALBUTEROL 1.25 MG/0.5 ML CONCENTRATE NEB INH PRN (14:15)
--- NOTE | 2018-04-06 14:19 | REP ---
Chest one-view HISTORY: Pneumonia Comparison: 03/30/2018 A diffuse increase in interstitial markings is present in the lungs consistent with chronic interstitial fibrosis. Patchy density is present in the lower lobes consistent with bibasilar atelectasis or infiltrates. The heart is normal in size. The pulmonary vasculature is normal in appearance. Impression: 1. Chronic interstitial fibrosis. 2. Bibasilar atelectasis or infiltrates new on the right and increased on the left. Electronically Signed by Arash De León MD 04/06/2018 02:10 P
[2018-04-06] MEDS: METOPROLOL 5 MG/5 ML VIAL IV SCH ×3 (14:20→14:53)
[2018-04-06 14:23] LABS: MB/CK RELATIVE INDEX 6.67 (< OR =4); TROPONIN I 0.13 NG/ML (< 0.10)
[2018-04-06] MEDS: LEVALBUTEROL 1.25 MG/0.5 ML CONCENTRATE NEB INH SCH ×2 (14:48→19:46)
[2018-04-06] MEDS ORDERED: METOPROLOL TART 12.5 MG PER 1/2 TAB As Ordered ONE (14:59)
[2018-04-06] MEDS ORDERED: METOPROLOL TART 12.5 MG PER 1/2 TAB PO ONE (15:15)
--- NOTE | 2018-04-06 15:15 | IPNPDOC ---
Text Note Date of Service The patient was seen on 04/06/18. NOTE Subjective: Patient is a 72 year old male with a PMHx CAD s/p stent x3 (2013), COPD on Home O2 (8-10L), Shoe Associate's lung, BPH, Hx of Bladder CA, Several spinal stenosis who presented to the ER after his concentrator stopped functioning. In the ER patient was found to be hypoxemic, febrile and hypotensive. Patient received IV fluid hydration was placed on BiPAP and antibiotics were started. Patient was admitted to the hospitalist service for further evaluation / treatment. Cardiology and pulmonary were called on consultation. Patient was seen and examined at the bedside. Patient notes that her breathing is doing better than the point of admission, however, not significantly better from day-to-day. Currently notes a productive cough. Denies chest pain. Denies abdominal pain, constipation, diarrhea. Has been urinating without any issues. This afternoon he began to experience palpitations. EKG was acquired, which revealed atrial flutter. Patient was given a dose of metoprolol 5 mg IV. Rhythm became atrial fibrillation, however, rate was controlled. Objective: Vitals (See below) General: Lying in bed, no acute distress, comfortable, AAOx3 HEENT: NC, AT CVS: RRR, +S1S2 Lungs: Fair air entry b/l, auscultation this morning does Abdomen: Soft, nondistended without tenderness Extremities: trace pitting edema at leg, pitting edema appreciated at thighs, - Calf tenderness Assessment and plan: s/p Severe sepsis - possibly 2/2 community acquired pneumonia - Still requiring supplemental oxygen - Remains afebrile - WBC count stable; s/p Lactic acidosis - CXR 03/30: Acute left lower lobe infiltrate compatible with pneumonia/atelectasis. - Respiratory panel 03/30: Negative; MRSA screen: Negative - Blood cultures 03/30: No growth at 5 days - c/w Levofloxacin; s/p Meropenem (Antibiotic day #7) Acute on chronic hypoxic respiratory failure - possibly 2/2 above, possibly 2/2 fluid overload 2/2 decompensated diastolic CHF - Hx of COPD on 8-10 liters of oxygen at baseline - ECHO 03/31: Impaired diastolic function, severe pulmonary hypertension, elevated CVP - c/w Solumedrol; c/w current dose - CTA 1/2: Left lower lobe infiltrate consistent with pneumonia. Stable pleuroparenchymal opacity right lower lobe which may be spiral atelectasis. No CT evidence of pulmonary embolism. Stable pretracheal mediastinal lymph nodes unchanged from September 20, 2017. - Strict ins/outs, daily weights - improving - c/w Furosemide - Dr. Strong on consultation; appreciate their input Elevated troponin - likely 2/2 demand ischemia - Hx of NM 2018 2/2 Sepsis - Hx of CAD s/p stent x3 (2013) - c/w ASA - Dr. Isabel / Dr. Nathan on consultation; appreciate their input Atrial fibrillation / Atrial flutter - Patient had noted chest palpitations - EKG 04/06: atrial flutter - s/p Metoprolol 5mg IV x 1 dose - c/w Metoprolol 12.5mg PO d2iouhs - Cardiology on consultation; consideration for anticoagulation Transaminitis - possibly 2/2 shock liver - Has been trending down - Physical without abdominal tenderness - US abdomen 03/31: Significant gallbladder wall thickening and small amount of perihepatic ascites. No gallstones or sonographic Randhawa's sign. No biliary ductal dilatation. Chronic medical renal disease without hydronephrosis. Doppler interrogation consistent with cardiac disease. Elevated bilirubin - likely 2/2 medications (likely antibiotics) - US abdomen 04/06: Gallbladder wall measures 2.3 mm in width and is decreased in thickness compared to the previous study. Fatty infiltration of the liver. There is a small amount of free fluid. - s/p Meropenem; will de-escalate therapy after completion of course Acute renal failure - likely 2/2 pre-renal etiology - Improving - Avoid nephrotoxic medications - c/w NS Overactive bladder -s/p Oxybutynin s/p Urinary retention - possibly 2/2 constipation - c/w Bladder scans and straight catheterization if >500cc s/p Constipation - c/w Lactulose PRN Hyperkalemia - will supplement Gout - c/w allopurinol Chronic pain - c/w Baclofen, Gabapentin, Morphine Depression - c/w Escitalopram GI prophylaxis - c/w Protonix DVT prophylaxis - c/w Heparin Code Status: - DNR / DNI Disposition: - Awaiting clinical improvement - c/w Diuresis VS,Fishbone, I+O VS, Fishbone, I+O Laboratory Tests 04/06/18 04:07 Red Blood Count 4.63, Mean Corpuscular Volume 86.2, Mean Corpuscular Hemoglobin 28.7, Mean Corpuscular Hemoglobin Concent 33.3, Red Cell Distribution Width 18.5 H, Calcium Level 8.0 L, Aspartate Amino Transf (AST/SGOT) 104 H, Alanine Aminotransferase (ALT/SGPT) 839 H, Alkaline Phosphatase 149 H, Total Bilirubin 1.7 H, Total Protein 5.4 L, Albumin 2.4 L Vital Signs Date Time Temp Pulse Resp B/P (MAP) Pulse Ox O2 Delivery O2 Flow Rate FiO2 04/06/18 14:48 90 Nasal Cannula 20.0 04/06/18 14:48 16 04/06/18 12:00 97.2 81 130/74 (92) 03/31/18 09:00 55 I&O- Last 24 Hours up to 6 AM 04/06/18 06:00 Intake Total 1950 ml Output Total 4450 ml Balance -2500 ml FATIMAH SAHA MD Apr 06, 2018 15:15
--- NOTE | 2018-04-06 16:00 | ECGEPIP ---
Stationary ECG Study [facility] Test Date: 2018-04-06 Pat Name: KWADWO QUILES Department: Room: Z2052-67 Gender: M Load Checker: JESSICA : 1945 Requested By: FATIMAH SAHA Order Number: [id number] Reading MD: Apolinar Nathan Measurements Intervals [place] Rate: 148 P: NV: 0 QRS: 57 QRSD: 122 T: 111 QT: 303 QTc: 476 Interpretive Statements ATRIAL FLUTTER/TACHYCARDIA WITH RAPID VENTRICULAR RESPONSE MODERATE INTRAVENTRICULAR CONDUCTION DELAY LVH ST DEVIATION AND MODERATE T-WAVE ABNORMALITY, CONSIDER ANTEROLATERAL ISCHEMIA COMPARED TO THE LAST 2 TRACINGS IN THE SYSTEM Electronically Signed On 04-06-2018 16:00:03 EST by Apolinar Nathan
--- NOTE | 2018-04-06 16:19 | CCN ---
DATE: 04/06/2018 CRITICAL CARE NOTE Critical care time was 1 hour and 27 minutes. Majority of the time spent at the patient's bedside discussing his current clinical situation and discussing with family. Mr. Whatley is a 72-year-old male who I met through his , as I took care of his , who had lung cancer. He is a 72-year-old male admitted with shortness of breath thought to be secondary to pneumonia and at the time he was admitted, had severe sepsis and hypoxia, known chronic obstructive lung disease and home oxygen at very high levels, 8-10 liters. Initially was on bilevel noninvasive therapy then converted to comfort flow 15 liters. He reached his maximum oxygen requirement around 04/03/2018, where he was up to 30 liters, with desaturations down to the mid 80s on comfort flow. Since that time, his primary team has been aggressively diuresing the patient. On 04/03/2018, he had of 4000 urine output. On 04/04/2018, another 2000 mL of urine output, and on 04/05/2018, another 3000 mL of urine output. His oxygen saturation is slowly improving; however, not yet back to baseline. I have reviewed the entire chart. Physical exam at the time I was seeing the patient, the patient was in atrial flutter, with rapid ventricular response rate of 150, respiratory rate of 16, blood pressure is 114/71, oxygen saturation 90% on 20 liters. Despite the tachycardia, the patient states he felt comfortable. He felt his breathing was much better than on arrival. GENERAL: The patient was sitting in his bed without respiratory distress. HEENT: Sclerae clear and anicteric. Pupils equal, round, reactive to light. Mucous membranes were moist. Tongue was midline. Dentition was in good repair. NECK: Supple. No tracheal deviation or mass. LYMPHATICS: No cervical supraclavicular axillary adenopathy. PULMONARY: Decreased breath sounds throughout. Bibasilar rales. Prolonged expiratory phase. No accessory muscle use. CARDIAC: Tachycardiac. S1, S2. I do not auscultate any murmur, rub or gallop. Point of maximum impulse (PMI) is slightly displaced laterally. ABDOMEN: Soft, nontender, nondistended. No hepatosplenomegaly. No masses or hernia. Bowel sounds are normoactive. EXTREMITIES: No cyanosis, clubbing or edema in the extremities. There is sacral edema. MUSCULOSKELETAL: Normal for stated age. No evidence of joint effusion or recent trauma. NEUROLOGIC: No unilateral weakness or tremor. IMAGING STUDIES: Chest x-ray ordered today, 04/06/2018, shows some improvement in the infiltrates. Much better clearing in the left lower lobe. Better chest expansion. There are chronic changes consistent with emphysema. There is a torturous trachea and some air in the abdomen. Chest CT does have bilateral infiltrates. The right lower lobe appears more rounded atelectasis and there is a comet tail with infiltrate in the right. There is some pleural base abnormalities were it is difficult to tell whether or not there is underlying malignancy. There is evidence of fluid overload and extensive emphysema throughout both lung jacinto with some interstitial change. Electrolytes show sodium 140, potassium 3.4, chloride of 96, bicarbonate of 39, BUN of 31, creatinine of 0.71, a glucose of 114. White blood cell count of 8.3, hemoglobin 13.3, platelet count of 81. AST is 104, ALT of 839, alkaline phosphatase 149, CRP 1.67, albumin of 2.4, Troponin slightly elevated at 0.1. IMPRESSION: 1. Severe hypoxic respiratory failure. Likely multifactorial. 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 No evidence of pulmonary embolism on CT angiogram. I agree with the aggressive efforts towards diuresis. I would continue to diurese as long as his renal function allows. He does have elevated enzymes, likely from passive hepatic congestion. He also likely has underlying pulmonary hypertension as documented by echocardiogram. He is covered for pneumonia with antibiotics, has had no significant fever or white count over the past few days. 2. Sepsis with probable underlying pneumonia. I believe this is improved. The most concerning is the severity of his hypoxia currently. 3. Advance directives. At this point in time, patient is DO NOT RESUSCITATE, is, at times, stating to his family and other physicians that he is not sure how much more he wants to go on. He will likely have continued difficulty with lung disease and, even without his current hospitalization, would be a candidate for hospice. I believe his lung disease limits his life expectancy. We will continue to have these discussions, but at this point in time, we will treat the patient and see how his symptoms and oxygen improve.
[2018-04-06] MEDS ORDERED: METOPROLOL TART 12.5 MG PER 1/2 TAB PO SCH (18:00)
[2018-04-06] MEDS ORDERED: AMIODARONE HCL 150 MG in APPROPRIATE DILUENT 1 EA IV STA (19:23)
[2018-04-06] MEDS: ASPIRIN 81 MG ENTERIC TAB PO SCH (20:29)
[2018-04-06] MEDS: METOPROLOL TART 12.5 MG PER 1/2 TAB PO SCH (20:30)
[2018-04-07] VITALS (14 sets, daily range): BP systolic 97–163; BP diastolic 56–81; O2SAT 94
[2018-04-07] MEDS: METOPROLOL TART 12.5 MG PER 1/2 TAB PO SCH ×4 (02:36→21:15)
[2018-04-07] MEDS: methylPREDNISolone INJ 125 MG/2 ML VIAL (J2930) IV SCH (02:37)
[2018-04-07 04:29] LABS: HEMOGLOBIN 13.7 g/dl (13.5-17.5); MEAN CORPUSCULAR HEMOGLOBIN 28.7 pg (27.0-33.0); MEAN CORPUSCULAR HGB CONC 32.6 g/dl (32.0-36.5); MEAN CORPUSCULAR VOLUME 87.9 fl (80.0-96.0); RED BLOOD COUNT 4.78 10^6/uL (4.30-6.10); WHITE BLOOD COUNT 9.7 10^3/uL (4.0-10.0)
[2018-04-07 04:30] LABS: PLATELET COUNT, AUTOMATED 79 10^3/uL (150-450)
[2018-04-07] MEDS: MORPHINE 30 MG SA TAB PO SCH ×3 (05:36→21:15)
[2018-04-07] MEDS: PANTOPRAZOLE 40MG INJ (PROTONIX) (C9113) IV SCH (05:36)
[2018-04-07 05:54] LABS: ALBUMIN 2.3 GM/DL (3.2-5.2); ALT/SGPT 586 U/L (12-78); BILIRUBIN,TOTAL 1.2 MG/DL (0.2-1.0); BLOOD UREA NITROGEN 38 MG/DL (7-18); C REACTIVE PROTEIN QUANTITATIV 1.14 MG/DL (0.00-0.30); CALCIUM LEVEL 7.9 MG/DL (8.8-10.2); CARBON DIOXIDE LEVEL 39 MEQ/L (21-32); CHLORIDE LEVEL 95 MEQ/L (98-107); CREATININE FOR GFR 0.82 MG/DL (0.70-1.30); GLOMERULAR FILTRATION RATE > 60.0 (>42); GLUCOSE, FASTING 96 MG/DL (70-100); MAGNESIUM LEVEL 2.1 MG/DL (1.8-2.4); POTASSIUM SERUM 4.3 MEQ/L (3.5-5.1); SODIUM LEVEL 138 MEQ/L (136-145); TOTAL PROTEIN 5.1 GM/DL (6.4-8.2)
[2018-04-07] MEDS: LEVALBUTEROL 1.25 MG/0.5 ML CONCENTRATE NEB INH SCH ×5 (08:06→19:27)
--- NOTE | 2018-04-07 08:52 | IPN ---
DATE: 04/07/2018 Mr. Whatley tells me that he is feeling a little better. He still complains about shortness of breath with minimal activity, but his desaturation is improving. As far as heart rate is concerned, it is principally in the 50s and sinus rhythm, even though he has very frequent episodes of what looks to me as atrial tachycardia with a heart rate of 120 to 130, but the frequency is clearly improving. He denies any chest pain. Vital Signs: Blood pressure at 4 o'clock this morning was 163/81, but generally is lower than that. Heart rate mostly 50s when in sinus rhythm and occasionally 60s and gets occasionally faster during these brief episodes of supraventricular tachycardia. Saturation is a 94% on comfort flow by nasal cannula. His fluid balance yesterday was about a liter negative and he has been consistently diuresing since his admission. Weight is currently 76 kg. His jugular venous pulse (JVP) does not look high. Lungs reveal occasional rhonchi. I do not appreciate any wheezing or crackles. Air movement is fair at best. Heart exam reveals somewhat muffled heart sounds, but I do not appreciate any gallop, rub or murmur. Abdomen is soft. There is no obvious tenderness. There is no peripheral edema. Peripheral pulses are palpable. Neurologically he is alert and appropriate and intact. Basic metabolic panel: Potassium 4.3, creatinine 0.8, glucose 96, magnesium 2.1, albumin 2.3. CBC: Hemoglobin 13.7, hematocrit 42, platelet count 79,000. Current cardiac medications include metoprolol 12.5 every 6 hours with holding parameters, furosemide 40 mg IV twice a day and aspirin. The last chest x-ray was performed yesterday and is consistent with chronic fibrotic disease. No obvious congestive heart failure is appreciated. ASSESSMENT/PLAN: Mr. Whatley is a 72-year-old man who has chronic respiratory failure and has been short of breath for years. He presented with sepsis and that was further complicated by [id number] myocardial infarction. It was believed to be principally type 2 myocardial infarction ([place]) driven by his severe hypoxemia on presentation. He has been treated medically. There has not been any chest discomfort and his condition is slowly improving. From a cardiac perspective, the additional problem is presence of supraventricular arrhythmias. He received amiodarone last night and still has brief episodes. For the time being, I am going to refrain from giving him additional doses of amiodarone and will try to continue small doses of metoprolol. It looks like the trend is improving. If recurrent sustained episodes are present though, I believe that amiodarone should be administered again as his tachycardia would not be well tolerated in a longer horizon. It was felt that the risk of full anticoagulation outweighs its benefit in this setting as he has thrombocytopenia and was septic, but I am going to put him on a statin. He does not have statin listed in his allergy and he has definite coronary artery disease.
[2018-04-07] MEDS: FUROSEMIDE 40 MG/4 ML VIAL (J1940) IV SCH ×2 (09:08→17:00)
[2018-04-07] MEDS: ESCITALOPRAM OXALATE 10 MG TAB (LEXAPRO) PO SCH (09:08)
[2018-04-07] MEDS: BACLOFEN 10 MG TAB PO SCH ×2 (09:09→21:15)
[2018-04-07] MEDS: ACYCLOVIR 200 MG CAPSULE PO SCH ×3 (09:09→21:15)
[2018-04-07] MEDS: SENOKOT S TAB PO SCH ×2 (09:09→21:00)
[2018-04-07] MEDS: ALLOPURINOL 300 MG TAB PO SCH (09:09)
[2018-04-07] MEDS: LevoFLOXacin 750 MG TABLET PO SCH (11:45)
[2018-04-07] MEDS: GABAPENTIN 300 MG CAP PO SCH (11:45)
[2018-04-07] MEDS: predniSONE 20 MG TAB PO SCH (11:46)
--- NOTE | 2018-04-07 14:58 | IPNPDOC ---
Text Note Date of Service The patient was seen on 04/07/18. 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 In the ER patient was found to be hypoxemic, febrile and hypotensive. Patient received IV fluid hydration was placed on BiPAP and antibiotics were started. Patient was admitted to the hospitalist service for further evaluation / treatment. Cardiology and pulmonary were called on consultation. Patient was seen and examined at the bedside. He notes that his breathing has improved. Denies any CP or palpitations. His HR has generally been controlled. He has not experienced any N/V, abdominal pain, C/D or dysuria. Objective: Vitals (See below) General: Lying in bed, no acute distress, comfortable, AAOx3 HEENT: NC, AT CVS: RRR, +S1S2 Lungs: Fair air entry b/l, no significant wheezing / rhonchi / + rales on L lower lung filed Abdomen: Soft, without tenderness or distension Extremities: pitting edema present above stockings, - Calf tenderness Assessment and plan: s/p Severe sepsis - possibly 2/2 community acquired pneumonia - Still requiring supplemental oxygen at high flow - Remains afebrile - WBC count stable; s/p Lactic acidosis - CXR 03/30: Acute left lower lobe infiltrate compatible with pneumonia/atelectasis. - Respiratory panel 03/30: Negative; MRSA screen: Negative - Blood cultures 03/30: No growth at 5 days - c/w Levofloxacin - will change to PO; s/p Meropenem (Antibiotic day #8) Acute on chronic hypoxic respiratory failure - possibly 2/2 above, possibly 2/2 fluid overload 2/2 decompensated diastolic CHF - Hx of COPD on 8-10 liters of oxygen at baseline - ECHO 03/31: Impaired diastolic function, severe pulmonary hypertension, eleva lindsey CVP - CTA 04/02: Left lower lobe infiltrate consistent with pneumonia. Stable pleuroparenchymal opacity right lower lobe which may be spiral atelectasis. No CT evidence of pulmonary embolism. Stable pretracheal mediastinal lymph nodes unchanged from September 20, 2017. - Strict ins/outs, daily weights - improving - Will start Prednisone; DC Solumedrol - c/w Furosemide - will monitor renal function - Dr. Strong on consultation; appreciate their input Elevated troponin - likely 2/2 demand ischemia - Hx of [place] 2017 2/2 Sepsis - Hx of CAD s/p stent x3 (2013) - c/w ASA - Dr. Isabel / Dr. Nathan / Dr. Jonas (Cardiology) on consultation; appreciate their input Atrial fibrillation / Atrial flutter - Patient had noted chest palpitations - EKG 04/06: atrial flutter - s/p Metoprolol 5mg IV x 1 dose; s/p Amiodarone - c/w Metoprolol 12.5mg PO [id number] - Cardiology on consultation; discussed risks/benefits of anticoagulation; at this point will hold Transaminitis - possibly 2/2 shock liver / hepatic congestion - Has been trending down - Physical without abdominal tenderness - US abdomen 03/31: Significant gallbladder wall thickening and small amount of perihepatic ascites. No gallstones or sonographic Randhawa's sign. No biliary ductal dilatation. Chronic medical renal disease without hydronephrosis. Doppler interrogation consistent with cardiac disease. Elevated bilirubin - likely 2/2 medications (likely antibiotics) - US abdomen 04/06: Gallbladder wall measures 2.3 mm in width and is decreased in thickness compared to the previous study. Fatty infiltration of the liver. There is a small amount of free fluid. - s/p Meropenem; will de-escalate therapy after completion of course Acute renal failure - likely 2/2 pre-renal etiology - Improving - Avoid nephrotoxic medications - c/w NS Overactive bladder -s/p Oxybutynin s/p Urinary retention - possibly 2/2 constipation - c/w Bladder scans and straight catheterization if >500cc s/p Constipation - c/w Lactulose PRN s/p Hyperkalemia Gout - c/w allopurinol Chronic pain - c/w Baclofen, Gabapentin, Morphine Depression - c/w Escitalopram GI prophylaxis - c/w Protonix DVT prophylaxis - c/w SCDs Code Status: - DNR / DNI Disposition: - Awaiting clinical improvement - c/w Diuresis VS,Fishbone, I+O VS, Fishbone, I+O Laboratory Tests 04/07/18 04:06 Red Blood Count 4.78, Mean Corpuscular Volume 87.9, Mean Corpuscular Hemoglobin 28.7, Mean Corpuscular Hemoglobin Concent 32.6, Red Cell Distribution Width 18.6 H, Calcium Level 7.9 L, Aspartate Amino Transf (AST/SGOT) 60 H, Alanine Aminotransferase (ALT/SGPT) 586 H, Alkaline Phosphatase 136 H, Total Bilirubin 1.2 H, Total Protein 5.1 L, Albumin 2.3 L Vital Signs Date Time Temp Pulse Resp B/P (MAP) Pulse Ox O2 Delivery O2 Flow Rate FiO2 04/07/18 12:00 15.0 04/07/18 12:00 98.3 118 20 108/57 (74) 87 Comfort Flow I&O- Last 24 Hours up to 6 AM 04/07/18 06:00 Intake Total 1770 ml Output Total 2700 ml Balance -930 ml FATIMAH SAHA MD Apr 07, 2018 14:58
[2018-04-07] MEDS: MIRALAX *UNIT DOSE* 17GM PACKET PO PRN (15:13)
--- NOTE | 2018-04-07 16:01 | IPN ---
DATE OF SERVICE: 04/06/2018 I was called to see Mr. Gerda Whatley because of paroxysmal atrial fibrillation associated with chest pain. This happened earlier today, in the afternoon. It was going about 150 beats per minute initially. He was given a dose of intravenous IV Lopressor/metoprolol tartrate and he spontaneously converted to a normal sinus rhythm but continued to have bouts of episodes of paroxysmal atrial flutter/atrial fibrillation (AFib). He stated that each time his heartbeat goes fast, he feels discomfort in his chest. Otherwise he was sitting comfortable in his bed in no acute distress at rest when I was at bedside. PHYSICAL EXAMINATION: On physical examination, patient is alert and oriented and in no acute distress. His most recent vital signs reveal a blood pressure of 97/54 - 118/60 with a pulse that varied when I was at bedside between 83 beats per minute up to 130 beats per minute, respirations 20, and his maximum temperature was 98.2 degrees Fahrenheit with an oxygen saturation of 92% on Comfort Adolfo of 20 liters. He has a negative fluid balance of 3.1 liters for 04/05/2018. Examination of the head: Atraumatic. Neck is supple. The lungs revealed dry crackles at the bases but no wheezing. The heart examination revealed an irregular heart sound without gallops. The point of maximal impulse (PMI) is displaced inferiorly and laterally. There is no rub. Abdomen is soft and nontender. Extremities reveal no pedal edema. Neurologic examination grossly is negative for focal deficit. LABORATORIES: A complete blood count (CBC) revealed a white blood cell (WBC) of 8.3, hemoglobin 13.3, hematocrit 39.9, and platelets 81,000. Basic metabolic panel (BMP) revealed a sodium of 140, potassium 3.4, chloride 96, CO2 39, BUN 31, creatinine 0.71, glomerular filtration rate (GFR) more than 60, fasting glucose 114, and calcium 8.0. Serum magnesium is 1.8. Liver enzymes reveal a total bilirubin of 1.7, AST of 104, ALT of 139, alkaline phosphatase 149, total protein 5.4, albumin 2.4. One set of serum troponin done after that episode was 0.13 with a total creatine phosphokinase (CPK) of 60, CK-MB 4.0 and a relative index 6.67. Most recent serum troponin level on 03/31/2018 was 1.14 with a CPK of 310, CK-MB of 8.0 and relative index of 2.42. IMPRESSION: 1. Paroxysmal atrial fibrillation/flutter, symptomatic. The patient will continue with the current dose of the beta-rocky but we will need to monitor closely his blood pressure because his blood pressure is relatively low. He will be given a dose of intravenous (IV) amiodarone and hopefully this will maintain him in normal sinus rhythm. Prior to today, he was not on any cardiac medications. Current cardiac medications, including IV Lasix/furosemide since this hospitalization. We will hold on anticoagulation at this present time. 2. History of coronary artery disease (CAD) with history of myocardial infarction and percutaneous transluminal coronary angioplasty (PTCA)/stent. Earlier this year, he had a negative nuclear stress test. Echocardiogram done on 03/31/2018 revealed a mildly depressed global left ventricular systolic function estimated at 45% to 50%. 3. Hyperlipidemia off statin in view of his abnormal liver function tests (LFTs). 4. History of chronic obstructive pulmonary disease (COPD) and pulmonary fibrosis. He has been on high flow oxygen. 5. Sepsis secondary to pneumonia and this is improving. It was a pleasure to participate in the care of Mr. Gerda Whatley for his underlying cardiac condition. I will continue to monitor him along with you while in the hospital. At this present time, he appears to be stable.
[2018-04-07] MEDS: NYSTATIN 500,000 U/5 ML SUSP UDC SS SCH (18:05)
[2018-04-07] MEDS: ATORVASTATIN 20 MG TAB PO SCH (21:12)
[2018-04-07] MEDS: ASPIRIN 81 MG ENTERIC TAB PO SCH (21:15)
[2018-04-08] VITALS: BP 124/76
[2018-04-08] MEDS: NYSTATIN 500,000 U/5 ML SUSP UDC SS SCH ×4 (00:21→18:13)
[2018-04-08] MEDS: METOPROLOL TART 12.5 MG PER 1/2 TAB PO SCH ×4 (03:00→21:00)
[2018-04-08 04:00] VITALS: BP 109/62
[2018-04-08] MEDS: LevoFLOXacin 750 MG TABLET PO SCH (06:00)
[2018-04-08] MEDS: PANTOPRAZOLE 40MG INJ (PROTONIX) (C9113) IV SCH (06:19)
[2018-04-08] MEDS: MORPHINE 30 MG SA TAB PO SCH ×3 (06:21→22:00)
[2018-04-08 08:00] VITALS: BP 99/56
[2018-04-08] MEDS: LEVALBUTEROL 1.25 MG/0.5 ML CONCENTRATE NEB INH SCH ×3 (08:00→15:00)
[2018-04-08] MEDS: predniSONE 20 MG TAB PO SCH (08:42)
[2018-04-08] MEDS: ALLOPURINOL 300 MG TAB PO SCH (08:43)
[2018-04-08] MEDS: ESCITALOPRAM OXALATE 10 MG TAB (LEXAPRO) PO SCH (08:43)
[2018-04-08] MEDS: BACLOFEN 10 MG TAB PO SCH ×2 (08:43→21:00)
[2018-04-08] MEDS: ACYCLOVIR 200 MG CAPSULE PO SCH ×3 (08:43→21:00)
[2018-04-08] MEDS: SENOKOT S TAB PO SCH ×2 (09:00→21:00)
[2018-04-08] MEDS: FUROSEMIDE 40 MG/4 ML VIAL (J1940) IV SCH ×2 (09:00→16:11)
[2018-04-08 12:00] VITALS: BP 102/58
--- NOTE | 2018-04-08 12:09 | IPNPDOC ---
Date Seen The patient was seen on 04/08/18. Progress Note Patient seen this morning with his daughter bedside patient declines physical exam he once again reiterates his wishes to be comfort measures only and that he slept good light he declines further interventions she television or reading in order to resolve power of assistant attorney general issues. We're also awaiting further family members. Once in completed today the patient will be made comfort measures only at his request nonessential medications blood draws vital signs will see some we'll begin weaning his O2 and providing him with IV morphine as needed I did discuss with him at length that should he decompensate quickly we will keep him comfortable and medicated here in hospital however should require longer time I will place a consult to hospice tomorrow for the time being he did not require i ntensive care unit does not necessitate to remain in the intensive care unit. VS, I&O, 24H, Fishbone Vital Signs/I&O Vital Signs Date Time Temp Pulse Resp B/P (MAP) Pulse Ox O2 Delivery O2 Flow Rate FiO2 04/08/18 08:00 20.0 04/08/18 08:00 97.9 84 18 99/56 (70) 87 Comfort Flow I&O- Last 24 Hours up to 6 AM 04/08/18 05:59 Intake Total 1905 ml Output Total 3100 ml Balance -1195 ml Laboratory Data Microbiology Microbiology 03/30/18 Blood Culture - Final, Complete NO GROWTH AFTER 5 DAYS 03/30/18 Blood Culture - Final, Complete NO GROWTH AFTER 5 DAYS 04/02/18 MRSA Screen - Final, Complete 03/30/18 Respiratory Virus Panel (PCR) ([facility]) - Final, Complete JANETTE LOPEZ MD Apr 08, 2018 12:09
[2018-04-08] MEDS: GABAPENTIN 300 MG CAP PO SCH (13:21)
[2018-04-08 14:45] VITALS: BP 122/75
[2018-04-08 16:16] VITALS: BP 122/75
[2018-04-08] MEDS: MORPHINE 4 MG/ML 1ML VIAL/SYRINGE (J2270) IV PRN ×3 (16:38→23:36)
[2018-04-08] MEDS: LORazepam 2 MG/ML VIAL (J2060) IV PRN ×2 (18:00→22:02)
[2018-04-08] MEDS: ATORVASTATIN 20 MG TAB PO SCH (21:00)
[2018-04-08] MEDS: ASPIRIN 81 MG ENTERIC TAB PO SCH (21:00)
[2018-04-08] MEDS ORDERED: SCOPOLAMINE 1MG TRANSDERMAL PATCH TOP PRN (23:15)
[2018-04-08] MEDS ORDERED: ACETAMINOPHEN 650 MG SUPP PR PRN (23:15)
--- NOTE | 2018-04-08 23:26 | IPNPDOC ---
Date Seen The patient was seen on 04/08/18. 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 I reviewed the MOLST form which was signed on 04/07/18 by the patient and living will which states he (Mr. Whatley) would like to be REFRESH TECHNICIAN only. Medical Orders where changed to reflect as wishes: Morphine 2mg IV Q2H prn FOR COMFORT alternating with Ativan 1mg IV q2h prn FOR COMFORT and scopolamine patch for excessive secretion. The family and nurses where informed of these changes. VS, I&O, 24H, Fishbone Vital Signs/I&O Vital Signs Date Time Temp Pulse Resp B/P (MAP) Pulse Ox O2 Delivery O2 Flow Rate FiO2 04/08/18 21:10 10 04/08/18 20:55 Nasal Cannula 04/08/18 16:16 84 122/75 04/08/18 14:55 20.0 04/08/18 14:45 97.3 92 I&O- Last 24 Hours up to 6 AM 04/08/18 06:00 Intake Total 1955 ml Output Total 3100 ml Balance -1145 ml Laboratory Data Microbiology Microbiology 03/30/18 Blood Culture - Final, Complete NO GROWTH AFTER 5 DAYS 03/30/18 Blood Culture - Final, Complete NO GROWTH AFTER 5 DAYS 04/02/18 MRSA Screen - Final, Complete 03/30/18 Respiratory Virus Panel (PCR) ([facility]) - Final, Complete GME ATTESTATION GME ATTESTATION My faculty preceptor for this patient encounter was physically present during the encounter and was fully available. All aspects of the patient interview, examination, medical decision making process, and medical care plan development were reviewed and approved by the faculty preceptor. The faculty preceptor is aware and concurs with the plan as stated in the body of this note and will attest to such by his/her cosignature. ALEXX PADRON DO Apr 08, 2018 23:26
[2018-04-09] MEDS: LORazepam 2 MG/ML VIAL (J2060) IV PRN ×11 (00:41→22:53)
[2018-04-09] MEDS: MORPHINE 4 MG/ML 1ML VIAL/SYRINGE (J2270) IV PRN ×3 (02:59→09:41)
[2018-04-09] MEDS ORDERED: PREVNAR 13 VACCINE SYRINGE (CPT CODE:90670) IM ONE (09:00)
[2018-04-09] MEDS: MORPHINE SULF IN 0.9% NACL 100 MG in APPROPRIATE DILUENT 1 EA IV SCH ×4 (10:28→18:03)
[2018-04-10] MEDS: LORazepam 2 MG/ML VIAL (J2060) IV PRN ×15 (04:10→23:00)
[2018-04-10] MEDS: MORPHINE SULF IN 0.9% NACL 100 MG in APPROPRIATE DILUENT 1 EA IV SCH ×6 (09:34→16:42)
[2018-04-10] MEDS ORDERED: MORPHINE SULF IN 0.9% NACL 100 MG in APPROPRIATE DILUENT 1 EA IV SCH ×2 (11:00)
[2018-04-11] MEDS: LORazepam 2 MG/ML VIAL (J2060) IV PRN ×15 (00:24→23:08)
[2018-04-11] MEDS: MORPHINE SULF IN 0.9% NACL 100 MG in APPROPRIATE DILUENT 1 EA IV SCH ×6 (02:07→19:45)
[2018-04-11] MEDS ORDERED: MORPHINE 1MG/ML IN 0.9% NACL 100ML IV BAG As Ordered ONE ×2 (10:30→19:36)
[2018-04-12] MEDS: LORazepam 2 MG/ML VIAL (J2060) IV PRN ×6 (00:24→07:28)
[2018-04-12] MEDS: MORPHINE SULF IN 0.9% NACL 100 MG in APPROPRIATE DILUENT 1 EA IV SCH ×2 (04:40)
--- NOTE | 2018-04-13 21:20 | DSES ---
DATE OF ADMISSION: 03/31/2018 DATE OF : 04/12/2018 TIME OF : 9:30 a.m. 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 SECONDARY DIAGNOSES: 1. Severe sepsis. 2. Community-acquired pneumonia. 3. Acute on chronic hypoxic respiratory failure. 4. Decompensated diastolic congestive heart failure (CHF). 5. Elevated troponin. 6. Atrial fibrillation. 7. Transaminitis. 8. Elevated bilirubin. 9. Acute renal failure. 10. Overactive bladder. 11. Urinary retention. 12. Constipation. 13. Hyperkalemia. 14. Gout. 15. Chronic back pain. 16. Depression. HOSPITAL COURSE: The patient is a 72-year-old man who initially presented with severe hypoxic respiratory failure. He was on noninvasive mechanical ventilation in the medical intensive care unit (ICU). He was seen in consultation by pulmonary, as well as Dr. Jonas of cardiology. He did initially have some improvement, however, was unable to have return to his baseline. Given the severe and advanced nature of his end stage lung disease requiring 8 liters at his baseline, the patient elected for hospice care and comfort measures only. He had a lengthy discussion with his family. Power of contracts attorney paperwork was completed. Medical Orders for Life Sustaining Treatment (MOLST) form was completed, signed and placed in the chart. The patient waited until all of his family was able to present to the bedside before initiating comfort measures only. The patient remained in the hospital for adequate comfort to be provided. He on 04/12/2018 at 9:30 a.m. Less than 30 minutes was spent organizing disposition.
== END 2018-04-12 10:00 | disposition expired | DRG 871 ==
LOC: EDBD 19:58 → M ED 19:58 → M ED INP 03-31 00:23 → M ICU 03-31 01:13 → M MSPAV 04-08 14:41
PROVIDERS: ADMIT Internal Medicine; ATTEND Internal Medicine
DX: A41.9 Sepsis, unspecified organism (principal); J18.9 Pneumonia, unspecified organism; K72.00 Acute and subacute hepatic failure without coma; I21.4 Non-ST elevation (NSTEMI) myocardial infarction; I50.31 Acute diastolic (congestive) heart failure; J96.21 Acute and chronic respiratory failure with hypoxia; N17.9 Acute kidney failure, unspecified; E87.2 Acidosis; R65.20 Severe sepsis without septic shock; R74.0 Nonspecific elevation of levels of transaminase and lactic acid dehydrogenase [LDH]; E87.5 Hyperkalemia; I48.91 Unspecified atrial fibrillation; M10.9 Gout, unspecified; M54.5 Low back pain; F32.9 Major depressive disorder, single episode, unspecified; K59.00 Constipation, unspecified; R33.9 Retention of urine, unspecified; J44.9 Chronic obstructive pulmonary disease, unspecified; Z51.5 Encounter for palliative care; J60 Coalworker's pneumoconiosis; N40.0 Benign prostatic hyperplasia without lower urinary tract symptoms; I25.2 Old myocardial infarction; Z79.899 Other long term (current) drug therapy; Z88.0 Allergy status to penicillin; Z66 Do not resuscitate; I11.0 Hypertensive heart disease with heart failure; E78.5 Hyperlipidemia, unspecified